=== PATIENT | male | born 1960 | race Caucasian/White ===

== ENCOUNTER 2024-10-01 09:32 | Day surgery (SDC) | payer MEDICARE, BC, SELFPAY ==
--- OUTSIDE RECORDS SUMMARY | 2024-09-27 12:03 | XMS_ITS | Clinical Summary ---
Author Organization [facility] Address [address] [place] [address] Care Team Providers Care Farm Service Adviser Name Role Phone Radhames Casas Primary Care Provider [phone] Allergies No known active allergies Medications clonazePAM (KLONOPIN) 0.5 mg oral tablet Take 1 tablet (0.5 mg) by mouth four times a day as needed (anxiety). Active insulin glargine, pen, (BASAGLAR KWIKPEN U-100 INSULIN) 100 unit/mL SubQ pen Inject 30 Units under the skin at bedtime. Active metFORMIN ER (GLUCOPHAGE XR) 500 mg oral extended release tablet 24 HR Take 3 tablets (1,500 mg) by mouth once a day with evening meal. Active omeprazole (PRILOSEC) 40 mg oral delayed release capsule Take 1 capsule (40 mg) by mouth once daily. Active sildenafiL (VIAGRA) 100 mg oral tablet Take 1 tablet (100 mg) by mouth as needed. Active traZODone (DESYREL) 100 mg oral tablet Take 2-3 tablets (200-300 mg) by mouth at bedtime as needed for sleep. Active ziprasidone hcl (GEODON) 40 mg oral capsule Take 1 capsule (40 mg) by mouth twice a day with breakfast and dinner. Active tamsulosin (FLOMAX) 0.4 mg oral capsule Take 1 capsule (0.4 mg) by mouth once daily. 90 capsule 02/08/2021 2:29 PM CDT Active Additional Information Patient taking differently:0.4 mg oralTWICE A DAY, Reported on 06/20/2023 FLUoxetine (PROZAC) 40 mg oral capsule TAKE 2 CAPSULES BY MOUTH ONCE DAILY 1 Active sucralfate (CARAFATE) 1 gram oral tablet Take 1 tablet (1 g) by mouth twice a day. 3 Active losartan (COZAAR) 50 mg oral tablet Take 1 tablet (50 mg) by mouth Daily. 3 Active terbinafine HCL (LAMISIL) 1 % Top cream Apply 1 Application to skin as directed. 3 Active oxyCODONE-aceta minophen (PERCOCET) 5-325 mg oral tablet Take 1 tablet by mouth every 6 (six) hours as needed. 10 tablet 06/21/2023 4:00 PM CDT 3 Active docusate sodium (COLACE) 100 mg oral capsule Take 1 capsule (100 mg) by mouth twice a day. 30 capsule 06/21/2023 4:00 PM CDT 3 Active phenazopyridine (PYRIDIUM) 100 mg oral tablet Take 1 tablet (100 mg) by mouth three times a day. 6 tablet 3 Active Active Problems Problem Noted Date Diagnosed Date Multiple fractures of rib involving four or more ribs 02/05/2021 Accidental fall from ladder 02/05/2021 Closed fracture of transvers e process of lumbar vertebra (Left L2) with routine healing 02/05/2021 Hip hematoma, left, initial encounter 02/05/2021 Family History Medical History Relation Comments Mental Illness Mother Relation Status Comments Mother Social History Tobacco Use Types Packs/Day Years Used Date Smoking Tobacco: Former Smokeless Tobacco: Never Alcohol Use Standard Drinks/Week Comments Yes 0 (1 standard drink = 0.6 oz pur e alcohol) social Sex and Gender Information Value Date Recorded Sex Assigned at Not on file Legal Sex Male 1:42 AM CDT Gender Identity Not on file Sexual Orientation Not on file Last Filed Vital Signs Vital Sign Reading Time Taken Comments Blood Pressure 150/97 06/21/2023 4:00 PM CDT Pulse 70 06/21/2023 4:00 PM CDT Temperature 36.4 C (97.5 F) 06/21/2023 2:53 PM CDT Respiratory Rate 16 06/21/2023 4:00 PM CDT Oxygen Saturation 97% 06/21/2023 4:00 PM CDT Inhaled Oxygen Concentration - - Weight 93.4 kg (206 lb) 06/20/2023 9:20 AM CDT Height 182.9 cm (6') 06/20/2023 9:20 AM CDT Body Mass Index 27.94 06/20/2023 9:20 AM CDT Plan of Treatment Health Maintenance Due Date Last Done Comments Colonoscopy 1960 Eye Exam 1960 Hepatitis C Screening 1960 Lipid Screening 1960 Microalbumin Q12 Month 1960 Anxiety Screening (NENA-2) 1961 Depression Assessment (PHQ-2) 1961 Zoster Vaccine (1 of 2) 2010 Pneumococcal <65 (2 of 2 - PCV) 10/09/2013 3, 12/05/2007 Adult Tetanus Booster 03/31/2017 03/31/2007 RSV Vaccines (1 - Risk 60-74 years 1-dose series) 2020 HgbA1C 08/09/2021 02/06/2021 Yearly Review of HCD 02/05/2022 02/05/2021 Creatinine 05/20/2024 05/20/2023, 04/26, 02/06/2021, Additional history exists COVID-19 Vaccine (1 - 2023-2 5 season) 2024 10/14/2021 Influenza Vaccine (#1) 2024 0, 10/02/2019, 09/13/2018, Additional history exists Procedures Procedure Name Priority Date/Time Associated Diagnosis Comments BASIC METAB PROFILE Routine 02/06/2021 6 :50 AM CDT HBA1C / EAG Routine 02/06/2021 6:50 AM CDT from Last 3 Months or Most Recently Relevant to Health Maintenance Results * (ABNORMAL) Hgb A1c (Glycosolated Hgb) (02/06/2021 6:50 AM CDT) HBA1C (GLYCOSOLATED HGB) 10.2(H) <5.7 % 02/06/2021 10:[address] [facility] EAG (EST. AVERAGE GLUCOSE) 246(H) <117 mg/dL 02/06/2021 10:25 AM [facility] Blood 02/06/2021 6:50 AM CDT 02/06/2021 7:35 AM CDT Peri Garcia [facility] CHEMISTRY ORDERABLE Final Re sult [facility] [address] [place] [address] * (ABNORMAL) Basic Metabolic Profile (02/06/2021 6:50 AM CDT) Sodium 136 136 - 145 mmol/L 02/06/2021 7:55 AM [facility] Potassium 3.7 3.5 - 5.1 mmol/L 02/06/2021 7:55 AM [facility] Chloride 104 98 - 112 mmol/L 02/06/2021 7:55 AM [facility] Carbon Dioxide 29 21 - 32 mmol/L 02/06/2021 7:55 AM [facility] BUN (Urea Nitro) 13 7 - 24 mg/dL 02/06/2021 7:55 AM [facility] Creatinine 0.80 0.70 - 1.30 mg/dL 02/06/2021 7:55 AM [facility] Est GFR (CKD-EPI) >60 >60 mL/min 02/06/2021 7:55 AM [facility] EST GFR IF AM >60 >60 mL/min 02/06/2021 7:55 AM [facility] Glucose 238(H) 74 - 106 mg/dL 02/06/2021 7:55 AM [facility] Calcium, Serum 8.8 8.5 - 10.1 mg/dL 02/06/2021 7:55 AM [facility] Anion Gap 3.0 0.0 - 15.0 mmol/L 02/06/2021 7:55 AM [facility] Blood 02/06/2021 6:50 AM CDT 02/06/2021 7:34 AM CDT us William Chamberlain [employer], [employer]BLER CHEMISTRY ORDERABL E Final Result [facility] [address] [id number] from Last 3 Months or Most Recently Relevant to Health Maintenance Insurance [id number] [place] [address] MEDICARE PART A & B [facility] [employer] [id number] [place] [address] Advance Directives For more information, please contact: [phone] * Full Code (Latest Code Status on File) Date Activated Date Inactivated Comments 06/21/2023 2:40 PM 06/21/2023 10:51 PM Question Answer Comments How was code status determined? Patient * Full Code Date Activated Date Inactivated Comments 02/05/2021 5:27 AM 02/08/2021 9:54 PM Question Answer Comments How was code status determined? Patient Care Teams Farm Service Adviser Relationship Specialty Start Date End Date Radhames Casas [address] [facility] [place] [address] PCP - General Family Medicine 02/05/21
--- OUTSIDE RECORDS SUMMARY | 2024-09-27 12:03 | XMS_ITS | Data Portability ---
Author Organization [place] - Dragan Mayorgalo gy, [facility] Address [address] [place] [address] Care Team Providers Care [employer] Manager Name Role Phone NOLBERTO TAVERA Primary Care Provider Assessment No assessment recorded. Plan of Treatment Reminders Order Date Submit Date Provider Last Modified By Organization Details Last Modified Time Details Appointments None recorded. Lab urinalysi s, dipstick 2022 023 [email or web address] [facility], [address], [place], [address], Ph 3 11:36:34 Referral None recorded. Procedures bladder scan (PROC) 2021 022 [email or web address] [facility], [address], [address], [place], [address], Ph 2 12:00:39 bladder scan (PROC) 2022 023 [email or web address] [facility], [address], [address], [place], [address], Ph 3 11:36:34 bladder scan (PROC) 2022 023 [email or web address] [facility], [address], [address], [place], [address], Ph [phone] 11:45:55 bladder scan (PROC) 2023 024 [email or web address] [facility], [address], [address], [place], [address], Ph [phone] 11:48:27 Surgeries None recorded. Imaging None recorded. Medication Orders cephalexi n 500 mg capsule [email or web address] [facility] [address] [place] [address], [address], 11:27:08 Patient TargetsNo targets recorded. Patient Instructions Encounter Date Encounter Id Patient Instructions Last Modified By Organization Details Last Modified Time 02/12/2022 [id number] Hector Fortune is a 61-year-old male with past medical history significant for Spencer's esophagus, depression, diabetes, GERD, PTSD, schizophrenia, and BPH who was seen in the hospital as a consult for urinary retention after he was admitted following a fall from a ladder. He was started on Flomax in the hospital. Patient successfully passed a void trial and was noted to be doing well on the tamsulosin at his last appointment. At his last appointment, patient was noted to be doing well on the tamsulosin and wished to continue with medical management. He also complained of erectile dysfunction. He was given a prescription for Viagra. He is here today for follow-up. Patient with persistent difficulty emptying the bladder. Large capacity bladder. Discussed options for voiding dysfunction and incomplete emptying. Recommended tamsulosin BID vs surgical options and starting CIC BID. He is interested in surgery. Plan: - CIC BID for urinary retention - RTC for next available cysto and TRUS [email or web address] Not available 02/12/2022 19:09:09 04/05/2022 [id number] Hector Fortune is a 61-year-old male with past medical history significant for Spencer's esophagus, depression, diabetes, GERD, PTSD, schizophrenia, and BPH who was seen in the hospital as a consult for urinary retention after he was admitted following a fall from a ladder. He was started on Flomax in the hospital. Patient successfully passed a void trial. At his last appointment, patient was noted to have persistent difficulty with emptying his bladder and was interested in pursuing surgical options for management of his urinary retention. He is here today for cystoscopy and TRUS volume study. Cysto showed small prostate with small median lobe, kissing lateral lobes. TRUS showed volume of roughly 30 cc. Poor quality study, large amount of gas. Patient reports he has been doing well since last appointment. Pleased with voiding symptoms. Discussed continuing CIC but waiting on surgery at this time. Bladder full at the time of cysto today. Plan: - Continue CIC BID for poor emptying - Continue tamsulosin BID - Will hold on surgical options - RTC in 6 months with flow, PVR, and AUA SS [email or web address] Not available 04/05/2022 11:10:47 02/18/2023 [id number] Hector Fortune is a 62-year-old male with past medical history significant for Spencer's esophagus, depression, diabetes, GERD, PTSD, schizophrenia, and BPH who was seen in the hospital as a consult for urinary retention after he was admitted following a fall from a ladder. He was started on Flomax in the hospital. Patient successfully passed a void trial. At his last appointment, patient was noted to have persistent difficulty with emptying his bladder and was interested in pursuing surgical options for management of his urinary retention. Cysto showed small prostate with small median lobe, kissing lateral lobes. TRUS showed volume of roughly 30 cc. Poor quality study, large amount of gas. At his last appointment, patient was pleased with how he was doing with intermittent catheterization and current voiding systems. He wished to continue with intermittent catheterization and twice daily tamsulosin and wait on surgical options. He is here today for follow-up. Persistent bothersome LUTS, particularly weak stream. Bladder empty. Despite tamsulosin BID. Patient is interested in proceeding with a green light laser ablation of the prostate. Risks of the procedure, including but not limted to pain, bleeding, infection, injury to the urethra, bladder, ureters, urinary retention, bladder neck contracture, retrograde ejaculation, erectile dysfunction, and the need for a second procedure, were discussed in detail. Patient voiced his understanding and wished to proceed with the surgery as described. Plan: - Patient to call to schedule green light laser vaporization of the prostate. SDS. Will remove catheter himself next day. [email or web address] Not available 02/18/2023 11:50:59 07/22/2023 [id number] Hector Fortune is a 63-year-old male with past medical history significant for Spencer's esophagus, depression, diabetes, GERD, PTSD, schizophrenia, and BPH who was seen in the hospital as a consult for urinary retention after he was admitted following a fall from a ladder. He was started on Flomax in the hospital. Patient successfully passed a void trial. At his last appointment, patient was noted to have persistent difficulty with emptying his bladder and was interested in pursuing surgical options for management of his urinary retention. Cysto showed small prostate with small median lobe, kissing lateral lobes. TRUS showed volume of roughly 30 cc. Poor quality study, large amount of gas. At his last appointment, patient was pleased with how he was doing with intermittent catheterization and current voiding systems. He wished to continue with intermittent catheterization and twice daily tamsulosin and wait on surgical options. He was taken to the operating room on 06/21/2023 for a greenlight laser vaporization of the prostate. He returns today for follow-up. AUA SS today 09/11. Has had some UUI. PVR 259 mL today. Voided 31 mL. Likely some detrusor underactivity. Strong stream if bladder is full. Pain that patient had prior to surgery in left groin has resolved. Plan: - Increase water intake - Void regularly - Discussed detrusor underactivity. - RTC in 6 months with PVR and AUA SS [email or web address] Not available 07/22/2023 11:59:30 01/20/2024 [id number] Hector Fortune is a 63-year-old male with past medical history significant for Spencer's esophagus, depression, diabetes, GERD, PTSD, schizophrenia, and BPH who was seen in the hospital as a consult for urinary retention after he was admitted following a fall from a ladder. He was started on Flomax in the hospital. Patient successfully passed a void trial. At his last appointment, patient was noted to have persistent difficulty with emptying his bladder and was interested in pursuing surgical options for management of his urinary retention. Cysto showed small prostate with small median lobe, kissing lateral lobes. TRUS showed volume of roughly 30 cc. Poor quality study, large amount of gas. At his last appointment, patient was pleased with how he was doing with intermittent catheterization and current voiding systems. He wished to continue with intermittent catheterization and twice daily tamsulosin and wait on surgical options. He was taken to the operating room on 06/21/2023 for a greenlight laser vaporization of the prostate. 07/22/2023: AUA symptom score was 14/2. Complained of urge urinary incontinence. Evidence of detrusor underactivity with an elevated postvoid residual. Patient was advised to ensure adequate fluid intake and void regularly. Left groin pain had resolved. He returns today for follow-up. AUA SS today 01/24 Symptoms that he had in July likely consistent with UTI/epididymitis. Has since resolved. Pleased with how he is doing. Plan: - RTC in one year with PSA and AUA SS. [email or web address] Not available 01/20/2024 11:09:41 Reason for Referral None Reported. Results Created Date Observation Date Name Description Value Unit Range Abnormal Flag Note LastModifiedBy Organization Detail LastModifiedTime 02/13/20 22 02/12/2022 bladd er scan (PROC ) Volume (in mL) 394 Not Available [facility] [address], [place], [address], Ph 02/12/2022 12:00:28 02/19/20 23 02/18/2023 urina lysis , dipst ick GLU >=1000 mg/dL Not Available [facility] [address], [place], [address], Ph [phone] 02/18/2023 11:29:13 02/19/20 23 02/18/2023 urina lysis , dipst ick KET Trace Not Available [facility] [address], [place], [address], Ph 02/18/2023 11:29:13 02/19/20 23 02/18/2023 urina lysis , dipst ick pH 5.5 Not Available [facility] [address], [place], [address], Ph 02/18/2023 11:29:13 02/19/20 23 02/18/2023 bladd er scan (PROC ) Volume (in mL) 0 Not Available [facility] [address], [place], [address], Ph 02/18/2023 11:29:11 07/22/20 23 07/22/2023 bladd er scan (PROC ) Volume (in mL) 259 Not Available [facility] [address], [place], [address], Ph 07/22/2023 11:44:48 01/20/20 24 01/20/2024 bladd er scan (PROC ) Volume (in mL) 286 Not Available [facility] [address], [place], [address], Ph [phone] 01/20/2024 10:54:48 Result Notes None recorded. Problems Name Problem SNOMED Code Status Onset Date Resolution Date Notes Provider Name and Address Organization Details Recorded Time Benign prostatic hyperplasia with outflow obstruction 211699510 Active 2020 Julián Gallegos MD [address] [place] [address],[address] [place] [address], [address], [facility] 1 08:01:43 Primary erectile dysfunction 158318511 Active 2021 Julián Gallegos MD [address] [place], [place] [address], [place], [address], [facility] 2 11:50:46 Retention of urine 777895380 Active 2021 Julián Gallegos MD [address] [place], [place] [address] [place] [address], [facility] 2 19:09:14 Overactive urinary bladder 699299369 Active 2023 Julián Gallegos MD [address] [place], [place] [address] [place] [place] [address], [facility] 4 17:50:50 Problem Notes None recorded. Procedures Surgical History Date Name Laterality Status Provider Name and Address Organization Details Recorded Time 4 COMPLEX VISIT completed Julián Gallegos MD [address] [place] [address],[address], [place], [address], [facility] 01/20/2024 12:29:53 3 [place] - Uroflow completed Sherry Saba [facility] 07/22/2023 11:45:48 2 Cystoscopy- male completed Julián Gallegos MD [address] [place] [address],[address], [place], [address], [facility] 04/05/2022 11:08:42 2 [place] - TRUS Volume size only completed Julián Gallegos MD [address] [place] [address],[address], [place], [address] [place] [address] 04/05/2022 11:08:51 2 [place] - Uroflow completed Joanna [facility] 02/12/2022 14:35:25 1 Fill and Pull/Voiding Trial/TOV completed Julián Gallegos MD [address] [place] [address],[address], [place], [address] [place] [address] 02/18/2021 11:31:09 9 colonoscopy completed Joanna Thompson [facility] 02/18/2021 10:34:56 Imaging Results None recorded. Procedure Notes None recorded. Medical Equipment None Reported. Allergies Allergen ID Allergen Name Allergen Category Reaction Reaction Severity Criticality Documentation Date Start Date Code Code System Note Provider Name and Address Organization Details Recorded Time [id number] ethinyl estradiol / levonorge strel medicatio n Not available Not available Not available 02/18/2021 90416 8 RxNorm Not Available Not Available Not Available Medications Name Sig Start Date Stop Date Status Note LastModified by Organization Details LastModified Time losartan 50 mg tablet TAKE 1 TABLET BY MOUTH ONCE DAILY active Not Available Not Available No t Available fluoxetine 40 mg capsule TAKE 1 CAPSULE BY MOUTH ONCE DAILY active Not Available Not Available No t Available ziprasidone 80 mg capsule TAKE 1 CAPSULE BY MOUTH TWICE DAILY WITH MEALS active Not Available Not Available No t Available amoxicillin 500 mg capsule TAKE 1 CAPSULE BY MOUTH EVERY 8 HOURS UNTIL GONE 10/16 completed Not Available Not Available Not Available doxycycline hyclate 100 mg capsule TAKE 1 CAPSULE BY MOUTH TWICE DAILY FOR 5 DAYS 10/16 completed Not Available Not Available Not Available clindamycin HCl 300 mg capsule TAKE 1 CAPSULE BY MOUTH THREE TIMES DAILY FOR 14 DAYS active Not Available Not Available No t Available triazolam 0.25 mg tablet TAKE 1 TABLET BY MOUTH 1 HOUR PRIOR TO APPOINTME NT AND TAKE 2ND TABLET AT THE APPOINTME NT active Not Available Not Available No t Available trazodone 50 mg tablet TAKE 2 TO 3 TABLETS BY MOUTH ONCE DAILY AT BEDTIME 02/18 completed Not Available Not Available Not Available azithromyci n 250 mg tablet TAKE 2 TABLETS BY MOUTH ON DAY 1 AND THEN TAKE 1 TABLET BY MOUTH ONCE A DAY ON DAY 2 THROUGH DAY 5 02/18 completed Not Available Not Available Not Available sucralfate 1 gram tablet TAKE 1 TABLET BY MOUTH TWICE DAILY BEFORE MEAL(S) active Not Available Not Available No t Available prednisone 20 mg tablet TAKE 2 TABLETS BY MOUTH ONCE DAILY FOR 5 DAYS 10/16 completed Not Available Not Available Not Available clonazepam 0.5 mg tablet TAKE 1 TABLET BY MOUTH TWICE DAILY NEEDED FOR ANXIETY 02/18 completed Not Available Not Available Not Available hydroxyzine HCl 50 mg tablet TAKE 1 TO 2 TABLETS BY MOUTH ONCE DAILY AT BEDTIME NEEDED FOR SLEEP active Not Available Not Available No t Available acetaminoph en 300 mg-codeine 30 mg tablet TAKE 1 TABLET BY MOUTH EVERY 6 HOURS NEEDED FOR PAIN active Not Available Not Available No t Available sulfamethox azole 800 mg-trimetho prim 160 mg tablet TAKE 1 TABLET BY MOUTH TWICE DAILY FOR 10 DAYS active Not Available Not Available No t Available omeprazole 40 mg capsule,del ayed release TAKE 1 CAPSULE BY MOUTH ONCE DAILY active Not Available Not Available No t Available tramadol 50 mg tablet TAKE 1 TABLET BY MOUTH EVERY 6 HOURS 10/16 completed Not Available Not Available Not Available sildenafil 100 mg tablet TAKE 1 TABLET BY MOUTH ONCE DAILY active Not Available Not Available No t Available triamcinolo ne acetonide 0.1 % topical cream APPLY CREAM EXTERNALL Y TO AFFECTED AREA TWICE DAILY active Not Available Not Available No t Available cefadroxil 500 mg capsule TAKE 1 CAPSULE BY MOUTH TWICE DAILY FOR 7 DAYS 02/18 completed Not Available Not Available Not Available oxycodone-a cetaminophe n 5 mg-325 mg tablet active Not Available Not Available No t Available methocarbam ol 750 mg tablet TAKE 1 TABLET BY MOUTH 4 TIMES DAILY 10/16 completed Not Available Not Available Not Available tamsulosin 0.4 mg capsule TAKE 1 CAPSULE BY MOUTH ONCE DAILY AFTER A MEAL active Not Available Not Available No t Available trazodone 100 mg tablet TAKE 1 TO 2 TABLETS BY MOUTH ONCE DAILY AT BEDTIME active Not Available Not Available No t Available benzonatate 100 mg capsule TAKE 1 CAPSULE BY MOUTH THREE TIMES DAILY NEEDED FOR COUGH active Not Available Not Available No t Available cephalexin 500 mg capsule TAKE 1 CAPSULE BY MOUTH THREE TIMES DAILY FOR 10 DAYS active Not Available Not Available No t Available ziprasidone 40 mg capsule TAKE 1 CAPSULE BY MOUTH ONCE DAILY active Not Available Not Available No t Available ibuprofen 600 mg tablet 02/18 completed Not Available Not Available Not Available hydroxyzine HCl 10 mg tablet TAKE 1 TO 3 TABLETS BY MOUTH AT BEDTIME NEEDED FOR ANXIETY OR INSOMNIA active Not Available Not Available No t Available ziprasidone 60 mg capsule TAKE 1 CAPSULE BY MOUTH TWICE DAILY WITH MEALS active Not Available Not Available No t Available fluoxetine 20 mg capsule TAKE 1 CAPSULE BY MOUTH ONCE DAILY active Not Available Not Available No t Available fluticasone propionate 50 mcg/actuati on nasal spray,suspe nsion USE 1 SPRAY(S) IN EACH NOSTRIL TWICE DAILY active Not Available Not Available No t Available metformin ER 500 mg tablet,exte nded release 24 hr TAKE 3 TABLETS BY MOUTH ONCE DAILY WITH EVENING MEAL active Not Available Not Available No t Available amoxicillin 875 mg-potassiu m clavulanate 125 mg tablet TAKE 1 TABLET BY MOUTH TWICE DAILY WITH MEALS FOR 10 DAYS 02/18 completed Not Available Not Available Not Available oxycodone 5 mg tablet TAKE 1 TABLET BY MOUTH EVERY 4 HOURS NEEDED FOR PAIN 10/16 completed Not Available Not Available Not Available bupropion HCl XL 150 mg 24 hr tablet, extended release TAKE 1 TABLET BY MOUTH ONCE DAILY active Not Available Not Available No t Available BD Ultra-Fine Original Pen Needle 29 gauge x 1/2 FOR ADMINISTE RING INSULIN AT HOME active Not Available Not Available No t Available Virtussin AC 10 mg-100 mg/5 mL oral liquid TAKE 10 ML BY MOUTH AT BEDTIME NEEDED FOR COUGH MAXIMUM DOSE IS 60 ML PER 24 HOURS active Not Available Not Available No t Available Ehsanaglmichela ReillyPen U-100 Insulin 100 unit/mL (3 mL) subcutaneou s INJECT 30 UNITS UNDER THE SKIN BEFORE BEDTIME active Not Available Not Available No t Available Accu-Chek Guide test strips USE TO TEST ONCE DAILY active Not Available Not Available No t Available Accu-Chek Guide Glucose Meter USE DIRECTED active Not Available Not Available No t Available Vitals Date Recorded Body height Body mass index (BMI) Body weight Respiratory rate Provider Name and Address Organization Details Last Updated DateTime 02/18/2023 182.88 cm 28.5 kg/m2 02107.4 g 16 /min Keisha Asif [facility] 02/18/2023 11:26:39 Date Recorded Body height Body mass index (BMI) Body weight Respiratory rate Provider Name and Address Organization Details Last Updated DateTime 07/22/2023 182.88 cm 28.5 kg/m2 38580.4 g 16 /min Sherry Saba [facility] 07/22/2023 11:42:58 Date Recorded Body height Provider Name an d Address Organization Details Last Updated DateTime 01/20/2024 182.88 cm Aggie Blount [facility] 11:00:38 Date Recorded Body height Body mass index (BMI) Body weight Provider Name and Address Organization Details Last Updated DateTime 02/12/2022 182.88 cm 28.5 kg/m2 11136.4 g Julián Gallegos MD [address] [place] [address],[facility] [address], [place], [address], [facility] 02/12/2022 11:56:43 Date Recorded Body height Body mass index (BMI) Body weight Provider Name and Address Organization Details Last Updated DateTime 04/05/2022 182.88 cm 28.5 kg/m2 22918.4 g Keisha Francis [facility] 04/05/2022 10:56:18 Social History Question Answer Notes LastModified by Organizat ion Details LastModified Time Tobacco Smoking Status Former Smoker Joanna carlisle [facility] 02/18/2021 10:34:34 What Is Your Level Of Alcohol Consumption? Occasional Information not available 07/22/2023 What Was The Date Of Your Most Recent Tobacco Screening? 01/20/2024 [email or web address] Information not available 01/20/2024 Have You Ever Been Counseled For Unhealthy Alcohol Use? No [email or web address] Information not available 07/22/2023 Do You Use Any Illicit Or Recreational Drugs? No [email or web address] Information not available 07/22/2023 How Many Days In The Past Year Have You Consumed 5 Or More Drinks? 0 [email or web address] Information no t available 07/22/2023 Sex: Unknown Functional Status None recorded. Mental Status None recorded. Family History Nothing Reported. Medical History Condition Response Other N High Blood Pressure Y Kidney Stones N Depression Y Lung Disease N GERD/Acid Reflux Y Diabetes Y Sexually Transmitted Infection N Bleeding Disorder N Cancer N High Cholesterol N Heart Disease N Immunizations Vaccine Type Date Status Note Provider Nam e and Address Organization Details Recorded Time COVID-19, mRNA, LNP-S, PF, 10 mcg/0.2 mL dose, micki-sucrose [facility] 11:43:07 COVID-19, mRNA, LNP-S, PF, 100 mcg/0.5mL dose or 50 mcg/0.25mL dose 2 completed Keisha carlisle [facility] 02/18/2023 11:26:44 pneumococcal polysaccharide PPV23 3 completed Keisha carlisle [facility] 02/18/2023 11:26:44 pneumococcal polysaccharide PPV23 8 completed Keisha carlisle [facility] 02/18/2023 11:26:44 Tdap 7 completed Keisha carlisle [facility] 02/18/2023 11:26:44 Influenza, split virus, trivalent, preservative 3 completed Keisha carlisle [facility] 02/18/2023 11:26:44 Influenza, split virus, trivalent, preservative 3 completed Keisha carlisle [facility] 02/18/2023 11:26:44 Influenza, split virus, trivalent, preservative 8 completed Keisha Asif null, [facility] 02/18/2023 11:26:44 Influenza, split virus, trivalent, preservative 4 completed Keisha Asif null, [facility] 02/18/2023 11:26:44 Influenza, split virus, quadrivalent, PF 0 completed Keisha Asif null, [facility] 02/18/2023 11:26:44 Influenza, split virus, quadrivalent, PF 0 completed Keisha Asif null, [facility] 02/18/2023 11:26:44 Influenza, split virus, quadrivalent, PF 4 completed Keisha Asif null, [facility] 02/18/2023 11:26:44 Influenza, split virus, quadrivalent, PF 8 completed Keisha carlisle, [facility] 02/18/2023 11:26:44 zoster recombinant 2 [facility] 11:43:07 COVID-19, mRNA, LNP-S, PF, 100 mcg/0.5mL dose or 50 mcg/0.25mL dose 2 [facility] 11:43:07 Tdap 2 [facility] 11:43:07 Past Encounters Encounter ID Performer Location Encounter Start Date Encounter Closed Date Diagnosis/Indication Diagnosis SNOMED-CT Code Diagnosis ICD10 Code [id number] Julián Gallegos MD [address] ,[address] [place] [address] 02/18/2021 10:29:14 02/20/2021 11:59:57 Benign prostatic hyperplasia with outflow obstruction [id number] N40.1 [id number] Julián Gallegos MD [address] ,[address] [place] [address] 04/01/2021 14:08:32 04/03/2021 15:53:30 Benign prostatic hyperplasia with outflow obstruction 018947040 N40.1 [id number] Julián Gallegos MD [facility] [address] [facility] [place] [address] 10/16/2021 11:25:55 10/19/2021 11:01:38 Benign prostatic hyperplasia with outflow obstruction 070419747 N40.1 Primary er ectile dysfunction 408844294 N52.9 [id number] Joanna Thompson [facility] [address] [facility] [place] [address] 02/12/2022 11:20:10 02/15/2022 16:30:08 Benign prostatic hyperplasia with outflow obstruction 589727475 N40.1 Primary er ectile dysfunction 757857474 N52.9 Retention of urine 45474 4002 R33.9 [id number] Julián Gallegos MD [facility] [address],[place] [address] [place] [address] 04/05/2022 10:47:54 04/07/2022 11:36:59 Retention of urine 513088714 R33.9 [id number] Julián Gallegos MD [facility] [address] [facility] [place] [address] 02/18/2023 10:50:54 02/28/2023 18:13:55 Retention of urine 755744377 R33.9 [id number] Julián Gallegos MD [facility] [address],[place] [address] [place] [address] 07/22/2023 10:53:28 07/27/2023 11:57:43 Benign prostatic hyperplasia with outflow obstruction [id number] N40.1 [id number] Julián Gallegos MD [facility] [address] [facility] [place] [address] 01/20/2024 10:26:05 01/20/2024 15:43:03 Benign prostatic hyperplasia with outflow obstruction [id number] N40.1 Overactive urinary bladder [id number] N32.81 Health Concerns Section Related Observation LastModified by Organization Detai ls LastModified Time None Recorded Concern Status LastModified by Organization Details LastModified Time None Recorded Advance Directives Directive None Recorded Payers Encounter Date Sequence Insurance Name Policy Number Policy Hagen Covered Member ID Hagen Member ID Guarantor Name 02/12/2022 1 [place] [id number] Hector V Lacanne [id number] Hector V Lacanne 04/05/2022 1 [place] [id number] Hector V Lacanne [id number] Hector V Lacanne 02/18/2023 1 [place] [id number] Hector V Lacanne [id number] Hector V Lacanne 07/22/2023 1 [place] [id number] Hector V Lacanne [id number] Hector V Lacanne 01/20/2024 1 [place] [id number] Hector V Lacanne [id number] Hector V Lacanne Notes Date Note Type Note Provider Name and Address Organization Details Recorded Time 02/12/2022 text/html Hector Fortune is a 61-year-old male with past medical history significant for Spencer's esophagus, depression, diabetes, GERD, PTSD, schizophrenia, and BPH who was seen in the hospital as a consult for urinary retention after he was admitted following a fall from a ladder.He was started on Flomax in the hospital.Patient successfully passed a void trial and was noted to be doing well on the tamsulosin at his last appointment. At his last appointment, patient was noted to be doing well on the tamsulosin and wished to continue with medical management.He also complained of erectile dysfunction. He was given a prescription for Viagra.He is here today for follow-up. Has been doing well since last appointment. Voided 538 mL, Qmax 21.4, PVR 394. Has been taking viagra, not on an empty stomach. Not working for him. Joanna carlisle [place] [facility] 02/15/2022 10:32:19 04/05/2022 text/html Hector Fortune is a 61-year-old male with past medical history significant for Spencer's esophagus, depression, diabetes, GERD, PTSD, schizophrenia, and BPH who was seen in the hospital as a consult for urinary retention after he was admitted following a fall from a ladder.He was started on Flomax in the hospital.Patient successfully passed a void trial. At his last appointment, patient was noted to have persistent difficulty with emptying his bladder and was interested in pursuing surgical options for management of his urinary retention.He is here today for cystoscopy and TRUS volume study. Was seen in the ED and was told to stop doing CIC as bladder was empty. Julián Gallegos MD [address] [place] [address],[address], [place], [address], [facility] 04/05/2022 11:48:27 02/18/2023 text/html Hector Fortune is a 62-year-old male with past medical history significant for Spencer's esophagus, depression, diabetes, GERD, PTSD, schizophrenia, and BPH who was seen in the hospital as a consult for urinary retention after he was admitted following a fall from a ladder.He was started on Flomax in the hospital.Patient successfully passed a void trial.At his last appointment, patient was noted to have persistent difficulty with emptying his bladder and was interested in pursuing surgical options for management of his urinary retention.He is here today for cystoscopy and TRUS volume study.Cysto showed small prostate with small median lobe, kissing lateral lobes.TRUS showed volume of roughly 30 cc. Poor quality study, large amount of gas. At his last appointment, patient was pleased with how he was doing with intermittent catheterization and current voiding systems. He wished to continue with intermittent catheterization and twice daily tamsulosin and wait on surgical options.He is here today for follow-up. AUA SS today 11. 4 in weak stream. Patient reported that he has not been catheterizing because he was told his bladder is always empty. Julián Gallegos MD [address] [place] [address],[address], [place], [address], [facility] 02/18/2023 12:07:37 07/22/2023 text/html Hector Fortune is a 63-year-old male with past medical history significant for Spencer's esophagus, depression, diabetes, GERD, PTSD, schizophrenia, and BPH who was seen in the hospital as a consult for urinary retention after he was admitted following a fall from a ladder.He was started on Flomax in the hospital.Patient successfully passed a void trial.At his last appointment, patient was noted to have persistent difficulty with emptying his bladder and was interested in pursuing surgical options for management of his urinary retention.Cysto showed small prostate with small median lobe, kissing lateral lobes.TRUS showed volume of roughly 30 cc. Poor quality study, large amount of gas.At his last appointment, patient was pleased with how he was doing with intermittent catheterization and current voiding systems. He wished to continue with intermittent catheterization and twice daily tamsulosin and wait on surgical options. He was taken to the operating room on 06/21/2023 for a greenlight laser vaporization of the prostate.He returns today for follow-up. Doing well. AUA SS today 14/2. Has had some UUI. PVR 259 mL today. Voided 31 mL. Julián Gallegos MD [address] [place] [address],[address], [place], [phone] 07/22/2023 12:29:09 01/20/2024 text/html Hector Fortune is a 63-year-old male with past medical history significant for Spencer's esophagus, depression, diabetes, GERD, PTSD, schizophrenia, and BPH who was seen in the hospital as a consult for urinary retention after he was admitted following a fall from a ladder.He was started on Flomax in the hospital.Patient successfully passed a void trial.At his last appointment, patient was noted to have persistent difficulty with emptying his bladder and was interested in pursuing surgical options for management of his urinary retention.Cysto showed small prostate with small median lobe, kissing lateral lobes.TRUS showed volume of roughly 30 cc. Poor quality study, large amount of gas.At his last appointment, patient was pleased with how he was doing with intermittent catheterization and current voiding systems. He wished to continue with intermittent catheterization and twice daily tamsulosin and wait on surgical options.He was taken to the operating room on 06/21/2023 for a greenlight laser vaporization of the prostate.07/22/2023: AUA symptom score was 14/2. Complained of urge urinary incontinence. Evidence of detrusor underactivity with an elevated postvoid residual. Patient was advised to ensure adequate fluid intake and void regularly. Left groin pain had resolved.He returns today for follow-up. Has been doing well. AUA SS today 01/24 Very pleased with urinary symptoms. Complains of swelling in the scrotum. Started last July. Additionally, complained of urge incontinence. Symptoms have all resolved. Julián Gallegos MD [address] [facility],[address], [place], [address], [facility] 01/20/2024 12:30:09
--- OUTSIDE RECORDS SUMMARY | 2024-09-27 12:06 | XMS_ITS ---
Author Organization [facility] Address [address] [place] [address] Care Team Providers Care Rubber Goods Inspector Name Role Phone Unavailable Unavailable Unavailable Surgery Details Not on file Complications Check Surgery Details section. Procedure Estimated Blood Loss Check Surgery Details section. Procedure Findings Check Surgery Details section. Procedure Specimens Taken Check Surgery Details section.
--- OUTSIDE RECORDS SUMMARY | 2024-09-27 12:06 | XMS_ITS | Encounter Summary ---
Author Organization [facility] Address [address] [place] [address] Care Team Providers Care Flux Core Welder Name Role Phone Yudi Gunn APRN, C.N.P., D.N.P. P [place] [place] Care Provider Reason for Visit * Reason Comments Pre-op Exam Dr. Floyd 08/17-Feltonina * Appointment Request (Routine) - Closed Specialty Diagnoses / Procedures Referred By Zuleyma t Referred To Contact Family Medicine Referral ID Status Reason Start Date Expiration Date Visits Re quested Visits Authorized [id number] Closed 08/15/2024 08/15/2025 1 1 Encounter Details Date Type Department Care Team (Late st Contact Info) Description 08/16/2024 2:30 PM ASSISTANT PROFESSOR IN FAMILY STUDIES Office Visit Department of Family Medicine, [facility], in [place], [place] [address] [place] [phone] Bob Vela, P.A.-Aziza. [address] [place] [phone] Preoperative Exam (Primary Dx) Social History Tobacco Use Types Packs/Day Years Used Date Smoking Tobacco: Former Cigarettes Smokeless Tobacco: Never Tobacco Cessation:Counseling Given: Not Answered Alcohol Use Standard Drinks/Week Comments Yes 16 (1 standard drink = 0.6 oz pu re alcohol) [facility] Utilities Answer Date Recorded In the past 12 months has [employer], gas, oil, or water company threatened to shut off services in your home? Patient declined 04/03/2024 PHQ-2 Answer Date Recorded PHQ-2 Score 2 04/03/2024 Exercise Vital Sign Answer Date Recorde d On average, how many days pe r week do you engage in moderate to strenuous exercise (like a brisk walk)? 0 days Minutes of Exercise per Session Not on file 04/03/2024 Hunger Vital Sign Answer Date Recorded Within the past 12 months, y ou worried that your food would run out before you got the money to buy more. Patient declined Within the past 12 months, t he food you bought just didn't last and you didn't have money to get more. Patient declined 05/2024 PRAPARE - Transportation Answer Date Re corded In the past 12 months, has l ack of transportation kept you from medical appointments or from getting medications? Yes 04/03/2024 In the past 12 months, has l ack of transportation kept you from meetings, work, or from getting things needed for daily living? Patient declined 04/03/2024 Depression Answer Date Recor ded PHQ-9 Total Score (max 27) 13 04/03 Nutrition Answer Date Recorded On average, how many serving s of fruits and vegetables do you eat per day (serving size is equal to 1 cup or approximately the size of a tennis ball)? 0-2 04/03/2024 Dental Answer Date Recorded Dental: Regular Dentist No 04/03/20 24 Employment Answer Date Recorded Employment status Permanently disabled Housing Stability Answer Date Recorded What is your living situation today? I h ave a place to live today, but I am worried about losing it in the future 04/03/2024 Sex and Gender Information Value Date Recorded Sex Assigned at Male 04/03/2024 9:49 AM CDT Legal Sex Male 5:43 PM ASSISTANT PROFESSOR IN FAMILY STUDIES Gender Identity Male 04/03/2024 10:02 AM CDT Sexual Orientation Choose not to disclose 2023 10:02 AM CDT documented as of this encounter Last Filed Vital Signs Vital Sign Reading Time Taken Comments Blood Pressure 130/87 08/16/2024 2:32 PM ASSISTANT PROFESSOR IN FAMILY STUDIES Pulse 105 08/16/2024 2:32 PM ASSISTANT PROFESSOR IN FAMILY STUDIES Temperature 36 C (96.8 F) 08/16/2024 2:25 PM ASSISTANT PROFESSOR IN FAMILY STUDIES Respiratory Rate 16 08/16/2024 2:25 PM ASSISTANT PROFESSOR IN FAMILY STUDIES Oxygen Saturation 97% 08/16/2024 2:25 PM ASSISTANT PROFESSOR IN FAMILY STUDIES Inhaled Oxygen Concentration - - Weight 99.2 kg (218 lb 9.4 oz) 08/16/2024 2:25 P M ASSISTANT PROFESSOR IN FAMILY STUDIES Height 184 cm (6' 0.44) 08/16/2024 2:25 PM ASSISTANT PROFESSOR IN FAMILY STUDIES Body Mass Index 29.29 08/16/2024 2:25 PM ASSISTANT PROFESSOR IN FAMILY STUDIES documented in this encounter H&P Notes * Bob Vela P.A.-C. - 08/16/2024 2:30 PM CST SUBJECTIVE PREOPERATIVE HISTORY AND PHYSICAL CHIEF COMPLAINT / REASON FOR VISIT Hector Sharp is a 64 y.o. male who presents for evaluation of Pre-op Exam (Dr. Floyd 08/17/24-Aniket). HISTORY OF PRESENT ILLNESS Hector presents today for preop history and physical prior to skin grafting surgery to be done tomorrow by his Podiatry team. He has a longstanding history of diabetes. This is poorly controlled he recently switched to our clinic and has been following with Yudi. She has him following up with endocrinology. He has been adjusting his insulin recently and he says his sugars have been running between 150 and 200. He apparently was seen by his manager sustainability today and is aware of his hemoglobin A1c of 9.2. His hemoglobin A1c a year ago was much improved. He has a history of PTSD and this has been pretty well controlled. He takes Geodon on a regular basis. He says he is able to walk two blocks without having chest pain or shortness of breath but is limited and is not supposed to be walking because of the sores on the plantar surface of his feet. Current Outpatient Medications Medication Sig Dispense Refill Accu-Chek Guide test strips USE 1 STRIP ONCE DAILY Basaglar KwikPen U-100 Insulin 100 unit/mL (3 mL) injection INJECT 30 UNITS UNDER THE SKIN BEFORE BEDTIME blood sugar diagnostic strips (Accu-Chek Guide test strips) USE TO TEST ONCE DAILY blood-glucose meter (Accu-Chek Guide Glucose Meter) misc See Admin Instructions. famotidine (Pepcid) 20 mg tablet Take 1 tablet (20 mg total) by mouth 2 (two) times a day. 180 tablet 3 losartan (Cozaar) 50 mg tablet Take 1 tablet (50 mg total) by mouth daily. 90 tablet 3 metFORMIN XR (Glucophage-XR) 500 mg 24 hr tablet TAKE 2 TABLETS BY MOUTH TWICE DAILY WITH MEALS 360tablet 3 minocycline 100 mg capsule Take 1 capsule (100 mg total) by mouth 2 (two) times a day before morning and evening meals. 60 capsule 0 pen needle, diabetic (BD Ultra-Fine Orig Pen Needle) 29 gauge x 1/2 needle FOR ADMINISTERING INSULIN AT HOME ziprasidone (GEODON) 60 mg capsule Take 1 capsule by mouth 2 (two) times a day with meals. Patient takes 80 mg twice a day No current facility-administered medications for this visit. 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) 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) Dysfunction Erectile Gastroesophageal Reflux Disease NOS Hypertension Essential Primary Nicotine Dependence Cigarettes In Remission Anxiety Generalized Disorder Posttraumatic Stress Disorder Brief Retention Urinary Schizophrenia (HCC) Callus [place] Foot Wound Foot Open Subsequent Left Wound Lower Limb Multiple Open Subsequent Right Past Surgical History: Procedure Laterality Date CATARACT EXTRACTION W/ INTRAOCULAR LENS IMPLANT Bilateral PROSTATE SURGERY may 2023 Social History Tobacco Use Smoking status: Former Types: Cigarettes Smokeless tobacco: Never Vaping Use Vaping status: never used Substance Use Topics Alcohol use: Yes Alcohol/week: 16.0 standard drinks of alcohol Types: 12 Cans of beer, 4 Shots of liquor per week Drug use: Never Family History Problem Relation Name Age of Onset Depression Mother Mental illness Mother Stroke Father Skin cancer Father Alcohol abuse Sister Stroke Sister Mental illness Sister Smoker Sister No Known Problems Sister Alcohol abuse Brother Malcolm Prediabetes Brother Malcolm No Known Problems Brother Ed No Known Problems Brother Donny No Known Problems Daughter Acne Daughter history of OBJECTIVE Vitals: 08/16/24 1425 08/16/24 1432 BP: (!) 155/98 130/87 BP Location: Right arm Right arm Patient Position: Sitting Sitting Cuff Size: Regular Regular Pulse: 107 105 Resp: 16 Temp: 36 ??C TempSrc: Temporal SpO2: 97% Weight: 99.2 kg Height: 184 cm Body mass index is 29.29 kg/m??. PHYSICAL EXAMINATION General: Patient appears in no acute distress. ENT: TMs no erythema. Throat no erythema. Neck: No lymphadenopathy. No thyroid masses. Heart: Regular rate and rhythm. No murmurs. Lungs: Clear to auscultation. Abdomen: Soft and nontender to palpation. Feet: I did not examine his feet today he was just seen by his manager sustainability today and I did view the pictures of his feet that were taken previously. ASSESSMENT / PLAN #1 Preoperative Exam He is ASA class three for surgery. His blood pressure is slightly elevated today. He has a hemoglobin A1c of 9.2 which could contribute to some delayed healing. I stressed the importance of him continuing to do his best to manage his blood sugars to improve his hemoglobin A1c. Overall he says he isfeeling well. He is planning to follow up with endocrinology in about a month for further management and assistance with his diabetes care. He has been seen by multiple other providers for his feet. He will follow-up as scheduled for surgery tomorrow. Total time spent 30 minutes Bob Vela P.A.-C. STANT PROFESSOR IN FAMILY STUDIES documented in this encounter Plan of Treatment Not on file documented as of this encounter Visit Diagnoses Diagnosis Preoperative Exam- Primary documented in this encounter Additional Health Concerns Assessment Noted Time PHQ-9 Depression Total Score: 13 024 9:37 AM CDT documented as of this encounter Care Teams Flux Core Welder Relationship Specialty Start Date End Date Martin-Yudi Weaver APRN, C.N.P., D.N.P. [address] [phone] PCP - General Family Medicine 12/05/23 [facility] Ophthalmology 04/03/24 documented as of this encounter
--- OUTSIDE RECORDS SUMMARY | 2024-09-27 12:06 | XMS_ITS | Encounter Summary ---
Author Organization [facility] Address [address] [place] [address] Care Team Providers Care Trauma Nurse Name Role Phone Yudi Gunn APRN, C.N.P., D.N.P. P [facility] Care Provider Encounter Details Date Type Department Care Team (Late st Contact Info) Description 09/11/2024 7:50 AM RAIL FLAW DETECTOR OPERATOR - 09/11/2024 11:59 PM [facility] Hospital Encounter Department of Laboratory Medicine in [place], [place] [address] [place] [phone] Yudi Gunn APRN, C.N.P., D.N.P. [address] [place] [phone] 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) Discharge Disposition: Home or Self Care Social History Tobacco Use Types Packs/Day Years Used Date Smoking Tobacco: Former Cigarettes Smokeless Tobacco: Never Alcohol Use Standard Drinks/Week Comments Yes 16 (1 standard drink = 0.6 oz pu re alcohol) [facility] Utilities Answer Date Recorded In the past 12 months has [employer], gas, oil, or water [employer] threatened to shut off services in your [...] AM CDT Legal Sex Male 5:43 PM RAIL FLAW DETECTOR OPERATOR Gender Identity Male 04/03/2024 10:02 AM CDT Sexual Orientation Choose not to disclose 2023 10:02 AM CDT documented as of this encounter Medications at Time of Discharge Accu-Chek Guide test strips USE 1 STRIP ONCE DAILY Roshan Gray U-100 Insulin 100 unit/mL (3 mL) injection INJECT 30 UNITS UNDER THE SKIN BEFORE BEDTIME blood sugar diagnostic strips (Accu-Chek Guide test strips) USE TO TEST ONCE DAILY blood-glucose meter (Accu-Chek Guide Glucose Meter) misc See Admin Instructions. famotidine (Pepcid) 20 mg tablet Take 1 tablet (20 mg total) by mouth 2 (two) times a day. 180 tablet 3 07/18/2024 losartan (Cozaar) 50 mg tablet Take 1 tablet (50 mg total) by mouth daily. 90 tablet 3 04/03/2024 metFORMIN XR (Glucophage-XR) 500 mg 24 hr tablet TAKE 2 TABLETS BY MOUTH TWICE DAILY WITH MEALS 360 tablet 3 07/30/2024 pen needle, diabetic (BD Ultra-Fine Orig Pen Needle) 29 gauge x 1/2 needle FOR ADMINISTERING INSULIN AT HOME ziprasidone (GEODON) 60 mg capsule Take 1 capsule by mouth 2 (two) times a day with meals. Patient takes 80 mg twice a day documented as of this encounter Plan of Treatment Not on file documented as of this encounter Procedures Procedure Name Priority Date/Time Associated Diagnosis Comments HEMOGLOBIN A1C, B Routine 09/11/2024 8:0 3 AM RAIL FLAW DETECTOR OPERATOR 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) documented in this encounter Results * (ABNORMAL) Hemoglobin A1c (09/11/2024 8:03 AM RAIL FLAW DETECTOR OPERATOR) Hemoglobin A1c, B 9.5(H) 4.2 - 5.6 % 09/11/2024 3:31 PM RAIL FLAW DETECTOR OPERATOR OWAT Comment: Hemoglobin A1c values greater than or equal to 6.5 percent are diagnostic for diabetes mellitus. Diagnosis should be confirmed by repeat testing. In diabetic patients, HbA1c goals should be discussed with healthcare provider. Blood (Blood, Venous) 09/11/2024 8:03 AM RAIL FLAW DETECTOR OPERATOR 09/11/2024 8:12 AM RAIL FLAW DETECTOR OPERATOR us Yudi Gunn APRN, C.N.P., D.N.P. LA B BLOOD ADD-ON Final Result [facility] [address] [place] [address], [place] [address] [facility] [place] [address] [place] [address] documented in this encounter Visit Diagnoses Diagnosis 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) documented in this encounter Additional Health Concerns Assessment Noted Time PHQ-9 Depression Total Score: 13 024 9:37 AM CDT documented as of this encounter Care Teams Trauma Nurse Relationship Specialty Start Date End Date Martin-Yudi Weaver APRN, C.N.P., D.N.P. [address] [place] [phone] PCP - General Family Medicine 12/05/23 [facility] Ophthalmology 04/03/24 documented as of this encounter
--- OUTSIDE RECORDS SUMMARY | 2024-09-27 12:06 | XMS_ITS | Encounter Summary ---
Author Organization [facility] Address [address] [place] [address] Care Team Providers Care Oil Processing Technician Name Role Phone Yudi Gunn APRN, C.N.P., D.N.P. P [facility] Care Provider Reason for Visit * Reason Comments Diabetes * Outpatient (Routine) - Authorized Specialty Diagnoses / Procedures Referred By Zuleyma fang Referred To Contact Endocrinology Diagnoses Pain Shoulder Left Yudi Gunn APRN, C.N.P., D.N.P. [address] [place] [address] Phone: tel: fax: [facility] Referral ID Status Reason Start Date Expiration Date V isits Requested Visits Authorized [id number] Authorized 05/03/2024 11/02/2025 1 1 Encounter Details Date Type Department Care Team (Latest Contact Info) Description 09/11/2024 9:00 AM CLEANING STAFF SUPERVISOR Comprehensive Visit Department of Endocrinology in [place], [place] [address] [place] [phone] Lydia Cox, LEXIS, P.A.-C., P.A. [address], [place] [phone] Pain Shoulder Left Social History Tobacco Use Types Packs/Day Years Used Date Smoking Tobacco: Former Cigarettes Smokeless Tobacco: Never Alcohol Use Standard Drinks/Week Comments Yes 16 (1 standard drink = 0.6 oz pu re alcohol) [facility] Utilities Answer Date Recorded In the past 12 months has th e electric, gas, oil, or water company threatened to [...] AM CDT Legal Sex Male 5:43 PM CLEANING STAFF SUPERVISOR Gender Identity Male 04/03/2024 10:02 AM CDT Sexual Orientation Choose not to disclose 2023 10:02 AM CDT documented as of this encounter Plan of Treatment Not on file documented as of this encounter Visit Diagnoses Diagnosis Pain Shoulder Left documented in this encounter Additional Health Concerns Assessment Noted Time PHQ-9 Depression Total Score: 13 024 9:37 AM CDT documented as of this encounter Care Teams Oil Processing Technician Relationship Specialty Start Date End Date Yudi Gunn APRN, C.N.P., D.N.P. [address] [place] [phone] PCP - General Family Medicine 12/05/23 [facility] Ophthalmology 04/03/24 documented as of this encounter
--- OUTSIDE RECORDS SUMMARY | 2024-09-27 12:06 | XMS_ITS | Encounter Summary ---
Author Organization [facility] Address [address] [place] [address] Care Team Providers Care Capacitor Pack Press Operator Name Role Phone Yudi Gunn APRN, C.N.P., D.N.P. P [facility] Care Provider Reason for Referral * Outpatient (Routine) - Authorized Specialty Diagnoses / Procedures Referred By Zuleyma t Referred To Contact Family Medicine Yudi Gunn APRN, C.N.P., D.N.P. [address] [place] [address] Phone: tel: fax: [facility] Referral ID Status Reason Start Date Expiration Date V isits Requested Visits Authorized [id number] Authorized 09/12/2024 03/14/2026 1 1 ING MILL OPERATOR Encounter Details Date Type Department Care Team (Late st Contact Info) Description 09/12/2024 Orders Only Department of Family Medicine, [facility], in [place], [place] [address] [place] [address] Yudi Gunn APRN, C.N.P., D.N.P. [address] [place] [address] Social History Tobacco Use Types Packs/Day Years Used Date Smoking Tobacco: Former Cigarettes Smokeless Tobacco: Never Alcohol Use Standard Drinks/Week Comments Yes 16 (1 standard drink = 0.6 oz pu re alcohol) [facility] Utilities Answer Date Recorded In [...] AM CDT Legal Sex Male 5:43 PM FRAMING MILL OPERATOR Gender Identity Male 04/03/2024 10:02 AM CDT Sexual Orientation Choose not to disclose 2023 10:02 AM CDT documented as of this encounter Plan of Treatment Scheduled Referrals Name Type Priority Associated Diagnoses Orde r Schedule Family Medicine office visit (clinic) Outpatient Referral Routine Expected: 09/12/2024, Expires: 12/11/2025 documented as of this encounter Visit Diagnoses Not on filedocumented in this encounter Additional Health Concerns Assessment Noted Time PHQ-9 Depression Total Score: 13 024 9:37 AM CDT documented as of this encounter Care Teams Capacitor Pack Press Operator Relationship Specialty Start Date End Date Martin-Yudi Weaver APRN, C.N.P., D.N.P. [address] [address] PCP - General Family Medicine 12/05/23 [facility] Ophthalmology 04/03/24 documented as of this encounter
--- OUTSIDE RECORDS SUMMARY | 2024-09-27 12:06 | XMS_ITS | Encounter Summary ---
Author Organization [facility] Address [address] [place] [address] Care Team Providers Care Chemic Mangler Name Role Phone Yudi Gunn APRN, C.N.P., D.N.P. P [facility] Care Provider Encounter Details Date Type Department Care Team (Late st Contact Info) Description 09/21/2024 Clinical Communication Department of Family Medicine, [facility], in [place], [place] [address] [place] [phone] Yudi Gunn APRN, C.N.P., D.N.P. [address] [phone] Social History Tobacco Use Types Packs/Day Years Used Date Smoking Tobacco: Former Cigarettes Smokeless Tobacco: Never Alcohol Use Standard Drinks/Week Comments Yes 16 (1 standard drink = 0.6 oz pu re alcohol) [facility] Utilities Answer Date Recorded In the past 12 months has [facility] [employer], gas, oil, or water [employer] threatened to shut off services in your [...] AM CDT Legal Sex Male 5:43 PM DISCHARGE RN Gender Identity Male 04/03/2024 10:02 AM CDT Sexual Orientation Choose not to disclose 2023 10:02 AM CDT documented as of this encounter Miscellaneous Notes * Telephone Encounter - Eliana Watson LNataP.N. - 09/25/2024 1:07 PM DISCHARGE RN Unable to leave a voicemail message for patient to schedule with Yudi or to Call Patient Experience [phone]. HARGE RN documented in this encounter Plan of Treatment Not on file documented as of this encounter Visit Diagnoses Not on filedocumented in this encounter Additional Health Concerns Assessment Noted Time PHQ-9 Depression Total Score: 13 024 9:37 AM CDT documented as of this encounter Care Teams Chemic Mangler Relationship Specialty Start Date End Date Martin-Yudi Weaver APRN, C.N.P., D.N.P. [address] [place] [phone] PCP - General Family Medicine 12/05/23 [facility] Ophthalmology 04/03/24 documented as of this encounter
--- OUTSIDE RECORDS SUMMARY | 2024-09-27 12:06 | XMS_ITS | Referral Summary ---
Author Organization [facility] Address [address] [place] [address] Care Team Providers Care Side Door Worker Name Role Phone Yudi Gunn APRN, C.N.P., D.N.P. [facility] Care Provider Source Comments Patient records contain information from all sites at [facility]. For routine questions regarding patient records, call [phone] during business hours, M-F 8:00 AM - 5:00 PM Central Time. Record requests for emergency care only can be directed to [phone] at any time.[facility] Encounters Date Type Department Care Team Description 09/21/2024 Clinical Communication Department of Family Medicine, [facility], in [address] [phone] Yudi Gunn APRN C.N.P., D.N.P. 09/12/2024 Orders Only Department of Family Medicine, [facility], in [place], [place] [address] [place] [phone] Yudi Gunn APRN, C.N.P., D.N.P. 09/11/2024 7:50 AM CUT OFF TENDER [employer]ASS - 09/11/2024 11:59 PM CUT OFF T[employer]ER [employer] Hospital Encounter Department of Laboratory Medicine in [place], [place] [address] [place] [address] Miles-Weaver, Yudi M, BRIDGE WORKER APPRENTICE, C.N.P., D.N.P. 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) Discharge Disposition: Home or Self Care 09/11/2024 9:00 AM CUT OFF TENDER GLASS Comprehensive Visit Department of Endocrinology in [place], [place] [address] [place] [phone] Lydia Cox MPAS, PMarvinC., P.A. Pain Shoulder Left 08/16/2024 2:30 PM CUT OFF TENDER [employer] Office Visit Department of Family Medicine, [facility], in [place], [place] [address] [facility] [place] [address] Bob Vela P.A.-C. Preoperative Exam (Primary Dx) 08/07/2024 8:20 AM CUT OFF TENDER GLASS - 08/07/2024 11:59 PM C[employer] OFF T[employer]ER [employer] Hospital Encounter Department of Radiology in [place], [place] [address] [place] [phone] Julio Gomez M.D. Personal History Of Diabetic Foot Ulcer; Wound Lower Limb Multiple Open Subsequent Left; Wound Lower Limb Multiple Open Subsequent Right Discharge Disposition: Home or Self Care 08/06/2024 7:38 AM CUT OFF TENDER GLASS - 08/06/2024 11:59 PM C[employer] T[employer]ER [employer] Hospital Encounter Department of Vascular Medicine in [place], [place] [address] [place] [phone] Julio Chadwick M.D. 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 Personal History Of Diabetic Foot Ulcer; Stasis Ulcer Varicose Vein Right (HCC) Discharge Disposition: Home or Self Care 08/03/2024 1:20 PM CUT OFF TENDER [employer]ASS Ancillary Procedure Department of Vascular 08/03/2024 1:15 PM CUT OFF TENDER [employer]ASS Ancillary Procedure Department of Vascular 08/03/2024 12:05 PM CUT OFF TENDER [employer]ASS Ancillary Procedure Department of Vascular 08/03/2024 9:55 AM CUT OFF TENDER GLASS - 08/03/2024 11:59 PM C[employer] OFF T[employer]ER [employer] Hospital Encounter Department of Laboratory Medicine and Pathology, [place], [place] [address] [place] [phone] Julio Chadwick M.D. Stasis Ulcer Varicose Vein Right (HCC) Discharge Disposition: Home or Self Care 08/03/2024 9:55 AM CUT OFF TENDER GLASS - 08/03/2024 11:59 PM C[employer] OFF TENDER [employer]ASS Hospital Encounter Department of Laboratory Medicine and Pathology, [place], [place] [address] [place] [phone] Julio Chadwick M.D. Stasis Ulcer Varicose Vein Right (HCC) Discharge Disposition: Home or Self Care 08/03/2024 2:00 PM CUT OFF TENDER GLASS Comprehensive Visit Department of Vascular Medicine in [place], [place] [address] [place] [phone] Julio Gomez M.D. Wound Lower Limb Multiple Open Subsequent Right (Primary Dx); Personal History Of Diabetic Foot Ulcer; Stasis Ulcer Varicose Vein Right (HCC); Stasis Dermatitis Lower Extremity Bilateral; Wound Lower Limb Multiple Open Subsequent Left; Hypertension Essential Primary; Diabetes Mellitus Type 2 Neuropathy Autonomic ([facility]); Callus Anthon Foot; Wound Foot Open Subsequent Left; Posttraumatic Stress Disorder Brief; Schizophrenia ([facility]); Nicotine Dependence Cigarettes In Remission Discharge Disposition: Home or Self Care 08/03/2024 9:15 AM CUT OFF TENDER GLASS Comprehensive Visit Department of Vascular Medicine in [place], [place] [address] [place] [phone] Julio Chadwick M.D. 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 Stasis Ulcer Varicose Vein Right (HCC); Stasis Dermatitis Lower Extremity Bilateral; Personal History Of Diabetic Foot Ulcer; Diabetes Mellitus Type 2 Ulcer (HCC) Discharge Disposition: Home or Self Care 07/27/2024 Refill Department of [facility], [facility], in [address] [place] [address] ReddickYudi Chaudhry APRN C.N.P., D.N.P. Med Refill 07/13/2024 Refill Department of [facility], in [address] [phone] Yudi Gunn APRN C.N.P., D.N.P. Med Refill 07/13/2024 Refill Department of [facility], in [address] [place] [phone] Yudi Gunn APRN C.N.P., D.N.P. Med Refill 07/04/2024 Clinical Communication Department of [facility], in [address] [phone] Yudi Gunn APRN, C.N.P., D.N.P. PandaDoc Form ([employer] DM Shoes/Inserts) 07/03/2024 Clinical Communication Department of [facility], in [address] [phone] Yudi Gunn APRN, C.N.P., D.N.P. 07/03/2024 1:40 PM CDT Office Visit [facility] of [facility] in [address] [phone] Maria A Doss APRN, C.N.P. Callus Anthon Foot (Primary Dx); Diabetes Mellitus Type 2 Ulcer (HCC); Wound Foot Open Subsequent Left 06/28/2024 Clinical Communication Department of Family Medicine, [facility], in [place], [place] [address] [place] [address] Yudi Gunn APRN, C.N.P., D.N.P. 06/28/2024 8:00 AM CDT Office Visit Department of [facility], [facility], in [place], [place] [address] [place] [address] Yudi Gunn APRN, C.N.P., D.N.P. Diabetes Mellitus Type 2 Ulcer (HCC) (Primary Dx); Personal History Of Diabetic Foot Ulcer; Stasis Ulcer Varicose Vein Right (HCC); Stasis Dermatitis Lower Extremity Bilateral from Last 3 Months Allergies Active Allergy Reactions Criticality Noted Date Comments Levonorgestrel-Ethinyl Estrad Other (see comments) 09/01/2023 Medications ziprasidone (GEODON) 60 mg capsule Take 1 capsule by mouth 2 (two) times a day with meals. Patient takes 80 mg twice a day Active Accu-Chek Guide test strips USE 1 STRIP ONCE DAILY Active Basaglar KwikPen U-100 Insulin 100 unit/mL (3 mL) injection INJECT 30 UNITS UNDER THE SKIN BEFORE BEDTIME Active blood-glucose meter (Accu-Chek Guide Glucose Meter) [facility] See Admin Instructions. Active blood sugar diagnostic strips (Accu-Chek Guide test strips) USE TO TEST ONCE DAILY Active pen needle, diabetic (BD Ultra-Fine Orig Pen Needle) 29 gauge x 1/2 needle FOR ADMINISTERING INSULIN AT HOME Active losartan (Cozaar) 50 mg tablet Take 1 tablet (50 mg total) by mouth daily. 90 tablet 3 4 Active famotidine (Pepcid) 20 mg tablet Take 1 tablet (20 mg total) by mouth 2 (two) times a day. 180 tablet 3 4 Active metFORMIN XR (Glucophage-XR ) 500 mg 24 hr tablet TAKE 2 TABLETS BY MOUTH TWICE DAILY WITH MEALS 360 tablet 3 4 Active minocycline 100 mg capsule Take 1 capsule (100 mg total) by mouth 2 (two) times a day before morning and evening meals. 60 capsule 4 024 Active Problems Problem Noted Date Diagnosed Date Wound Lower Limb Multiple Open Subsequent Right 08/03/2024 Callus Anthon Foot 07/03/2024 Overview (07/03/2024): Plantar aspect of first metatarsal head. Large chronic open wound x 2 years from opened callus. Measures 4 x 4 cm with an open wound 2 x 2 x 0.3 0.4 cm undermining at 9:00 and 0.5 cm at 1:00. Wound edges are epiboled and very thick. Wound bed is pink. Assessment & Plan (07/03/2024 4:14 PM CDT): Wound was cleansed with Vashe and dried. Fibracol plus was tucked into the wound bed and areas of undermining. Sterile 4 x 4 was applied over the wound. A Mepilex border dressing was applied . A light gauze wrap was used to secure in place. He will leave the dressing in place and change tomorrow. Will follow-up with Dr. Thai goldberg for wound care. I talked to him about having the wound surgically debrided due to the epibole on the circumferential edges as well as the thickness of the edges and the depth of the wound. Wound Foot Open Subsequent Left 07/03/2024 Overview (07/03/2024): Pressure and shearing injury to the lateral 5 th metatarsal head. Assessment & Plan (07/03/2024 4:12 PM CDT): Wound measures 2.1 cm x 1. 3 cm and 1 x 2 cm adjacent. Wound bed superficial. Wound cleansed with Vashe and dried. Iodosorb and solo site in a 50 50 preparation was applied into the wound bed covered with sterile 2 x 2. Skin prep was applied to the periwound skin and allowed to dry. A border dressing was applied. He will change dressing tomorrow. He is scheduled to see Podiatry at [facility] on . 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 04/23/2011 Overview (12/30/2023): Major depressive disorder, recurrent episode, severe, specified as with psychotic behavior ([facility]) Overview: Major depressive disorder, recurrent episode, severe, specified as with psychotic behavior ([facility]) Posttraumatic Stress Disorder Brief 04/23/2011 Resolved Problems Problem Noted Date Diagnosed Date Resolved Date Non-Pressure Chronic Ulcer O f Other Part Of Right Foot With Unspecified Severity 03/17/202204/2024 Immunizations Name Administration Dates Next Due Influenza TIV (IM) 10/09/2012, 8,07/21/2004, 003 Influenza, Seasonal, Injectable 10/09/19 13,12/05/2007,07/21/2004, 003 PCV20 04/03/2024 PPSV23 10/09/2012,12/05/2007 RZV (SHINGRIX) 03/21/2022 SARS-COV-2 (COVID-19) - MODERNA(Discontinued) 11/11/2021,10/12/2021 SARS-COV-2 (COVID-19) - PFIZER(Discontinued)(5 years through 11 years) 10/14/2021 Tdap 03/21/2022,03/31/2007 influenza vaccine quad (FLUZONE/FLUARIX) (6 months and older)(PF) 06/16/2020,10/02/2019,09/13/2018, 014 Social History Tobacco Use Types Packs/Day Years Used Date Smoking Tobacco: Former Cigarettes Smokeless Tobacco: Never Tobacco Cessation:Counseling Given: Not Answered Alcohol Use Standard Drinks/Week Comments Yes 16 (1 standard drink = 0.6 oz pu re alcohol) [facility] Utilities Answer Date Recorded In the past 12 months has th [employer], oil, or water [email or web address] threatened to shut off services in your [...] AM CDT Legal Sex Male 5:43 PM CUT OFF TENDER GLASS Gender Identity Male 04/03/2024 10:02 AM CDT Sexual Orientation Choose not to disclose 2023 10:02 AM CDT Last Filed Vital Signs Vital Sign Reading Time Taken Comments Blood Pressure 130/87 08/16/2024 2:32 PM CUT OFF TENDER GLASS Pulse 105 08/16/2024 2:32 PM CUT OFF TENDER [employer]ASS Temperature 36 C (96.8 F) 08/16/2024 2:25 PM CUT OFF TENDER GLASS Respiratory Rate 16 08/16/2024 2:25 PM CUT OFF TENDER GLASS Oxygen Saturation 97% 08/16/2024 2:25 PM CUT OFF TENDER GLASS Inhaled Oxygen Concentration - - Weight 99.2 kg (218 lb 9.4 oz) 08/16/2024 2:25 P M CUT OFF TENDER GLASS Height 184 cm (6' 0.44) 08/16/2024 2:25 PM CUT OFF TENDER GLASS Body Mass Index 29.29 08/16/2024 2:25 PM CUT OFF TENDER GLASS Plan of Treatment Not on file Medical Devices Implanted Type Area Bag End Sewer Device Identifier Shelf Expiration Date Model / Serial / Lot Ocular Lens Ocular Lens Bilateral : Eye Procedures Procedure Name Priority Date/Time Associated Diagnosis Comments HEMOGLOBIN A1C, B Routine 09/11/2024 8:03 AM CUT OFF TENDER GLASS 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) MR FOOT RIGHT WITHOUT AND WITH IV CONTRAST RAD - Routine (most inpatients and all outpatients) 08/07/2024 10:12 AM CUT OFF TENDER GLASS Personal History Of Diabetic Foot Ulcer Wound Lower Limb Multiple Open Subsequent Right MR FOOT LEFT WITHOUT AND WITH IV CONTRAST RAD - Routine (most inpatients and all outpatients) 08/07/2024 10:12 AM CUT OFF TENDER GLASS Personal History Of Diabetic Foot Ulcer Wound Lower Limb Multiple Open Subsequent Left LOWER EXTREMITY ARTERIAL (SHOBHA) - TCPO2 (WOUND) Routine 08/06/2024 9:30 AM CUT OFF TENDER GLASS 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) VASCULAR IMAGE EXAM Routine 08/03/2024 1:20 PM CUT OFF TENDER GLASS VASCULAR IMAGE EXAM Routine 08/03/2024 1:15 PM CUT OFF TENDER [employer]ASS VASCULAR IMAGE EXAM Routine 08/03/2024 12:05 PM CUT OFF TENDER [employer]ASS DIPSTICK, U Routine 08/03/2024 10:19 AM CUT OFF TENDER [employer]ASS PH, U Routine 08/03/2024 10:19 AM CUT OFF TENDER [employer]ASS OSMOLALITY, U Routine 08/03/2024 10:19 AM CUT OFF TENDER [employer]ASS MICROSCOPIC AUTOMATED Routine 08/03/2024 10:19 AM CUT OFF TENDER GLASS URINALYSIS WITH MICROSCOPIC Routine 08/03/2024 10:19 AM CUT OFF TENDER GLASS Stasis Ulcer Varicose Vein Right (HCC) IMMUNOGLOBULINS (IGG, IGA, AND IGM), S Routine 08/03/2024 10:15 AM CUT OFF TENDER GLASS Stasis Ulcer Varicose Vein Right (HCC) RHEUMATOID FACTOR, S/P Routine 08/03/2024 10:15 AM CUT OFF TENDER GLASS Stasis Ulcer Varicose Vein Right (HCC) CRYOGLOBULIN, S Routine 08/03/2024 10:15 AM CUT OFF TENDER GLASS Stasis Ulcer Varicose Vein Right (HCC) COMPLEMENT C4, S Routine 08/03/2024 10:15 AM CUT OFF TENDER GLASS Stasis Ulcer Varicose Vein Right (HCC) COMPL C3, S Routine 08/03/2024 10:15 AM CUT OFF TENDER GLASS Stasis Ulcer Varicose Vein Right (HCC) AB TO EXTRACTABLE NUCLEAR AG EVAL, S Routine 08/03/2024 10:15 AM CUT OFF TENDER GLASS Stasis Ulcer Varicose Vein Right (HCC) ANTINUCLEAR ABS (KORTNEY), S Routine 08/03/2024 10:15 AM CUT OFF TENDER GLASS Stasis Ulcer Varicose Vein Right (HCC) CREATININE WITH EGFR, S/P Routine 08/03/2024 10:15 AM CUT OFF TENDER GLASS Stasis Ulcer Varicose Vein Right (HCC) C-REACTIVE PROTEIN (CRP), S/P Routine 08/03/2024 10:15 AM CUT OFF TENDER GLASS Stasis Ulcer Varicose Vein Right (HCC) SEDIMENTATION RATE, B Routine 08/03/2024 10:15 AM CUT OFF TENDER GLASS Stasis Ulcer Varicose Vein Right (HCC) CBC WITH DIFFERENTIAL, B Routine 08/03/2024 10:15 AM CUT OFF TENDER GLASS Stasis Ulcer Varicose Vein Right (HCC) HCV AB W/REFLEX TO HCV PCR, S Routine 08/03/2024 10:15 AM CUT OFF TENDER GLASS Stasis Ulcer Varicose Vein Right (HCC) HBC TOTAL AB, SERUM Routine 08/03/2024 10:15 AM CUT OFF TENDER GLASS Stasis Ulcer Varicose Vein Right (HCC) HBS ANTIBODY, SERUM Routine 08/03/2024 10:15 AM CUT OFF TENDER GLASS Stasis Ulcer Varicose Vein Right (HCC) HEPATITIS B SURFACE ANTIGEN Routine 08/03/2024 10:15 AM CUT OFF TENDER GLASS Stasis Ulcer Varicose Vein Right (HCC) HEMOGLOBIN A1C, B Routine 07/31/2024 11:09 AM CUT OFF TENDER GLASS Diabetes Mellitus Type 2 Ulcer (HCC) SEDIMENTATION RATE, B Routine 07/31/2024 11:09 AM CUT OFF TENDER GLASS Personal History Of Diabetic Foot Ulcer Stasis Ulcer Varicose Vein Right (HCC) Stasis Dermatitis Lower Extremity Bilateral ANCA VASCULITIS PANEL, S Routine 07/31/2024 11:09 AM CUT OFF TENDER GLASS Stasis Ulcer Varicose Vein Right (HCC) Stasis Dermatitis Lower Extremity Bilateral URINALYSIS WITH MICROSCOPIC IF INDICATED, U Routine 07/31/2024 11:07 AM CUT OFF TENDER GLASS Personal History Of Diabetic Foot Ulcer Stasis Ulcer Varicose Vein Right (HCC) Stasis Dermatitis Lower Extremity Bilateral WOUND CARE Routine 06/28/2024 8:00 AM CDT Diabetes Mellitus Type 2 Ulcer (HCC) Personal History Of Diabetic Foot Ulcer Stasis Dermatitis Lower Extremity Bilateral LIPID PANEL, S Routine 04/03/2024 12:09 PM CDT Health Maintenance Examination Adult BASIC METABOLIC PANEL, S/P Routine 04/03/2024 12:09 PM CDT Health Maintenance Examination Adult from Last 3 Months or Most Recently Relevant to Health Maintenance Results * (ABNORMAL) Hemoglobin A1c (09/11/2024 8:03 AM CUT OFF TENDER GLASS) Only the most recent of2 resultswithin the time period is included. Hemoglobin A1c, B 9.5(H) 4.2 - 5.6 % 09/11/2024 3:31 PM CUT OFF TENDER GLASS OWAT Comment: Hemoglobin A1c values greater than or equal to 6.5 percent are diagnostic for diabetes mellitus. Diagnosis should be confirmed by repeat testing. In diabetic patients, HbA1c goals should be discussed with healthcare provider. Blood (Blood, Venous) 09/11/2024 8:03 AM CUT OFF TENDER GLASS 09/11/2024 8:12 AM CUT OFF TENDER GLASS us Yudi Gunn APRN, C.N.P., D.N.P. AMANDA Brannon BLOOD ADD-ON Final Result [facility] [address] [place] [address], [place] OW[facility] in [place] [address] [place] [address] * MR Foot Left without and with IV Contrast (08/07/2024 10:12 AM CUT OFF TENDER GLASS) Anatomical Region Laterality Modality Lower Extremity, Foot, Muscu loskeletal RST LOS, Musculoskeletal ARZ LOS, Muskuloskeletal FLA LOS Left Magne tic Resonance Impressions 08/07/2024 10:16 AM CUT OFF TENDER GLASS 1. Mild skin thickening and subcutaneous edema involving the lateral forefoot at the level of the fifth metatarsal head. Within the limitations of motion artifact, no evidence of marrow signal abnormality to suggest osteomyelitis. --Similarly, no evidence of an organized or drainable soft tissue fluid collection. 2. Mild degenerative changes in the midfoot and forefoot as above. 3. Intrinsic muscle bulk and signal abnormalities typical for changes of diabetic microvascular insufficiency and subacute denervation. Narrative 08/07/2024 10:16 AM CUT OFF TENDER GLASS EXAM: MR FOOT LEFT WITHOUT AND WITH IV CONTRAST COMPARISON:Images are interpreted without comparison. FINDINGS: --Exam detail is mildly degraded by the presence of motion artifact. Bone marrow: There is no T1 hypointense geographic marrow replacing abnormality within the imaged field of view to suggest osteomyelitis. Similarly, there is no evidence of fracture, stress fracture, or bone marrow stress reaction. Joint spaces: There are mild changes of chondrosis present at the first and third tarsometatarsal articulations. Additional mild to moderate chondrosis involving the first MTP and IP joints of the great toe as well as the MTP joint of the small toe. No evidence of joint effusion/synovitis. Intrinsic muscle bulk is diffusely abnormal, characterized by atrophy with superimposed intramuscular edema signal. No evidence of an organized or drainable intramuscular fluid collection. Thickening of the plantar fascial aponeurosis, remaining intact. Soft tissue swelling and skin thickening along the lateral aspect of the fifth metatarsal head. No discrete fluid collection in this location is demonstrated. Procedure Note Luis Anne M.D. - 08/07/2024 EXAM: MR FOOT LEFT WITHOUT AND WITH IV CONTRAST COMPARISON:Images are interpreted without comparison. FINDINGS: --Exam detail is mildly degraded by the presence of motion artifact. Bone marrow: There is no T1 hypointense geographic marrow replacingabnormality within the imaged field of view to suggest osteomyelitis.Similarly, there is no evidence of fracture, stress fracture, or bonemarrow stress reaction. Joint spaces: There are mild changes of chondrosis present at the firstand third tarsometatarsal articulations. Additional mild to moderatechondrosis involving the first MTP and IP joints of the great toe as wellas the MTP joint of the small toe. No evidence of joint effusion/synovitis. Intrinsic muscle bulk is diffusely abnormal, characterized by atrophy withsuperimposed intramuscular edema signal. No evidence of an organized ordrainable intramuscular fluid collection. Thickening of the plantarfascial aponeurosis, remaining intact. Soft tissue swelling and skin thickening along the lateral aspect of thefifth metatarsal head. No discrete fluid collection in this location isdemonstrated. IMPRESSION: 1. Mild skin thickening and subcutaneous edema involving the lateralforefoot at the level of the fifth metatarsal head. Within the limitationsof motion artifact, no evidence of marrow signal abnormality to suggestosteomyelitis. --Similarly, no evidence of an organized or drainable soft tissue fluidcollection. 2. Mild degenerative changes in the midfoot and forefoot as above. 3. Intrinsic muscle bulk and signal abnormalities typical for changes ofdiabetic microvascular insufficiency and subacute denervation. us Julio Gomez M.D. IMG MRI PROCEDURES Final Re sult * MR Foot Right without and with IV Contrast (08/07/2024 10:12 AM CUT OFF TENDER GLASS) Anatomical Region Laterality Modality Lower Extremity, Foot, Muscu loskeletal RST LOS, Musculoskeletal ARZ LOS, Muskuloskeletal FLA LOS Right Jase tic Resonance Impressions 08/07/2024 10:28 AM CUT OFF TENDER GLASS 1. Soft tissue ulcer along the medial plantar forefoot at the level of the first MTP articulation. No evidence of osteomyelitis. 2. Skin thickening and enhancement at the site of ulceration suggesting changes of cellulitis. No evidence for an organized or drainable subcutaneous or intramuscular fluid collection. 3. Degenerative changes of greatest conspicuity at the first MTP/MTS articulations. 4. Abnormalities of intrinsic muscle bulk and signal typical for changes related to diabetic microvascular insufficiency and subacute denervation. Narrative 08/07/2024 10:28 AM CUT OFF TENDER GLASS EXAM: MR FOOT RIGHT WITHOUT AND WITH IV CONTRAST COMPARISON:Images are interpreted without comparison. FINDINGS: Exam detail is mildly degraded by the presence of motion artifact. Bone marrow: Focal area of soft tissue ulceration is seen along the plantar undersurface of the first ray at the level of the first MTP articulation. Subjacent to this finding, no geographic T1 hypointense marrow replacing process is demonstrated. Similarly, on postcontrast imaging, no evidence of abnormal intramedullary enhancement. There is no fracture, stress fracture, or bone marrow stress reaction. Joint spaces: The naviculocuneiform, intercuneiform, and tarsometatarsal joint spaces appear preserved as visualized. Multilevel mild-moderate changes of chondrosis at the first MTP/MTS articulation with trace joint effusion/synovitis. Remaining MTP and IP articulations appear largely within normal limits, with additional chondral loss at the IP joint of the great toe. Diffusely abnormal intrinsic muscle bulk and signal with fatty atrophy and superimposed intramuscular edema signal. No evidence of an organized or drainable intramuscular fluid collection. Plantar fascial aponeurosis remains intact. Skin thickening and enhancement noted in the region of soft tissue ulceration. No evidence of an organized or drainable subcutaneous fluid collection. Procedure Note Luis Anne M.D. - 08/07/2024 EXAM: MR FOOT RIGHT WITHOUT AND WITH IV CONTRAST COMPARISON:Images are interpreted without comparison. FINDINGS: Exam detail is mildly degraded by the presence of motion artifact. Bone marrow: Focal area of soft tissue ulceration is seen along theplantar undersurface of the first ray at the level of the first MTParticulation. Subjacent to this finding, no geographic T1 hypointensemarrow replacing process is demonstrated. Similarly, on postcontrast imaging, no evidence of abnormal intramedullaryenhancement. There is no fracture, stress fracture, or bone marrow stressreaction. Joint spaces: The naviculocuneiform, intercuneiform, and tarsometatarsaljoint spaces appear preserved as visualized. Multilevel mild-moderatechanges of chondrosis at the first MTP/MTS articulation with trace jointeffusion/synovitis. Remaining MTP and IP articulations appear largely within normal limits, with additionalchondral loss at the IP joint of the great toe. Diffusely abnormal intrinsic muscle bulk and signal with fatty atrophy andsuperimposed intramuscular edema signal. No evidence of an organized or drainable intramuscular fluid collection. Plantar fascial aponeurosis remains intact. Skin thickening and enhancement noted in the region of soft tissueulceration. No evidence of an organized or drainable subcutaneous fluidcollection. IMPRESSION: 1. Soft tissue ulcer along the medial plantar forefoot at the level of thefirst MTP articulation. No evidence of osteomyelitis. 2. Skin thickening and enhancement at the site of ulceration suggestingchanges of cellulitis. No evidence for an organized or drainablesubcutaneous or intramuscular fluid collection. 3. Degenerative changes of greatest conspicuity at the first MTP/MTSarticulations. 4. Abnormalities of intrinsic muscle bulk and signal typical for changesrelated to diabetic microvascular insufficiency and subacutedenervation. us Julio Gomez M.D. IMRosaline MRI PROCEDURES Final Re sult * Lower Extremity Arterial (SHOBHA) - TCPO2 (Wound) (08/06/2024 9:30 AM CUT OFF TENDER GLASS) Anatomical Region Laterality Modality Other 08/06/2024 7:48 AM C[employer] T[employer] [facility] Narrative 08/06/2024 10:07 AM C[employer] OFF T[employer]ER [facility]ASS Right: Doppler Waveforms: Normal at all levels evaluated. Resting Index: SHOBHA (PT)- 1.11 SHOBHA (DP)- 1.06 TBI- 0.94 TcPO2: Values as noted. Left: Doppler Waveforms: Normal at all levels evaluated. Resting Index: SHOBHA (PT)- 1.05 SHOBHA (DP)- 1.11 TBI- 0.93 TcPO2: Values as noted. Conclusions: Right: Normal ankle brachial indices and Doppler signals at rest. TCPO2 is normal at the proximal foot; mildly reduced at the distal foot. Left: Normal ankle brachial indices and Doppler signals at rest. TCPO2 is moderately reduced at the proximal foot; normal at the distal foot. Small vessel disease may be present. No prior studies available for comparison. Procedure Note Jose Hinton M.D. - 08/06/2024 Right: Doppler Waveforms: Normal at all levels evaluated. RestingIndex: SHOBHA (PT)- 1.11 SHOBHA (DP)- 1.06 TBI- 0.94 TcPO2:Values as noted. Left: Doppler Waveforms: Normal at all levels evaluated. RestingIndex: SHOBHA (PT)- 1.05 SHOBHA (DP)- 1.11 TBI- 0.93 TcPO2:Values as noted. Conclusions: Right: Normal ankle brachial indices and Doppler signals atrest. TCPO2 is normal at the proximal foot; mildly reduced at the distalfoot. Left: Normal ankle brachial indices and Doppler signals at rest.TCPO2 is moderately reduced at the proximal foot; normal at the distal foot. Small vessel disease may bepresent. No prior studies available for comparison. Julio Chadwick M.D. CV VASCULAR PROCEDURES Fin al Result * Foot, Right-Vascular Image Exam (08/03/2024 1:20 PM CUT OFF TENDER GLASS) Only the most recent of3 resultswithin the time period is included. 08/03/2024 1:12 PM CUT OFF TENDER GLASS Narrative IIAZ - 08/03/2024 3:15 PM CUT OFF TENDER GLASS This order has been created and auto-finalized to support the import of images acquired without order. The clinical documentation to support these images can be found on the encounter that produced images. us Provider Not In System IMG NON RAD IMAGING PROCE DURSHAMAR Final Result MS NA * (ABNORMAL) Dipstick, Urine (08/03/2024 10:19 AM CUT OFF TENDER GLASS) Hemoglobin, QL, U Negative Negative 08/03/2024 11:19 AM CUT OFF TENDER GLASS DTL Leukocyte Esterase, U Negative Negative 08/03/2024 11:19 AM C[employer] OFF TENDER [employer] DTL Nitrite, U Negative Negative 08/03/2024 11:19 AM C[employer] OFF TENDER [employer]ASS DTL Ketone, U 5(A) Negative mg/dL 08/03/2024 11:19 AM CUT OFF TENDER GLASS DTL Glucose, U 300(A) Negative mg/dL 08/03/2024 11:19 AM C[employer] OFF TENDER [employer] DTL Urine 08/03/2024 10:1 9 AM C[employer] 08/03/2024 10:52 AM C[employer] OFF TENDER [employer]ASS Julio Chadwick M.D. LAB URINE ORDERABLES Final Result Performing Organization Address [facility] de Phone Number [facility] [address] [place] [address], [place] D[facility] [address] [place] [address] * Microscopic Automated (08/03/2024 10:19 AM CUT OFF TENDER GLASS) Pathologist [facility] Microscopy Normal 08/03/2024 11:19 AM C[employer] OFF TENDER [employer] DTL RBC <3 <3 /hpf 08/03/2024 11:19 AM C[employer] OFF TENDER [employer] DTL WBC None Seen /hpf 08/03/2024 11:19 AM C[employer] OFF TEND[employer] DTL Comment: ----REFERENCE VALUE---- <4 (Males) <11 (Females) Casts, Hyaline 1-3 /lpf 08/03/2024 11:19 AM C[employer] TEND[employer] DTL Urine 08/03/2024 10:1 9 AM C[employer] 08/03/2024 10:52 AM C[employer] us Julio Chadwick M.D. LAB URINE ORDERABLES Final Result Performing Organization Address City/[facility] Co de Phone Number [facility] [address] [place] [address], [place] D[facility] [address] [place] [address] * pH, Urine (08/03/2024 10:19 AM CUT OFF TENDER GLASS) pH, U 5.5 4.5 - 8.0 08/03/2024 11: 52 AM C[employer] TENDER [employer] DTL Urine 08/03/2024 10:1 9 AM C[employer] 08/03/2024 10:52 AM C[employer]END[employer]ASS Julio Chadwick M.D. LAB URINE ORDERABLES Final Result Performing Organization Address City/[facility] Co de Phone Number [facility] [address] [place] [address], [facility] [address] [place] [address] * Osmolality, Urine (08/03/2024 10:19 AM CUT OFF TENDER GLASS) Pathologist [facility] Osmolality, U 547 150 - 1150 mOsm/kg 08/03/2024 11:52 AM C[employer] DT Urine 08/03/2024 10:1 9 AM C[employer] 08/03/2024 10:52 AM C[employer] Julio Chadwick M.D. LAB URINE ORDERABLES Final Result Performing Organization Address [facility] de Phone Number [facility] [address] [place] [address], [facility] [address] [place] [address] * Urinalysis, with Microscopic: Urine, Voided (08/03/2024 10:19 AM CUT OFF TENDER GLASS) Source Urine, Urine, Voided 08/03/2024 10:51 AM C[employer] OFF TENDER GL[employer] DTL Color, U Yellow 08/03/2024 10:52 AM C[employer] OFF TENDER [employer] DTL Clarity, U Clear 08/03/2024 10:52 AM C[employer]END[employer] DTL Protein, U 8 <26 mg/dL 08/03/2024 11:31 AM C[employer] OFF TENDER [employer] DTL Protein/Osmola lity 0.15 <0.42 ratio 08/03/2024 11:52 AM C[employer] T[employer] DTL Predicted 24 HR Protein, U 151 <229 mg/24 h 08/03/2024 11:52 AM CUT OFF TENDER [employer] DTL Predicted Range 48-475 mg/24 h 08/03/2024 11:52 AM C[employer] OFF TENDER [employer] DTL Urine (Urine, Voided) 08/03/2024 10:19 AM C[employer]ER [employer]ASS 08/03/2024 10:51 AM C[employer] OFF TENDER [employer]ASS Julio Chadwick M.D. LAB URINE ORDERABLES Final Result Performing Organization Address [facility] Co de Phone Number [facility] [address] [place] [address], [place] D[facility] [address] [place] [address] * Antibody to Extractable Nuclear Antigen Evaluation (08/03/2024 10:15 AM CUT OFF TENDER GLASS) SS-A/Ro Ab, IgG, S <0.2 <1.0 (Negative) U 08/03/2024 4:06 PM CUT OFF TENDER [employer]ASS SDSC SS-B/La Ab, IgG, S <0.2 <1.0 (Negative) U 08/03/2024 4:06 PM CUT OFF TENDER [employer] SDSC Sm Ab, IgG, S <0.2 <1.0 (Negative) U 08/03/2024 4:06 PM CUT OFF TENDER [employer]ASS SDSC SHAREPOINT ANALYST Ab, IgG, S 0.4 <1.0 (Negative) U 08/03/2024 4:06 PM CUT OFF TENDER GLASS SDSC Scl 70 Ab, IgG, S <0.2 <1.0 (Negative) U 08/03/2024 4:06 PM CUT OFF TENDER GLASS SDSC Shante 1 Ab, IgG, S <0.2 <1.0 (Negative) U 08/03/2024 4:06 PM CUT OFF TENDER [employer] SDSC Blood (Blood, Venous) 08/03/2024 10:15 AM C[employer] 08/03/2024 2:02 PM C[employer] OFF TENDER [employer]ASS Julio Chadwick M.D. LAB BLOOD ADD-ON Final Res ult [facility] [address] [place] [address] [facility] [address] [place] [address] * HCV Ab w/Reflex to HCV PCR, Serum (08/03/2024 10:15 AM CUT OFF TENDER GLASS) Pathologist [facility] HCV Ab, S Negative Negative 08/03/2024 3:20 PM CUT OFF TENDER [employer]ASS [facility] Comment: Consumption of high-dose biotin supplement within 12 hours of blood collection for this test can cause false-negative results. Blood (Blood, Venous) 08/03/2024 10:15 AM C[employer] 08/03/2024 2:01 PM CUT OFF TENDER [employer]ASS Juloi Chadwick M.D. LAB MICROBIOLOGY - BLOOD O RDERABLES Final Result Performing Organization Address City/[facility]/ZIP Co de Phone Number [facility] [address] [place] [address] [facility] [address] [place] [address] * Cryoglobulin (08/03/2024 10:15 AM CUT OFF TENDER GLASS) Pathologist [facility] Cryoglobulin , S Negative. This test is negative at 24 hours. All samples are held and reviewed again at 7 days. If delayed precipitation occurs after 7 days, Immunofixation will be performed and an additional report will follow. Negative %ppt 08/07/2024 10:33 AM C[employer] OFF TENDER [employer] Blood (Blood, Venous) 08/03/2024 10:15 AM C[employer] 08/03/2024 1:58 PM CUT OFF TENDER [employer]ASS Julio Chadwick M.D. LAB BLOOD NON ADD-ON Final Result [facility] [address] [place] [address] [facility] [address] [place] [address] [place] [address] * HBc Total Ab, Serum (08/03/2024 10:15 AM CUT OFF TENDER GLASS) Pathologist [facility] HBc Total Ab, S Negative Negative 08/03/2024 3:26 PM C[employer] OFF TENDER [employer]ASS [facility] Blood (Blood, Venous) 08/03/2024 10:15 AM C[employer] OFF TENDER [employer]ASS 08/03/2024 2:01 PM C[employer] OFF TENDER GLASS Julio Chadwick M.D. LAB MICROBIOLOGY - BLOOD O RDERABLES Final Result Performing Organization Address City/[facility] Co de Phone Number [facility] [address] [place] [address] [facility] [address] [place] [address] * HBs Antibody, Serum (08/03/2024 10:15 AM CUT OFF TENDER GLASS) HBs Antibody, S Negative 3:26 PM CUT OFF TENDER GLASS [facility] Comment: Patient is NOT immune to HBV infection. Consumption of high-dose biotin supplement within 12 hours of blood collection for this test can cause false-negative results. ----REFERENCE VALUE---- Unvaccinated: Negative Vaccinated: Positive HBs Antibody, Quantitative, S <3.5 mIU/mL 08/03/2024 3:26 PM C[employer] OFF [employer]ENDER [employer] Comment: ----REFERENCE VALUE---- Unvaccinated: <8.5 mIU/mL Vaccinated: >=11.5 mIU/mL Blood (Blood, Venous) 08/03/2024 10:15 AM C[employer] T[employer]ER [employer] 08/03/2024 2:01 PM CUT OFF TENDER [employer]ASS Julio Chadwick M.D. LAB MICROBIOLOGY - BLOOD O RDERABLES Final Result Performing Organization Address [facility] Co de Phone Number [facility] [address] [place] [address] [facility] [address] [place] [address] * Hepatitis B Surface Antigen (08/03/2024 10:15 AM CUT OFF TENDER GLASS) HBs Antigen, S Negative Negative 08/03/2024 3:26 PM C[employer] OFF TENDER [employer] Blood (Blood, Venous) 08/03/2024 10:15 AM C[employer] OFF TENDER [employer] 08/03/2024 2:01 PM CUT OFF TENDER [employer]ASS Julio Chadwick M.D. LAB MICROBIOLOGY - BLOOD O RDERABLES Final Result [facility] [address] [place] [address] [facility] [address] [place] [address] * Sedimentation Rate (08/03/2024 10:15 AM CUT OFF TENDER GLASS) Only the most recent of2 resultswithin the time period is included. Pathologist [facility] Sedimentation Rate, B 5 2 - 20 mm/h 08/03/2024 11:37 AM CUT OFF TENDER GLASS DTL Blood (Blood, Venous) 08/03/2024 10:15 AM C[employer] TENDER [employer]ASS 08/03/2024 10:39 AM C[employer] OFF TENDER [employer] us Julio Chadwick M.D. LAB BLOOD ADD-ON Final Res ult [facility] [address] [place] [address], [facility] [address] [place] [address] * CBC with Differential, Blood (08/03/2024 10:15 AM CUT OFF TENDER GLASS) [facility] Hemoglobin 13.5 13.2 - 16.6 g/dL 08/03/2024 10:52 AM CUT OFF TENDER GLASS DTL Hematocrit 42.2 38.3 - 48.6 % 08/03/2024 10:52 AM CUT OFF TENDER GLASS DTL Erythrocytes 4.90 4.35 - 5.65 x10(12)/L 08/03/2024 10:52 AM CUT OFF TENDER [employer]ASS DTL MCV 86.1 78.2 - 97.9 fL 08/03/2024 10:52 AM CUT OFF TENDER [employer]ASS DTL RBC Distrib Width 13.2 11.8 - 14.5 % 08/03/2024 10:52 AM CUT OFF TENDER [employer]ASS DTL Platelet Count 194 135 - 317 x10(9)/L 08/03/2024 10:52 AM CUT OFF TENDER GLASS DTL Leukocytes 6.9 3.4 - 9.6 x10(9)/L 08/03/2024 10:52 AM CUT OFF TENDER [employer] DTL Neutrophils 4.17 1.56 - 6.45 x10(9)/L 08/03/2024 10:52 AM CUT OFF TENDER [employer]ASS [facility] Lymphocytes 1.65 0.95 - 3.07 x10(9)/L 08/03/2024 10:52 AM CUT OFF TENDER GLASS DTL Monocytes 0.71 0.26 - 0.81 x10(9)/L 08/03/2024 10:52 AM CUT OFF TENDER GLASS DTL Eosinophils 0.34 0.03 - 0.48 x10(9)/L 08/03/2024 10:52 AM CUT OFF TENDER [employer]ASS DTL Basophils 0.06 0.01 - 0.08 x10(9)/L 08/03/2024 10:52 AM CUT OFF TENDER GLASS DTL Blood (Blood, Venous) 08/03/2024 10:15 AM C[employer] OFF TENDER [employer]ASS 08/03/2024 10:39 AM CUT OFF TENDER [employer]ASS Julio Chadwick M.D. LAB BLOOD ADD-ON Final Res ult [facility] [address] [place] [address], [place] D[facility] [address] [place] [address] [facility] [address] [place] [address] * Rheumatoid Factor (08/03/2024 10:15 AM CUT OFF TENDER GLASS) Pathologist [facility] Rheumatoid Factor, S <15 <15 IU/mL 08/03/2024 3:06 PM CUT OFF TENDER [employer] Blood (Blood, Venous) 08/03/2024 10:15 AM C[employer] OFF TENDER [employer]ASS 08/03/2024 2:36 PM CUT OFF TENDER GLASS Julio Chadwick M.D. LAB BLOOD ADD-ON Final Res ult [facility] [address] [place] [address] [facility] [address] [place] [address] * Immunoglobulins (IgG, IgA, and IgM) (08/03/2024 10:15 AM CUT OFF TENDER GLASS) Immunoglobulin A (IgA), S 212 61 - 356 mg/dL 08/03/2024 4:00 PM C[employer] Immunoglobulin M (IgM), S 55 37 - 286 mg/dL 08/03/2024 4:00 PM C[employer] OFF TENDER [employer] Immunoglobulin G (IgG), S 1460 767 - 1590 mg/dL 08/03/2024 4:00 PM CUT OFF TENDER [employer]ASS [facility] Blood (Blood, Venous) 08/03/2024 10:15 AM C[employer] OFF TENDER [employer]ASS 08/03/2024 1:58 PM CUT OFF TENDER [employer]ASS us Julio Chadwick M.D. LAB BLOOD ADD-ON Final Res ult [facility] [address] [place] [address] [facility] [address] [place] [address] * Complement C3 (08/03/2024 10:15 AM CUT OFF TENDER GLASS) Complement C3, S 118 75 - 175 mg/dL 08/03/2024 4:13 PM CUT OFF TENDER [employer] Blood (Blood, Venous) 08/03/2024 10:15 AM C[employer] OFF TENDER [employer]ASS 08/03/2024 1:58 PM CUT OFF TENDER [employer]ASS us Julio Chadwick M.D. LAB BLOOD ADD-ON Final Res ult Performing Organization Address City/[facility]/ZIP Co de Phone Number [facility] [address] [place] [place] [address] [facility] [address] [place] [address] * Complement C4 (08/03/2024 10:15 AM CUT OFF TENDER GLASS) Complement C4, S 23 14 - 40 mg/dL 08/03/2024 4:12 PM CUT OFF TENDER [employer] [facility] Blood (Blood, Venous) 08/03/2024 10:15 AM C[employer] OFF TENDER [employer]ASS 08/03/2024 1:58 PM CUT OFF TENDER [employer]ASS us Julio Chadwick M.D. LAB BLOOD ADD-ON Final Res ult [facility] [address] [place] [address] [facility] [address] [place] [address] * CRP (C-Reactive Protein) (08/03/2024 10:15 AM CUT OFF TENDER GLASS) Pathologist [facility] C-Reactive Protein (CRP), S <3.0 <5.0 mg/L 08/03/2024 11:09 AM CUT OFF TENDER GLASS DT Blood (Blood, Venous) 08/03/2024 10:15 AM C[employer] OFF TENDER [employer]ASS 08/03/2024 10:52 AM CUT OFF TENDER GLASS Julio Chadwick M.D. LAB BLOOD ADD-ON Final Res ult Performing Organization Address City/[facility]/ZIP Co de Phone Number [facility] [address] [place] [address], [facility] [address] [place] [address] * KORTNEY (Antinuclear Antibodies) (08/03/2024 10:15 AM CUT OFF TENDER GLASS) Pathologist [facility] Antinuclear Ab, S 0.3 <=1.0 (Negative) U 08/03/2024 6:04 PM CUT OFF TENDER [employer]ASS [facility] Comment: ----ADDITIONAL INFORMATION---- Method: Enzyme-linked immunoassay using HEp-2 nuclear extract supplemented with purified antigens. Blood (Blood, Venous) 08/03/2024 10:15 AM C[employer]ENDER [employer]ASS 08/03/2024 2:02 PM CUT OFF TENDER [employer]ASS Julio Chadwick M.D. LAB BLOOD ADD-ON Final Res ult [facility] [address] [place] [address] [facility] [address] [place] [address] * Creatinine with Estimated GFR (08/03/2024 10:15 AM CUT OFF TENDER GLASS) [facility] Creatinine 0.88 0.74 - 1.35 mg/dL 08/03/2024 11:09 AM CUT OFF TENDER GLASS DT Estimated GFR (eGFR) >90 >=60 mL/min/BSA 08/03/2024 11:09 AM CUT OFF TENDER GLASS DTL Comment: Estimated GFR calculated using the 2020 CKD_EPI creatinine equation. Blood (Blood, Venous) 08/03/2024 10:15 AM C[employer] OFF [employer]ENDER [employer]ASS 08/03/2024 10:52 AM CUT OFF TENDER GLASS Julio Chadwick M.D. LAB BLOOD ADD-ON Final Res ult Performing Organization Address [facility] Co de Phone Number [facility] [address] [place] [address], [facility] [address] [place] [address] * ANCA (Antineutrophil Cytoplasmic Antibodies) Vasculitis Panel (07/31/2024 11:09 AM CUT OFF TENDER GLASS) Pathologist [facility] Myeloperoxidase Ab, S <0.2 <0.4 (Negative ) U 08/01/2024 9:06 AM C[employer] OFF TENDER [place] [facility] Proteinase 3 Ab (PR3), S <0.2 <0.4 (Negative ) U 08/01/2024 9:06 AM CUT OFF TENDER GLASS [facility] Blood (Blood, Venous) 07/31/2024 11:09 AM C[employer] OFF TENDER [employer]ASS 08/01/2024 6:41 AM CUT OFF TENDER GLASS Yudi Gunn APRN, C.N.P., D.N.P. LA B BLOOD ADD-ON Final Result Performing Organization Address [facility] Co de Phone Number [facility] [address] [place] [address] [place] [address] * (ABNORMAL) Urinalysis with Microscopic if Indicated (07/31/2024 11:07 AM CUT OFF TENDER GLASS) Source Urine, Urine, Midstream 07/31/2024 11:17 AM CUT OFF TENDER [employer] FB60 Clarity Clear Clear 07/31/2024 11:20 AM CUT OFF TENDER GLASS FB60 Color Yellow 07/31/2024 11:20 AM CUT OFF TENDER [employer] [facility] Comment: ----REFERENCE VALUE---- Colorless Yellow Linh Blood Negative Negative 07/31/2024 11:20 AM CUT OFF TENDER GLASS FB60 Nitrite Negative Negative 07/31/2024 11:20 AM CUT OFF TENDER [employer]ASS FB60 Leukocyte Esterase Negative Negative 07/31/2024 11:20 AM CUT OFF TENDER GLASS FB60 Protein Negative mg/dL 07/31/2024 11:20 AM CUT OFF TENDER [employer] [facility] Comment: ----REFERENCE VALUE---- Negative Trace Glucose 100(A) Negative mg/dL 07/31/2024 11:20 AM CUT OFF TENDER [employer] FB60 Ketones, QI(U) Negative Negative mg/dL 07/31/2024 11:20 AM CUT OFF TENDER GLASS FB60 Bilirubin Negative Negative 07/31/2024 11:20 AM CUT OFF TENDER [employer] FB60 pH 6.0 5.0 - 8.0 07/31/2024 11:20 AM CUT OFF TENDER GLASS FB60 Specific Matheny 1.010 1.001 - 1.035 07/31/2024 11:20 AM CUT OFF TENDER GLASS FB60 Urobilinogen 0.2 0.2 - 1.0 mg/dL 07/31/2024 11:20 AM CUT OFF TENDER [employer] FB60 Urine (Urine, Midstream) 07/31/2024 11:07 AM CUT OFF TENDER [employer]ASS 07/31/2024 11:17 AM CUT OFF TENDER GLASS Yudi Gunn APRN, C.N.P., D.N.P. LA B URINE ORDERABLES Final Result Performing Organization Address City/State/[facility] Co de Phone Number [facility] [address] [place] [address], R[place] FB60 [facility] [place] [address] * Wound Care (06/28/2024 8:00 AM CDT) Narrative [facility] - 06/28/2024 8:00 AM CDT Yudi Gunn APRN, C.N.P., D.N.P. 06/28/2024 2:54 PM Wound Care Performed by: Yudi Gunn APRN, C.N.P., D.N.P. Authorized by: Yudi Gunn APRN, C.N.P., D.N.P. Care team members present 1. David Coates L.P.N. PROCEDURE DETAILS Wound care performed: dressing/packing removed Packing needed: no Dressing applied: yes Dressing: Medihoney and Mepilex. Wrapped with: kerlix CONSENT Consent obtained: verbal The benefits, risks and alternatives to the procedure and the potential need for sedation or anesthesia as well as the names, roles, and responsibilities of healthcare team members performing significant interventional tasks were discussed with the patient and/or decision maker. UNIV[employer]AL [employer]OTOCOL All relevant documentation and testing were reviewed and available. All required blood products, implants, devices and or special equipment were made available as applicable. Pre-procedure verification was conducted and the correct site was marked if required. A fire risk and smoke assessment were done as applicable. The procedural time-out to verify correct patient, correct side/site, and procedure was conducted prior to performing the procedure and confirmed in a procedural pause. PRE-PROCEDURE DETAILS Indications: open wounds Wound location: toe Toe location: And bilateral shins. Wound age (days): >14 Circulation distal to injury: capillary refill < 2 sec Sensation distal to injury: normal Movement distal to injury: normal Wound cleansed with: vashe. Amount of cleaning: extensive SEDATION / ANESTHESIA Anesthesia method: none POST-PROCEDURE DETAILS Procedure completed successfully: yes Circulation distal to injury: capillary refill < 2 sec Complications: no immediate complications us Yudi Gunn APR N, C.N.P., D.N.P. PROCEDURE/MINOR SURGICAL ORDERABLES Final Result [facility] NA * Lipid Panel (04/03/2024 12:09 PM CDT) Triglycerides 100 mg/dL 04/03/2024 2:51 PM CDT [facility] Comment: ----REFERENCE VALUE---- Normal: <150 mg/dL Borderline High: 150-199 mg/dL High: 200-499 mg/dL Very High: > or =500 mg/dL Cholesterol, Total 118 mg/dL 2023 2:51 PM CDT [facility] Comment: ----REFERENCE VALUE---- Desirable: < 200 mg/dL Borderline High: 200 - 239 mg/dL High: > or = 240 mg/dL Cholesterol, LDL, Calculated 54 mg/dL 04/03/2024 2:51 PM CDT [facility] Comment: ----REFERENCE VALUE---- Desirable: <100 mg/dL Above Desirable: 100-129 mg/dL Borderline High: 130-159 mg/dL High: 160-189 mg/dL Very High: >=190 mg/dL ----ADDITIONAL INFORMATION---- LDL cholesterol calculated using the Justice/NIH equation. Cholesterol, HDL 45 >=40 mg/dL 04/03/2024 2:51 PM CDT [facility] Cholesterol, Non-HDL, Calculated 73 mg/dL 04/03/2024 2:51 PM CDT [facility] Comment: ----REFERENCE VALUE---- Desirable: <130 mg/dL Above Desirable: 130-159 mg/dL Borderline High: 160-189 mg/dL High: 190-219 mg/dL Very High: > or =220 mg/dL Fasting (8 HR or more) Unknown 04/03/2024 1:44 PM CDT [facility] Blood (Blood, Venous) 04/03/2024 12:09 PM CDT 04/03/2024 1:41 PM CDT us Yudi Gunn APRN, C.N.P., D.N.P. LA B BLOOD ADD-ON Final Result [facility] [address] [place] [id number], [place] [facility] [place] [address] [address] * (ABNORMAL) Basic Metabolic Panel (04/03/2024 12:09 PM CDT) Potassium, P 4.5 3.6 - 5.2 mmol/L 04/03/2024 2:51 PM CDT [facility] Sodium, P 137 135 - 145 mmol/L 04/03/2024 2:51 PM CDT [facility] Chloride, P 101 98 - 107 mmol/L 04/03/2024 2:51 PM CDT OWAT Bicarbonate, P 26 22 - 29 mmol/L 04/03/2024 2:51 PM CDT OWAT Anion Gap, P 10 7 - 15 04/03/2024 2:51 PM CDT OWAT BUN (Blood Urea Nitrogen), P 14 8 - 24 mg/dL 04/03/2024 2:51 PM CDT OWAT Creatinine 0.81 0.74 - 1.35 mg/dL 04/03/2024 2:51 PM CDT OWAT Estimated GFR (eGFR) >90 >=60 mL/min/BSA 04/03/2024 2:51 PM CDT OWAT Comment: Estimated GFR calculated using the 2020 CKD_EPI creatinine equation. Calcium, Total, P 9.3 8.8 - 10.2 mg/dL 04/03/2024 2:51 PM CDT OWAT Glucose, P 297(H) 70 - 140 mg/dL 04/03/2024 2:51 PM CDT OWAT Blood (Blood, Venous) 04/03/2024 12:09 PM CDT 04/03/2024 1:41 PM CDT Yudi Gunn APRN, C.N.P., D.N.P. AMANDA Brannon BLOOD ADD-ON Final Result [facility] [address] [place] [id number], RUST OWAT [facility] [place] [address] [place] [phone] from Last 3 Months or Most Recently Relevant to Health Maintenance Insurance MEDICARE [facility] Care Teams Side Door Worker Relationship Specialty Start Date End Date Martin-Yudi Weaver APRN, C.N.P., D.N.P. [address] [place] [phone] PCP - General Family Medicine 12/05/23 [facility] Ophthalmology 04/03/24
--- OUTSIDE RECORDS SUMMARY | 2024-10-01 09:37 | XMS_ITS | Clinical Summary ---
Author Organization [facility] Address [address] [place] [address] Care Team Providers Care Box Shook Patcher Name Role Phone Radhames Casas Primary Care Provider [phone] Allergies No known active allergies Medications clonazePAM [...] 10.2(H) <5.7 % 02/06/2021 10:25 AM CDT [facility] EAG (EST. AVERAGE GLUCOSE) 246(H) <117 mg/dL 02/06/2021 10:25 AM [facility] Blood 02/06/2021 6:50 AM CDT 02/06/2021 7:35 AM CDT Peri Garcia [facility] CHEMISTRY ORDERABLE Final Re sult [facility] [address] [place] [address] * (ABNORMAL) Basic Metabolic Profile (02/06/2021 6:50 AM CDT) Sodium 136 136 - 145 mmol/L 02/06/2021 7:55 AM [facility] Potassium 3.7 3.5 - 5.1 mmol/L 02/06/2021 7:55 AM [facility] Chloride 104 98 - 112 mmol/L 02/06/2021 7:55 AM [facility] Carbon Dioxide 29 21 - 32 mmol/L 02/06/2021 7:55 AM [facility] BUN (Urea Nitro) 13 7 - 24 mg/dL 02/06/2021 7:55 AM [facility] Creatinine 0.80 0.70 - 1.30 mg/dL 02/06/2021 7:55 AM [facility] Est GFR (CKD-EPI) >60 >60 mL/min 02/06/2021 7:55 AM [facility] EST GFR IF AM >60 >60 mL/min 02/06/2021 7:55 AM [facility] Glucose 238(H) 74 - 106 mg/dL 02/06/2021 7:55 AM [facility] Calcium, Serum 8.8 8.5 - 10.1 mg/dL 02/06/2021 7:55 AM [facility] Anion Gap 3.0 0.0 - 15.0 mmol/L 02/06/2021 7:55 AM [facility] Blood 02/06/2021 6:50 AM CDT 02/06/2021 7:34 AM CDT us William Chamberlain OWNER OPERATOR, [employer]MENT[employer] FLOOR TECH CHEMISTRY ORDERABL E Final Result [facility] [address] [place] [id number] from Last 3 Months or Most Recently Relevant to Health Maintenance Insurance [address] [place] [address] MEDICARE PART A & B [facility] [address] [place] [address] Advance Directives For more information, please contact: [phone] * Full Code (Latest Code Status on File) Date Activated Date Inactivated Comments 06/21/2023 2:40 PM 06/21/2023 10:51 PM Question Answer Comments How was code status determined? Patient * Full Code Date Activated Date Inactivated Comments 02/05/2021 5:27 AM 02/08/2021 9:54 PM Question Answer Comments How was code status determined? Patient Care Teams Box Shook Patcher Relationship Specialty Start Date End Date Radhames Casas [address] [facility] [place] [address] PCP - General Family Medicine 02/05/21
--- OUTSIDE RECORDS SUMMARY | 2024-10-01 09:37 | XMS_ITS | Referral Summary ---
Author Organization [facility] Address [address] [place] [address] Care Team Providers Care Ekg Monitor Tech Name Role Phone Radhames Casas Primary Care Provider [phone] Allergies No known active allergies Medications clonazePAM [...] 02/05/2021 Hip hematoma, left, initial encounter 02/05/2021 Social History Tobacco Use Types Packs/Day Years [...] 06/20/2023 9:20 AM CDT Plan of Treatment Not on file Procedures Procedure Name Priority Date/Time Associated Diagnosis Comments BASIC METAB PROFILE Routine 02/06/2021 6 :50 AM CDT HBA1C / EAG Routine 02/06/2021 6:50 AM CDT from Last 3 Months or Most Recently Relevant to Health Maintenance Results * (ABNORMAL) Hgb A1c (Glycosolated Hgb) (02/06/2021 6:50 AM CDT) HBA1C (GLYCOSOLATED HGB) 10.2(H) <5.7 % 02/06/2021 10:25 AM CDT [facility] EAG (EST. AVERAGE GLUCOSE) 246(H) <117 mg/dL 02/06/2021 10:25 AM CDT [facility] Blood 02/06/2021 6:50 AM CDT 02/06/2021 7:35 AM CDT Peri Garcia [facility] CHEMISTRY ORDERABLE Final Re sult [facility] [address] [place] [address] * (ABNORMAL) Basic Metabolic Profile (02/06/2021 6:50 AM CDT) Sodium 136 136 - 145 mmol/L 02/06/2021 7:55 AM CDT [facility] Potassium 3.7 3.5 - 5.1 mmol/L 02/06/2021 7:55 AM CDT [facility] Chloride 104 98 - 112 mmol/L 02/06/2021 7:55 AM CDT [facility] Carbon Dioxide 29 21 - 32 mmol/L 02/06/2021 7:55 AM CDT [facility] BUN (Urea Nitro) 13 7 - 24 mg/dL 02/06/2021 7:55 AM CDT [facility] Creatinine 0.80 0.70 - 1.30 mg/dL 02/06/2021 7:55 AM CDT [facility] Est GFR (CKD-EPI) >60 >60 mL/min 02/06/2021 7:55 AM CDT [facility] EST GFR IF AM >60 >60 mL/min 02/06/2021 7:55 AM CDT [facility] Glucose 238(H) 74 - 106 mg/dL 02/06/2021 7:55 AM CDT [facility] Calcium, Serum 8.8 8.5 - 10.1 mg/dL 02/06/2021 7:55 AM CDT [facility] Anion Gap 3.0 0.0 - 15.0 mmol/L 02/06/2021 7:55 AM T [facility] Blood 02/06/2021 6:50 AM CDT 02/06/2021 7:34 AM CDT William Chamberlain LEAD CARPENTER, CYANIDE CASE HARDENER CHEMISTRY ORDERABL E Final Result [facility] [address] [place] [phone] from Last 3 Months or Most Recently Relevant to Health Maintenance Insurance [address] [facility] [id number] MEDICARE PART A & [place] [address] [address] [place] [id number] Advance Directives For more information, please contact: [phone] * Full Code (Latest Code Status on File) Date Activated Date Inactivated Comments 06/21/2023 2:40 PM 06/21/2023 10:51 PM Question Answer Comments How was code status determined? Patient * Full Code Date Activated Date Inactivated Comments 02/05/2021 5:27 AM 02/08/2021 9:54 PM Question Answer Comments How was code status determined? Patient Care Teams Ekg Monitor Tech Relationship Specialty Start Date End Date Radhames Casas [address] [place] [address] PCP - General Family Medicine 02/05/21
--- OUTSIDE RECORDS SUMMARY | 2024-10-01 09:38 | XMS_ITS | Clinical Summary ---
Author Organization [facility] Address [address] [place] [address] Care Team Providers Care Cosmetologist Apprentice Name Role Phone Yudi Gunn APRN, C.N.P., D.N.P. P [facility] Care Provider Source Comments Patient records contain information from all sites at [facility]. For routine questions regarding patient records, call [phone] during business hours, M-F 8:00 AM - 5:00 PM Central Time. Record requests for emergency care only can be directed to [phone] at any time.[facility] Allergies Active Allergy Reactions Criticality Noted Date [...] Active blood-glucose meter (Accu-Chek Guide Glucose Meter) misc See Admin Instructions. Active blood sugar diagnostic [...] Limb Multiple Open Subsequent Right 08/03/2024 Callus Victoria Foot 07/03/2024 Overview (07/03/2024): Plantar aspect of [...] He is scheduled to see Podiatry at [facility] on . Diabetes Mellitus [...] Of Right Foot With Unspecified Severity 03/17/202204/2024 Encounters Date Type Department Care Team Description 09/27/[address] [facility], [facility], in [address] [phone] Yudi Gunn APRN, C.N.P., D.N.P. Appt Request (Pre-op) 09/21/[address] [facility], [facility], in [place], [place] [address] [place] [address] Yudi Gunn APRN, C.N.P., D.N.P. 09/12/2024 Orders Only Department of [facility], in [place], [place] [address] [place] [address] Yudi Gunn APRN, C.N.P., D.N.P. 09/11/2024 9:00 AM CERTIFIED NURSE PRACTITIONER Comprehensive Visit Department of Endocrinology in [address] [phone] Lydia Cox, [facility], [facility].Siobhan.-C., P.A. Pain Shoulder Left 09/11/2024 7:50 AM CERTIFIED NURSE PRACTITIONER - 09/11/2024 11:59 PM CERTIFIED NURSE PRACTITIONER Hospital Encounter Department of Laboratory Medicine in [address] [phone] Yudi Gunn APRN, C.N.P., D.N.P. 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 Preoperative Exam (Primary Dx) 08/07/2024 8:20 AM CERTIFIED NURSE PRACTITIONER - 08/07/2024 11:59 PM CERTIFIED NURSE PRACTITIONER Hospital Encounter Department of Radiology in [address] [phone] Julio Gomez M.D. Personal History Of Diabetic Foot Ulcer; Wound Lower Limb Multiple Open Subsequent Left; Wound Lower Limb Multiple Open Subsequent Right Discharge Disposition: Home or Self Care 08/06/2024 7:38 AM CERTIFIED NURSE PRACTITIONER - 08/06/2024 11:59 PM CERTIFIED NURSE PRACTITIONER Hospital Encounter Department of Vascular Medicine in [place], [place] [address] [place] [phone] Julio Chadwick M.D. 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 Personal History Of Diabetic Foot Ulcer; Stasis Ulcer Varicose Vein Right (HCC) Discharge Disposition: Home or Self Care 08/03/2024 2:00 PM CERTIFIED NURSE PRACTITIONER Comprehensive Visit Department of Vascular Medicine in [place], [place] [address] [place] [phone] Julio Gomez M.D. Wound Lower Limb Multiple Open Subsequent Right (Primary Dx); Personal History Of Diabetic Foot Ulcer; Stasis Ulcer Varicose Vein Right (HCC); Stasis Dermatitis Lower Extremity Bilateral; Wound Lower Limb Multiple Open Subsequent Left; Hypertension Essential Primary; Diabetes Mellitus Type 2 Neuropathy Autonomic ([facility]); Callus Victoria Foot; Wound Foot Open Subsequent Left; Posttraumatic Stress Disorder Brief; Schizophrenia ([facility]); Nicotine Dependence Cigarettes In Remission Discharge Disposition: Home or Self Care 08/03/2024 1:20 PM CERTIFIED NURSE PRACTITIONER Ancillary Procedure Department of Vascular 08/03/2024 1:15 PM CERTIFIED NURSE PRACTITIONER Ancillary Procedure Department of Vascular 08/03/2024 12:05 PM CERTIFIED NURSE PRACTITIONER Ancillary Procedure Department of Vascular 08/03/2024 9:55 AM CERTIFIED NURSE PRACTITIONER - 08/03/2024 11:59 PM CERTIFIED NURSE PRACTITIONER Hospital Encounter Department of Laboratory Medicine and Pathology, [place], [place] [address] [place] [phone] Julio Chadwick M.D. Stasis Ulcer Varicose Vein Right (HCC) Discharge Disposition: Home or Self Care 08/03/2024 9:55 AM CERTIFIED NURSE PRACTITIONER - 08/03/2024 11:59 PM CERTIFIED NURSE PRACTITIONER Hospital Encounter Department of Laboratory Medicine and Pathology, [place], [place] [address] [place] [phone] Julio Chadwick M.D. Stasis Ulcer Varicose Vein Right (HCC) Discharge Disposition: Home or Self Care 08/03/2024 9:15 AM CERTIFIED NURSE PRACTITIONER Comprehensive Visit Department of Vascular Medicine in [place], [place] [address] [place] [phone] Julio Chadwick M.D. 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 Stasis Ulcer Varicose Vein Right (HCC); Stasis Dermatitis Lower Extremity Bilateral; Personal History Of Diabetic Foot Ulcer; Diabetes Mellitus Type 2 Ulcer (HCC) Discharge Disposition: Home or Self Care 07/27/[address] [facility], [facility], in [address] [phone] Yudi Gunn APRN, C.N.P., D.N.P. Med Refill 07/13/[address] [facility], [facility], in [address] [phone] Yudi Gunn APRN C.N.PNata, D.N.P. Med Refill 07/13/[address] [facility], [facility], in [address] [phone] Yudi Gunn APRN, C.N.P., D.N.P. Med Refill 07/04/[address] Clinical [address] of [facility], [facility], in [address] [phone] Yudi Gunn APRN C.N.P., D.N.P. PandaDoc Form ([employer] - DM Shoes/Inserts) 07/03/2024 1:40 PM CDT Office Visit Department of [facility] in [address] [phone] Maria A Doss APRN, C.N.P. Callus Victoria Foot (Primary Dx); Diabetes Mellitus Type 2 Ulcer (HCC); Wound Foot Open Subsequent Left 07/03/2024 Clinical Communication Department of Family Medicine, [facility], in [place] [address] [place] [phone] Yudi Gunn APRN, C.N.P., D.N.P. from Last 3 Months Immunizations Name Administration Dates Next Due Influenza TIV (IM) 10/09/2012, 8,07/21/2004, 003 Influenza, Seasonal, Injectable 10/09/19 13,12/05/2007,07/21/2004, 003 PCV20 04/03/2024 PPSV23 10/09/2012,12/05/2007 RZV (SHINGRIX) 03/21/2022 SARS-COV-2 (COVID-19) - MODERNA(Discontinued) 11/11/2021,10/12/2021 SARS-COV-2 (COVID-19) - PFIZER(Discontinued)(5 years through 11 years) 10/14/2021 Tdap 03/21/2022,03/31/2007 influenza vaccine quad (FLUZONE/FLUARIX) (6 months and older)(PF) 06/16/2020,10/02/2019,09/13/2018, 014 Family History Medical History Relation Name Comments Alcohol abuse Brother 1 Malcolm Prediabetes Brother 1 Malcolm No Known Problems Brother 2 Ed No Known Problems Brother 3 Donny No Known Problems Daughter 1 Acne Daughter 2 history of Skin cancer Father Stroke Father Depression Mother Mental illness Mother Alcohol abuse Sister 1 Mental illness Sister 1 Smoker Sister 1 Stroke Sister 1 No Known Problems Sister 2 Relation Name Status Comments Brother 1 Malcolm Alive Brother 2 Ed Alive Brother 3 Donny Alive Daughter 1 Alive Daughter 2 Alive Father Mother Alive Sister 1 Sister 2 Alive Social History Tobacco Use Types Packs/Day Years Used Date Smoking Tobacco: Former Cigarettes Smokeless Tobacco: Never Tobacco Cessation:Counseling Given: Not Answered Alcohol Use Standard Drinks/Week Comments Yes 16 (1 standard drink = 0.6 oz pu re alcohol) [facility] Utilities Answer Date Recorded In the past 12 months has e [employer], oil, or water [employer] threatened to shut off services in your [...] AM CDT Legal Sex Male 5:43 PM CERTIFIED NURSE PRACTITIONER Gender Identity Male 04/03/2024 10:02 AM CDT Sexual Orientation Choose not to disclose 2023 10:02 AM CDT Last Filed Vital Signs Vital Sign Reading Time Taken Comments Blood Pressure 130/87 08/16/2024 2:32 PM CERTIFIED NURSE PRACTITIONER Pulse 105 08/16/2024 2:32 PM CERTIFIED NURSE PRACTITIONER Temperature 36 C (96.8 F) 08/16/2024 2:25 PM CERTIFIED NURSE PRACTITIONER Respiratory Rate 16 08/16/2024 2:25 PM CERTIFIED NURSE PRACTITIONER Oxygen Saturation 97% 08/16/2024 2:25 PM CERTIFIED NURSE PRACTITIONER Inhaled Oxygen Concentration - - Weight 99.2 kg (218 lb 9.4 oz) 08/16/2024 2:25 P M CERTIFIED NURSE PRACTITIONER Height 184 cm (6' 0.44) 08/16/2024 2:25 PM CERTIFIED NURSE PRACTITIONER Body Mass Index 29.29 08/16/2024 2:25 PM CERTIFIED NURSE PRACTITIONER Plan of Treatment Health Maintenance Due Date Last Done Comments CT Colonography 1960 Cologuard 1960 Urine Albumin 1960 Hepatitis B Vaccines (1 of 3 - Risk 3-dose series) 2020 RSV vaccine - (32-36 weeks) or 60+ years (1 - Risk 60-74 years 1-dose series) 2020 Zoster Vaccines (2 of 2) 05/16/2022 03/21/2022 COVID-19 Vaccine (3 - season) 2024 11/11/2021, 10/14/2021, 10/12/2021 Influenza Vaccine (#1) 2024 , 10/02/2019, 09/13/2018, Additional history exists Depression Monitoring (PHQ-9) 08/04/2024 04/03/2024 Depression Monitoring (PHQ-9 for quality tracking) 09/26/2024 Hemoglobin A1C 12/10/2024 09/11/2024, 11/0 01/2024, 04/03/2024, Additional history exists Dilated Eye Exam 03/26/2025 03/26/2024 (Per formed elsewhere) Diabetic Office Visit with Foot Exam 04/03/2025 04/03/2024 Lipid (Cholesterol) Screening 04/03/2025 04/03/2024, 01/07/2022, 09/14/2019 Visit: Medicare Annual Wellness 04/04/2025 04/03/2024 Potassium Level 06/23/2025 06/23/2024, 07/0 05/2024, 09/07/2023, Additional history exists Sodium Level 06/23/2025 06/23/2024, 07/0 05/2024, 09/07/2023, Additional history exists Visit: Chronic Disease, age 18+ 07/03/2025 07/03/2024 Creatinine Level (Kidney Function Test) 08/03/2025 08/03/2024, 06/23/2024, 04/03/2024, Additional history exists Office Visit for Blood Pressure Check / Re-check 08/16/2025 08/16/2024 Colonoscopy 07/10/2029 07/10/2024, 06/01/2019, 02/09/2019 Colorectal Cancer Surveillance 07/10/2029 DTaP,Tdap,and Td Vaccines (3 - Td or Tdap) 03/21/2032 03/21/2022, 03/31/2007 Pneumococcal vaccine (50+ years) Completed 04/03/2024, 10/09/2012, 12/05/2007 IPV Vaccines Aged Out No longer eligi ble based on patient's age to complete this topic Medical Devices Implanted Type [employer] Device Identifier Shelf Expiration Date Model / Serial / Lot Ocular Lens Ocular Lens Bilateral : Eye Procedures Procedure Name Priority Date/Time Associated Diagnosis Comments HEMOGLOBIN A1C, B Routine 09/11/2024 8:03 AM CERTIFIED NURSE PRACTITIONER 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) MR FOOT RIGHT WITHOUT AND WITH IV CONTRAST RAD - Routine (most inpatients and all outpatients) 08/07/2024 10:12 AM CERTIFIED NURSE PRACTITIONER Personal History Of Diabetic Foot Ulcer Wound Lower Limb Multiple Open Subsequent Right MR FOOT LEFT WITHOUT AND WITH IV CONTRAST RAD - Routine (most inpatients and all outpatients) 08/07/2024 10:12 AM CERTIFIED NURSE PRACTITIONER Personal History Of Diabetic Foot Ulcer Wound Lower Limb Multiple Open Subsequent Left LOWER EXTREMITY ARTERIAL (SHOBHA) - TCPO2 (WOUND) Routine 08/06/2024 9:30 AM CERTIFIED NURSE PRACTITIONER 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) VASCULAR IMAGE EXAM Routine 08/03/2024 1:20 PM CERTIFIED NURSE PRACTITIONER VASCULAR IMAGE EXAM Routine 08/03/2024 1:15 PM CERTIFIED NURSE PRACTITIONER VASCULAR IMAGE EXAM Routine 08/03/2024 12:05 PM CERTIFIED NURSE PRACTITIONER DIPSTICK, U Routine 08/03/2024 10:19 AM CERTIFIED NURSE PRACTITIONER PH, U Routine 08/03/2024 10:19 AM CERTIFIED NURSE PRACTITIONER OSMOLALITY, U Routine 08/03/2024 10:19 AM CERTIFIED NURSE PRACTITIONER MICROSCOPIC AUTOMATED Routine 08/03/2024 10:19 AM CERTIFIED NURSE PRACTITIONER URINALYSIS WITH MICROSCOPIC Routine 08/03/2024 10:19 AM CERTIFIED NURSE PRACTITIONER Stasis Ulcer Varicose Vein Right (HCC) IMMUNOGLOBULINS (IGG, IGA, AND IGM), S Routine 08/03/2024 10:15 AM CERTIFIED NURSE PRACTITIONER Stasis Ulcer Varicose Vein Right (HCC) RHEUMATOID FACTOR, S/P Routine 08/03/2024 10:15 AM CERTIFIED NURSE PRACTITIONER Stasis Ulcer Varicose Vein Right (HCC) CRYOGLOBULIN, S Routine 08/03/2024 10:15 AM CERTIFIED NURSE PRACTITIONER Stasis Ulcer Varicose Vein Right (HCC) COMPLEMENT C4, S Routine 08/03/2024 10:15 AM CERTIFIED NURSE PRACTITIONER Stasis Ulcer Varicose Vein Right (HCC) COMPL C3, S Routine 08/03/2024 10:15 AM CERTIFIED NURSE PRACTITIONER Stasis Ulcer Varicose Vein Right (HCC) AB TO EXTRACTABLE NUCLEAR AG EVAL, S Routine 08/03/2024 10:15 AM CERTIFIED NURSE PRACTITIONER Stasis Ulcer Varicose Vein Right (HCC) ANTINUCLEAR ABS (KORTNEY), S Routine 08/03/2024 10:15 AM CERTIFIED NURSE PRACTITIONER Stasis Ulcer Varicose Vein Right (HCC) CREATININE WITH EGFR, S/P Routine 08/03/2024 10:15 AM CERTIFIED NURSE PRACTITIONER Stasis Ulcer Varicose Vein Right (HCC) C-REACTIVE PROTEIN (CRP), S/P Routine 08/03/2024 10:15 AM CERTIFIED NURSE PRACTITIONER Stasis Ulcer Varicose Vein Right (HCC) SEDIMENTATION RATE, B Routine 08/03/2024 10:15 AM CERTIFIED NURSE PRACTITIONER Stasis Ulcer Varicose Vein Right (HCC) CBC WITH DIFFERENTIAL, B Routine 08/03/2024 10:15 AM CERTIFIED NURSE PRACTITIONER Stasis Ulcer Varicose Vein Right (HCC) HCV AB W/REFLEX TO HCV PCR, S Routine 08/03/2024 10:15 AM CERTIFIED NURSE PRACTITIONER Stasis Ulcer Varicose Vein Right (HCC) HBC TOTAL AB, SERUM Routine 08/03/2024 10:15 AM CERTIFIED NURSE PRACTITIONER Stasis Ulcer Varicose Vein Right (HCC) HBS ANTIBODY, SERUM Routine 08/03/2024 10:15 AM CERTIFIED NURSE PRACTITIONER Stasis Ulcer Varicose Vein Right (HCC) HEPATITIS B SURFACE ANTIGEN Routine 08/03/2024 10:15 AM CERTIFIED NURSE PRACTITIONER Stasis Ulcer Varicose Vein Right (HCC) HEMOGLOBIN A1C, B Routine 07/31/2024 11:09 AM CERTIFIED NURSE PRACTITIONER Diabetes Mellitus Type 2 Ulcer (HCC) SEDIMENTATION RATE, B Routine 07/31/2024 11:09 AM CERTIFIED NURSE PRACTITIONER Personal History Of Diabetic Foot Ulcer Stasis Ulcer Varicose Vein Right (HCC) Stasis Dermatitis Lower Extremity Bilateral ANCA VASCULITIS PANEL, S Routine 07/31/2024 11:09 AM CERTIFIED NURSE PRACTITIONER Stasis Ulcer Varicose Vein Right (HCC) Stasis Dermatitis Lower Extremity Bilateral URINALYSIS WITH MICROSCOPIC IF INDICATED, U Routine 07/31/2024 11:07 AM CERTIFIED NURSE PRACTITIONER Personal History Of Diabetic Foot Ulcer Stasis Ulcer Varicose Vein Right (HCC) Stasis Dermatitis Lower Extremity Bilateral LIPID PANEL, S Routine 04/03/2024 12:09 PM CDT Health Maintenance Examination Adult BASIC METABOLIC PANEL, S/P Routine 04/03/2024 12:09 PM CDT Health Maintenance Examination Adult from Last 3 Months or Most Recently Relevant to Health Maintenance Results * (ABNORMAL) Hemoglobin A1c (09/11/2024 8:03 AM CERTIFIED NURSE PRACTITIONER) Only the most recent of2 resultswithin the time period is included. Hemoglobin A1c, B 9.5(H) 4.2 - 5.6 % 09/11/2024 3:31 PM CERTIFIED NURSE PRACTITIONER OWAT Comment: Hemoglobin A1c values greater than or equal to 6.5 percent are diagnostic for diabetes mellitus. Diagnosis should be confirmed by repeat testing. In diabetic patients, HbA1c goals should be discussed with healthcare provider. Blood (Blood, Venous) 09/11/2024 8:03 AM CERTIFIED NURSE PRACTITIONER 09/11/2024 8:12 AM CERTIFIED NURSE PRACTITIONER us Yudi Gunn APRN, C.N.P., D.N.P. LA B BLOOD ADD-ON Final Result [facility] [address] [place] [address], [facility] OW[facility] [place] [address] [place] [address] * MR Foot Left without and with IV Contrast (08/07/2024 10:12 AM CERTIFIED NURSE PRACTITIONER) Anatomical Region Laterality Modality Lower Extremity, Foot, Muscu loskeletal RST LOS, Musculoskeletal ARZ LOS, Muskuloskeletal FLA LOS Left Magne tic Resonance Impressions 08/07/2024 10:16 AM CERTIFIED NURSE PRACTITIONER 1. Mild skin thickening and subcutaneous edema [...] and subacute denervation. Narrative 08/07/2024 10:16 AM CERTIFIED NURSE PRACTITIONER EXAM: MR FOOT LEFT WITHOUT AND WITH [...] and with IV Contrast (08/07/2024 10:12 AM CERTIFIED NURSE PRACTITIONER) Anatomical Region Laterality Modality Lower Extremity, Foot, Muscu loskeletal RST LOS, Musculoskeletal ARZ LOS, Muskuloskeletal FLA LOS Right Magne tic Resonance Impressions 08/07/2024 10:28 AM CERTIFIED NURSE PRACTITIONER 1. Soft tissue ulcer along the medial [...] and subacute denervation. Narrative 08/07/2024 10:28 AM CERTIFIED NURSE PRACTITIONER EXAM: MR FOOT RIGHT WITHOUT AND WITH [...] changesrelated to diabetic microvascular insufficiency and subacutedenervation. Julio Gomez M.D. IMRosaline MRI PROCEDURES Final Re sult * Lower Extremity Arterial (SHOBHA) - TCPO2 (Wound) (08/06/2024 9:30 AM CERTIFIED NURSE PRACTITIONER) Anatomical Region Laterality Modality Other 08/06/2024 7:48 AM CERTIFIED NURSE PRACTITIONER Narrative 08/06/2024 10:07 AM CERTIFIED NURSE PRACTITIONER Right: Doppler Waveforms: Normal at all levels [...] bepresent. No prior studies available for comparison. us Julio Chadwick M.D. CV VASCULAR PROCEDURES Fin al Result * Foot, Right-Vascular Image Exam (08/03/2024 1:20 PM CERTIFIED NURSE PRACTITIONER) Only the most recent of3 resultswithin the time period is included. 08/03/2024 1:12 PM CERTIFIED NURSE PRACTITIONER Narrative IIMS - 08/03/2024 3:15 PM CERTIFIED NURSE PRACTITIONER This order has been created and auto-finalized to support the import of images acquired without order. The clinical documentation to support these images can be found on the encounter that produced images. us Provider Not In System IMG NON RAD IMAGING PROCE DURES Final Result Performing Organization Address [facility] Co de Phone Number II NA * (ABNORMAL) Dipstick, Urine (08/03/2024 10:19 AM CERTIFIED NURSE PRACTITIONER) Hemoglobin, QL, U Negative Negative 08/03/2024 11:19 AM CERTIFIED NURSE PRACTITIONER DTL Leukocyte Esterase, U Negative Negative 08/03/2024 11:19 AM CERTIFIED NURSE PRACTITIONER DTL Nitrite, U Negative Negative 08/03/2024 11:19 AM CERTIFIED NURSE PRACTITIONER DTL Ketone, U 5(A) Negative mg/dL 08/03/2024 11:19 AM CERTIFIED NURSE PRACTITIONER DTL Glucose, U 300(A) Negative mg/dL 08/03/2024 11:19 AM CERTIFIED NURSE PRACTITIONER DTL Urine 08/03/2024 10:1 9 AM CERTIFIED NURSE PRACTITIONER 08/03/2024 10:52 AM CERTIFIED NURSE PRACTITIONER Julio Chadwick M.D. LAB URINE ORDERABLES Final Result Performing Organization Address [facility] [place] [address], [facility] [place] [address] * Microscopic Automated (08/03/2024 10:19 AM CERTIFIED NURSE PRACTITIONER) Microscopy Normal 08/03/2024 11:19 AM CERTIFIED NURSE PRACTITIONER DTL RBC <3 <3 /hpf 08/03/2024 11:19 AM CERTIFIED NURSE PRACTITIONER DTL WBC None Seen /hpf 08/03/2024 11:19 AM CERTIFIED NURSE PRACTITIONER DTL Comment: ----REFERENCE VALUE---- <4 (Males) <11 (Females) Casts, Hyaline 1-3 /lpf 08/03/2024 11:19 AM CERTIFIED NURSE PRACTITIONER DTL Urine 08/03/2024 10:1 9 AM CERTIFIED NURSE PRACTITIONER 08/03/2024 10:52 AM CERTIFIED NURSE PRACTITIONER Julio Chadwick M.D. LAB URINE ORDERABLES Final Result Performing Organization Address City/[facility] Co de Phone Number [facility] [address] [place] [address], [facility] [address] [place] [address] * pH, Urine (08/03/2024 10:19 AM CERTIFIED NURSE PRACTITIONER) Pathologist [facility] [place] pH, U 5.5 4.5 - 8.0 08/03/2024 11: 52 AM CERTIFIED NURSE PRACTITIONER DTL Urine 08/03/2024 10:1 9 AM CERTIFIED NURSE PRACTITIONER 08/03/2024 10:52 AM CERTIFIED NURSE PRACTITIONER us Julio Chadwick M.D. LAB URINE ORDERABLES Final Result Performing Organization Address City/[facility]/ZIP Co de Phone Number [facility] [address] [place], [place] [address] [address] [place] [address] * Osmolality, Urine (08/03/2024 10:19 AM CERTIFIED NURSE PRACTITIONER) [facility] Osmolality, U 547 150 - 1150 mOsm/kg 08/03/2024 11:52 AM CERTIFIED NURSE PRACTITIONER DT Urine 08/03/2024 10:1 9 AM CERTIFIED NURSE PRACTITIONER 08/03/2024 10:52 AM CERTIFIED NURSE PRACTITIONER us Julio Chadwick M.D. LAB URINE ORDERABLES Final Result Performing Organization Address City/[facility]/ZIP Co de Phone Number [facility] [address] [place], [place] [address] [address] [place] [address] * Urinalysis, with Microscopic: Urine, Voided (08/03/2024 10:19 AM CERTIFIED NURSE PRACTITIONER) Pathologist [facility] Source Urine, Urine, Voided 08/03/2024 10:51 AM CERTIFIED NURSE PRACTITIONER DTL Color, U Yellow 08/03/2024 10:52 AM CERTIFIED NURSE PRACTITIONER DTL Clarity, U Clear 08/03/2024 10:52 AM CERTIFIED NURSE PRACTITIONER DTL Protein, U 8 <26 mg/dL 08/03/2024 11:31 AM CERTIFIED NURSE PRACTITIONER DTL Protein/Osmola lity 0.15 <0.42 ratio 08/03/2024 11:52 AM CERTIFIED NURSE PRACTITIONER DTL Predicted 24 HR Protein, U 151 <229 mg/24 h 08/03/2024 11:52 AM CERTIFIED NURSE PRACTITIONER DTL Predicted Range 48-475 mg/24 h 08/03/2024 11:52 AM CERTIFIED NURSE PRACTITIONER DTL Urine (Urine, Voided) 08/03/2024 10:19 AM CERTIFIED NURSE PRACTITIONER 08/03/2024 10:51 AM CERTIFIED NURSE PRACTITIONER Julio Chadwick M.D. LAB URINE ORDERABLES Final Result Performing Organization Address City/[facility]/ZIP Co de Phone Number [facility] [address] [place] [address], [facility] [address] [place] [address] * Antibody to Extractable Nuclear Antigen Evaluation (08/03/2024 10:15 AM CERTIFIED NURSE PRACTITIONER) SS-A/Ro Ab, IgG, S <0.2 <1.0 (Negative) U 08/03/2024 4:06 PM CERTIFIED NURSE PRACTITIONER SDSC SS-B/La Ab, IgG, S <0.2 <1.0 (Negative) U 08/03/2024 4:06 PM CERTIFIED NURSE PRACTITIONER [facility] Sm Ab, IgG, S <0.2 <1.0 (Negative) U 08/03/2024 4:06 PM CERTIFIED NURSE PRACTITIONER [facility] COMPUTER TESTER Ab, IgG, S 0.4 <1.0 (Negative) U 08/03/2024 4:06 PM CERTIFIED NURSE PRACTITIONER [facility] Scl 70 Ab, IgG, S <0.2 <1.0 (Negative) U 08/03/2024 4:06 PM CERTIFIED NURSE PRACTITIONER [facility] Shante 1 Ab, IgG, S <0.2 <1.0 (Negative) U 08/03/2024 4:06 PM CERTIFIED NURSE PRACTITIONER SDSC Blood (Blood, Venous) 08/03/2024 10:15 AM CERTIFIED NURSE PRACTITIONER 08/03/2024 2:02 PM CERTIFIED NURSE PRACTITIONER Julio Chadwick M.D. LAB BLOOD ADD-ON Final Res ult [facility] [address] [place] [address] [facility] [address] [place] [address] * HCV Ab w/Reflex to HCV PCR, Serum (08/03/2024 10:15 AM CERTIFIED NURSE PRACTITIONER) Pathologist [facility] HCV Ab, S Negative Negative 08/03/2024 3:20 PM CERTIFIED NURSE PRACTITIONER [facility] Comment: Consumption of high-dose biotin supplement within 12 hours of blood collection for this test can cause false-negative results. Blood (Blood, Venous) 08/03/2024 10:15 AM CERTIFIED NURSE PRACTITIONER 08/03/2024 2:01 PM CERTIFIED NURSE PRACTITIONER Julio Chadwick M.D. LAB MICROBIOLOGY - BLOOD O RDERABLES Final Result Performing Organization Address [facility] de Phone Number [facility] [address] [place] [address] [facility] [address] [place] [address] * Cryoglobulin (08/03/2024 10:15 AM CERTIFIED NURSE PRACTITIONER) Pathologist [facility] [place] Cryoglobulin , S Negative. This test is negative at 24 hours. All samples are held and reviewed again at 7 days. If delayed precipitation occurs after 7 days, Immunofixation will be performed and an additional report will follow. Negative %ppt 08/07/2024 10:33 AM CERTIFIED NURSE PRACTITIONER [facility] Blood (Blood, Venous) 08/03/2024 10:15 AM CERTIFIED NURSE PRACTITIONER 08/03/2024 1:58 PM CERTIFIED NURSE PRACTITIONER Julio Chadwick M.D. LAB BLOOD NON ADD-ON Final Result Performing Organization Address City/[facility] Co de Phone Number [facility] [address] [place] [address] [facility] [address] [place] [address] [place] [address] * HBc Total Ab, Serum (08/03/2024 10:15 AM CERTIFIED NURSE PRACTITIONER) Pathologist [facility] [place] HBc Total Ab, S Negative Negative 08/03/2024 3:26 PM CERTIFIED NURSE PRACTITIONER [facility] Blood (Blood, Venous) 08/03/2024 10:15 AM CERTIFIED NURSE PRACTITIONER 08/03/2024 2:01 PM CERTIFIED NURSE PRACTITIONER Julio Chadwick M.D. LAB MICROBIOLOGY - BLOOD O RDERABLES Final Result Performing Organization Address City/[facility] Co de Phone Number [facility] [address] [address] [facility] [address] [place] [address] * HBs Antibody, Serum (08/03/2024 10:15 AM CERTIFIED NURSE PRACTITIONER) HBs Antibody, S Negative 3:26 PM CERTIFIED NURSE PRACTITIONER [facility] Comment: Patient is NOT immune to HBV infection. Consumption of high-dose biotin supplement within 12 hours of blood collection for this test can cause false-negative results. ----REFERENCE VALUE---- Unvaccinated: Negative Vaccinated: Positive HBs Antibody, Quantitative, S <3.5 mIU/mL 08/03/2024 3:26 PM CERTIFIED NURSE PRACTITIONER [facility] Comment: ----REFERENCE VALUE---- Unvaccinated: <8.5 mIU/mL Vaccinated: >=11.5 mIU/mL Blood (Blood, Venous) 08/03/2024 10:15 AM CERTIFIED NURSE PRACTITIONER 08/03/2024 2:01 PM CERTIFIED NURSE PRACTITIONER Julio Chadwick M.D. LAB MICROBIOLOGY - BLOOD O RDERABLES Final Result Performing Organization Address City/[facility]/ZIP Co de Phone Number [facility] [address] [place] [address] [facility] [address] [place] [address] * Hepatitis B Surface Antigen (08/03/2024 10:15 AM CERTIFIED NURSE PRACTITIONER) HBs Antigen, S Negative Negative 08/03/2024 3:26 PM CERTIFIED NURSE PRACTITIONER [facility] Blood (Blood, Venous) 08/03/2024 10:15 AM CERTIFIED NURSE PRACTITIONER 08/03/2024 2:01 PM CERTIFIED NURSE PRACTITIONER us Julio Chadwick M.D. LAB MICROBIOLOGY - BLOOD O RDERABLES Final Result Performing Organization Address City/[facility]/ZIP Co de Phone Number [facility] [address] [place] [address] [facility] [address] [place] [address] * Sedimentation Rate (08/03/2024 10:15 AM CERTIFIED NURSE PRACTITIONER) Only the most recent of2 resultswithin the time period is included. [facility] Sedimentation Rate, B 5 2 - 20 mm/h 08/03/2024 11:37 AM CERTIFIED NURSE PRACTITIONER DTL Blood (Blood, Venous) 08/03/2024 10:15 AM CERTIFIED NURSE PRACTITIONER 08/03/2024 10:39 AM CERTIFIED NURSE PRACTITIONER Julio Chadwick M.D. LAB BLOOD ADD-ON Final Res ult Performing Organization Address City/[facility] Co de Phone Number [facility] [address] [place] [address], [facility] DTL [facility] [address] [place] [address] * CBC with Differential, Blood (08/03/2024 10:15 AM CERTIFIED NURSE PRACTITIONER) [facility] Hemoglobin 13.5 13.2 - 16.6 g/dL 08/03/2024 10:52 AM CERTIFIED NURSE PRACTITIONER DTL Hematocrit 42.2 38.3 - 48.6 % 08/03/2024 10:52 AM CERTIFIED NURSE PRACTITIONER DTL Erythrocytes 4.90 4.35 - 5.65 x10(12)/L 08/03/2024 10:52 AM CERTIFIED NURSE PRACTITIONER DTL MCV 86.1 78.2 - 97.9 fL 08/03/2024 10:52 AM CERTIFIED NURSE PRACTITIONER DTL RBC Distrib Width 13.2 11.8 - 14.5 % 08/03/2024 10:52 AM CERTIFIED NURSE PRACTITIONER DTL Platelet Count 194 135 - 317 x10(9)/L 08/03/2024 10:52 AM CERTIFIED NURSE PRACTITIONER DTL Leukocytes 6.9 3.4 - 9.6 x10(9)/L 08/03/2024 10:52 AM CERTIFIED NURSE PRACTITIONER DTL Neutrophils 4.17 1.56 - 6.45 x10(9)/L 08/03/2024 10:52 AM CERTIFIED NURSE PRACTITIONER [facility] Lymphocytes 1.65 0.95 - 3.07 x10(9)/L 08/03/2024 10:52 AM CERTIFIED NURSE PRACTITIONER DTL Monocytes 0.71 0.26 - 0.81 x10(9)/L 08/03/2024 10:52 AM CERTIFIED NURSE PRACTITIONER DTL Eosinophils 0.34 0.03 - 0.48 x10(9)/L 08/03/2024 10:52 AM CERTIFIED NURSE PRACTITIONER DTL Basophils 0.06 0.01 - 0.08 x10(9)/L 08/03/2024 10:52 AM CERTIFIED NURSE PRACTITIONER DTL Blood (Blood, Venous) 08/03/2024 10:15 AM CERTIFIED NURSE PRACTITIONER 08/03/2024 10:39 AM CERTIFIED NURSE PRACTITIONER Julio Chadwick M.D. LAB BLOOD ADD-ON Final Res ult [facility] [address] [place] [address], [facility] DTL [facility] [address] [place] [address] [facility] [address] [place] [address] * Rheumatoid Factor (08/03/2024 10:15 AM CERTIFIED NURSE PRACTITIONER) [facility] Rheumatoid Factor, S <15 <15 IU/mL 08/03/2024 3:06 PM CERTIFIED NURSE PRACTITIONER [facility] Blood (Blood, Venous) 08/03/2024 10:15 AM CERTIFIED NURSE PRACTITIONER 08/03/2024 2:36 PM CERTIFIED NURSE PRACTITIONER Julio Chadwick M.D. LAB BLOOD ADD-ON Final Res ult [facility] [address] [place] [address] [facility] [address] [place] [address] * Immunoglobulins (IgG, IgA, and IgM) (08/03/2024 10:15 AM CERTIFIED NURSE PRACTITIONER) Immunoglobulin A (IgA), S 212 61 - 356 mg/dL 08/03/2024 4:00 PM CERTIFIED NURSE PRACTITIONER [facility] Immunoglobulin M (IgM), S 55 37 - 286 mg/dL 08/03/2024 4:00 PM CERTIFIED NURSE PRACTITIONER [facility] Immunoglobulin G (IgG), S 1460 767 - 1590 mg/dL 08/03/2024 4:00 PM CERTIFIED NURSE PRACTITIONER [facility] Blood (Blood, Venous) 08/03/2024 10:15 AM CERTIFIED NURSE PRACTITIONER 08/03/2024 1:58 PM CERTIFIED NURSE PRACTITIONER Julio Chadwick M.D. LAB BLOOD ADD-ON Final Res ult Performing Organization Address [facility]/ZIP Co de Phone Number [facility] [address] [place], [place] [id number] [place] [address] [place] [address] * Complement C3 (08/03/2024 10:15 AM CERTIFIED NURSE PRACTITIONER) Complement C3, S 118 75 - 175 mg/dL 08/03/2024 4:13 PM CERTIFIED NURSE PRACTITIONER [facility] Blood (Blood, Venous) 08/03/2024 10:15 AM CERTIFIED NURSE PRACTITIONER 08/03/2024 1:58 PM CERTIFIED NURSE PRACTITIONER Julio Chadwick M.D. LAB BLOOD ADD-ON Final Res ult Performing Organization Address [facility]/ZIP Co de Phone Number [facility] [address] [place] [address] [facility] [address] [place] [address] [place] [address] * Complement C4 (08/03/2024 10:15 AM CERTIFIED NURSE PRACTITIONER) Complement C4, S 23 14 - 40 mg/dL 08/03/2024 4:12 PM CERTIFIED NURSE PRACTITIONER [facility] Blood (Blood, Venous) 08/03/2024 10:15 AM CERTIFIED NURSE PRACTITIONER 08/03/2024 1:58 PM CERTIFIED NURSE PRACTITIONER us Julio Chadwick M.D. LAB BLOOD ADD-ON Final Res ult [facility] [address] [place] [address] [facility] [address] [place] [address] * CRP (C-Reactive Protein) (08/03/2024 10:15 AM CERTIFIED NURSE PRACTITIONER) C-Reactive Protein (CRP), S <3.0 <5.0 mg/L 08/03/2024 11:09 AM CERTIFIED NURSE PRACTITIONER DT Blood (Blood, Venous) 08/03/2024 10:15 AM CERTIFIED NURSE PRACTITIONER 08/03/2024 10:52 AM CERTIFIED NURSE PRACTITIONER Julio Chadwick M.D. LAB BLOOD ADD-ON Final Res ult Performing Organization Address City/[facility]/ZIP Co de Phone Number [facility] [address] [place] [address], [facility] [address] [place] [address] * KORTNEY (Antinuclear Antibodies) (08/03/2024 10:15 AM CERTIFIED NURSE PRACTITIONER) Antinuclear Ab, S 0.3 <=1.0 (Negative) U 08/03/2024 6:04 PM CERTIFIED NURSE PRACTITIONER [facility] Comment: ----ADDITIONAL INFORMATION---- Method: Enzyme-linked immunoassay using HEp-2 nuclear extract supplemented with purified antigens. Blood (Blood, Venous) 08/03/2024 10:15 AM CERTIFIED NURSE PRACTITIONER 08/03/2024 2:02 PM CERTIFIED NURSE PRACTITIONER Julio Chadwick M.D. LAB BLOOD ADD-ON Final Res ult [facility] [address] [address] [facility] [address] [place] [address] * Creatinine with Estimated GFR (08/03/2024 10:15 AM CERTIFIED NURSE PRACTITIONER) Creatinine 0.88 0.74 - 1.35 mg/dL 08/03/2024 11:09 AM CERTIFIED NURSE PRACTITIONER DTL Estimated GFR (eGFR) >90 >=60 mL/min/BSA 08/03/2024 11:09 AM CERTIFIED NURSE PRACTITIONER DTL Comment: Estimated GFR calculated using the 2020 CKD_EPI creatinine equation. Blood (Blood, Venous) 08/03/2024 10:15 AM CERTIFIED NURSE PRACTITIONER 08/03/2024 10:52 AM CERTIFIED NURSE PRACTITIONER Julio Chadwick M.D. LAB BLOOD ADD-ON Final Res ult Performing Organization Address [facility] Co de Phone Number [facility] [address] [place] [address], [facility] [address] [place] [address] * ANCA (Antineutrophil Cytoplasmic Antibodies) Vasculitis Panel (07/31/2024 11:09 AM CERTIFIED NURSE PRACTITIONER) Pathologist [facility] [place] Myeloperoxidase Ab, S <0.2 <0.4 (Negative ) U 08/01/2024 9:06 AM CERTIFIED NURSE PRACTITIONER [facility] Proteinase 3 Ab (PR3), S <0.2 <0.4 (Negative ) U 08/01/2024 9:06 AM CERTIFIED NURSE PRACTITIONER [facility] Blood (Blood, Venous) 07/31/2024 11:09 AM CERTIFIED NURSE PRACTITIONER 08/01/2024 6:41 AM CERTIFIED NURSE PRACTITIONER Yudi Gunn APRN, C.N.P., D.N.P. LA B BLOOD ADD-ON Final Result Performing Organization Address [facility] Co de Phone Number [facility] [address] [place] [address] [facility] [address] [place] [address] * (ABNORMAL) Urinalysis with Microscopic if Indicated (07/31/2024 11:07 AM CERTIFIED NURSE PRACTITIONER) Source Urine, Urine, Midstream 07/31/2024 11:17 AM CERTIFIED NURSE PRACTITIONER FB60 Clarity Clear Clear 07/31/2024 11:20 AM CERTIFIED NURSE PRACTITIONER FB60 Color Yellow 07/31/2024 11:20 AM CERTIFIED NURSE PRACTITIONER FB60 Comment: ----REFERENCE VALUE---- Colorless Yellow [place] Blood Negative Negative 07/31/2024 11:20 AM CERTIFIED NURSE PRACTITIONER FB60 Nitrite Negative Negative 07/31/2024 11:20 AM CERTIFIED NURSE PRACTITIONER FB60 Leukocyte Esterase Negative Negative 07/31/2024 11:20 AM CERTIFIED NURSE PRACTITIONER FB60 Protein Negative mg/dL 07/31/2024 11:20 AM CERTIFIED NURSE PRACTITIONER FB60 Comment: ----REFERENCE VALUE---- Negative Trace Glucose 100(A) Negative mg/dL 07/31/2024 11:20 AM CERTIFIED NURSE PRACTITIONER FB60 Ketones, QI(U) Negative Negative mg/dL 07/31/2024 11:20 AM CERTIFIED NURSE PRACTITIONER FB60 Bilirubin Negative Negative 07/31/2024 11:20 AM CERTIFIED NURSE PRACTITIONER FB60 pH 6.0 5.0 - 8.0 07/31/2024 11:20 AM CERTIFIED NURSE PRACTITIONER FB60 Specific [place] 1.010 1.001 - 1.035 07/31/2024 11:20 AM CERTIFIED NURSE PRACTITIONER FB60 Urobilinogen 0.2 0.2 - 1.0 mg/dL 07/31/2024 11:20 AM CERTIFIED NURSE PRACTITIONER FB60 Urine (Urine, Midstream) 07/31/2024 11:07 AM CERTIFIED NURSE PRACTITIONER 07/31/2024 11:17 AM CERTIFIED NURSE PRACTITIONER us Yudi Gunn APRN, C.N.P., D.N.P. LA B URINE ORDERABLES Final Result Performing Organization Address [facility]/State/ZIP Co de Phone Number [facility] [address] [place] [address], [facility] FB60 [facility] [place] [address] [place] [address] * Lipid Panel (04/03/2024 12:09 PM CDT) Pathologist [facility] [place] Triglycerides 100 mg/dL 04/03/2024 2:51 PM CDT [...] D.N.P. LA B BLOOD ADD-ON Final Result [facility] [address] [place] [address], [facility] [place] [address] [place] [address] * (ABNORMAL) Basic Metabolic Panel (04/03/2024 12:09 [...] PM CDT Yudi Gunn APRN, C.N.P., D.N.P. [place] BLOOD ADD-ON Final Result [facility] [address] [place] [id number], [facility] [place] [address] [place] [phone] from Last 3 Months or Most Recently Relevant to Health Maintenance Insurance MEDICARE [facility] Care Teams Cosmetologist Apprentice Relationship Specialty Start Date End Date Martin-Yudi Weaver APRN, C.N.P., D.N.P. [address] [place] [phone] PCP - General Family Medicine 12/05/23 [facility] Ophthalmology 04/03/24
--- OUTSIDE RECORDS SUMMARY | 2024-10-01 09:38 | XMS_ITS | Clinical Summary ---
Author Organization [facility] Address [address] [place] [address] Care Team Providers Care Change Control Coordinator Name Role Phone Md Trudy Primary Care Provider Unavailabl e Source Comments You are receiving this document as you are listed as the primary care provider,follow-up provider, or the patient has been referred to you for consultation.This is in compliance with the Medicare andA[facility] Centercaid EHR Incentive Program,which states Providers who transition their patient to another setting of careor provider of care or refers their patient to another provider of care shouldprovide summary care record for each transition of care or referral. [facility] Allergies No known active allergies Medications Medication Sig Dispensed Refills Start Date End Date Status insulin glargine (BASAGLAR) 100 UNIT/ML KWIKPEN Inject 30 Units subcutaneously daily at bedtime. 06/20/2018 Active metFORMIN XR (GLUCOPHAGE XR) 500 MG 24 hour release tablet Take 1,500 mg by mouth every evening with a meal. 02/01/2022 Active hydrOXYzine HCl (ATARAX) 10 MG tablet Take 1-3 Tablets (10-30 mg) by mouth at bedtime as needed for Anxiety or Other (insomnia). 90 Tablet 2 12/21/2023 Active losartan (COZAAR) 50 MG tablet Take 1 Tablet (50 mg) by mouth daily. Active ziprasidone (GEODON) 80 MG capsule Take 1 Capsule (80 mg) by mouth two times a day with meals. 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 Overview (05/18/2017): Major depressive disorder, recurrent episode, severe, specified as with psychotic behavior (HRC) Posttraumatic stress disorder 04/23/2011 Social History Tobacco Use Types Packs/Day Years Used Date Smoking Tobacco: Every Day Cigarettes Smokeless Tobacco: Former PHQ-2 Answer Date Recorded PHQ-2 Score 5 02/17/2022 Sex and Gender Information Value Date Recorded Sex Assigned at Not on file Gender Identity Not on file Sexual Orientation Not on file Last Filed Vital Signs Vital Sign Reading Time Taken Comments Blood Pressure 135/78 06/06/2024 2:41 PM CDT Pulse 93 06/06/2024 2:41 PM CDT Temperature - - Respiratory Rate - - Oxygen Saturation - - Inhaled Oxygen Concentration - - Weight 96.6 kg (213 lb) 06/06/2024 2:41 PM CDT Height 182.9 cm (6') 01/11/2024 1:50 PM CDT Body Mass Index 28.89 01/11/2024 1:50 PM CDT Plan of Treatment Health Maintenance Due Date Last Done Comments Colon Cancer Screening Plan Due 1960 Diabetes: Creatinine 1960 Diabetes: Eye Exam 1960 Diabetes: Foot Exam 1960 Diabetes: Lipid Panel 1960 Diabetes: Urine Microalbumin 1960 Hep C Screening (Preventive Services) 1960 Medicare Annual Wellness Visit 1960 PSA Screening Discussion 1960 HIV Screening (Preventive Services) 1976 Pneumococcal (2 - PCV) 10/09/2013 10/09/2012, 2007 Zoster/Shingles (2 of 2) 05/16/2022 03/21/2022 Diabetes: HGBA1C 03/08/2024 09/07/2023, , 05/13/2023, Additional history exists COVID-19 Vaccine (3 - 2023- season) 2024 11/11/2021, 10/12/2021 Influenza (#1) 2024 06/16/2020, 03/2020, 09/13/2018, Additional history exists DTaP/Tdap/Td (3 - Tdap) 03/21/2032 03/21/2022, 03/31 RSV (1 - 1-dose 75+ series) 2035 HepA Aged Out No longer eligi ble based on patient's age to complete this topic HepB Aged Out No longer eligi ble based on patient's age to complete this topic Hib Aged Out No longer eligi ble based on patient's age to complete this topic IPV (Polio) Aged Out No longer eligi ble based on patient's age to complete this topic MCV4 Aged Out No longer eligi ble based on patient's age to complete this topic Care Teams Change Control Coordinator Relationship Specialty Start Date End Date Md Trudy PCP - General 05/21/11
--- OUTSIDE RECORDS SUMMARY | 2024-10-01 09:38 | XMS_ITS | Clinical Summary ---
Author Organization [facility] Address [place], [place] [address] Care Team Providers Care Operations Research Engineer Name Role Phone Yudi Gunn COMPETENCY EVALUATED NURSE AIDE Primary Care Provi zarina Allergies No known active allergies Medications lancets Test 3 times per day. Machine is a [employer] Plus GT 1 Each prn 012 Active sildenafil citrate (VIAGRA) 100 mg tabletIndicatio ns:ED (erectile dysfunction) of organic origin Take 1 Tablet by mouth once daily if needed for Erectile Dysfunction. Take 30min to 4 hours before sexual activity. Max 100mg/24hr. 10 tablet. 3 021 Active Graduated Compression StockingsIndica tions:Bilateral lower extremity edema For personal use. Length: calf Strength: 16-20 mmHg 1 Packet 022 Active CaneIndications :Ulcer of right foot, limited to breakdown of skin (HC),Type 2 diabetes mellitus with right diabetic foot infection (HC) Single Point Cane for home use. For lifelong use 1 Each 022 Active blood-glucose meterIndication s:Controlled type 2 diabetes mellitus without complication, with long-term current use of insulin (HC) As directed. Dispense meter that matches his test strips. 1 Each 023 Active ziprasidone (GEODON) 40 mg capsule Take 40 mg by mouth once daily with a meal. 023 Active durable medical equipment (DME)Indication s:Diabetic ulcer of left midfoot associated with type 2 diabetes mellitus, with fat layer exposed (HC) SQUARED TOE POST OP SHOE, LARGE, REF: [phone] 1 Each 023 Active durable medical equipment (DME)Indication s:Diabetic ulcer of right midfoot associated with type 2 diabetes mellitus, with fat layer exposed (HC) SQUARE TOE POST OP SHOE, LARGE, REF: [phone] 1 Each 023 Active blood sugar diagnostic (Accu-Chek Guide test strips) stripIndication s:Controlled type 2 diabetes mellitus without complication, with long-term current use of insulin (HC) Tests once daily 100 Each 3 024 Active losartan (COZAAR) 50 mg tabletIndicatio ns:Hypertension Take 1 Tablet (50 mg) by mouth once daily. 90 Tablet 3 024 Active metFORMIN (GLUCOPHAGE XR) 500 mg Extended-Releas e tabletIndicatio ns:Controlled type 2 diabetes mellitus without complication, with long-term current use of insulin (HC) Take 3 Tablets (1,500 mg) by mouth once daily with evening meal. 270 Tablet 024 Active Basaglar KwikPen U-100 Insulin 100 unit/mL (3 mL) penIndications: Controlled type 2 diabetes mellitus without complication, with long-term current use of insulin (HC) INJECT 30 UNITS UNDER THE SKIN BEFORE BEDTIME 60 mL 024 Active ziprasidone (GEODON) 80 mg capsule Take 1 Capsule by mouth two times daily with meals. Active famotidine (PEPCID) 20 mg tablet 024 Active durable medical equipment (DME)Indication s:Diabetic ulcer of left midfoot associated with type 2 diabetes mellitus, with fat layer exposed (HC) SQUARED TOE POST OP SHOE, LARGE, REF: [phone] 1 Each 024 Active durable medical equipment (DME)Indication s:Diabetic ulcer of right midfoot associated with type 2 diabetes mellitus, with fat layer exposed (HC) XP DIABETIC WALKER SYSTEM, LARGE, REF: [id number] 1 Each 024 Active triamcinolone (ARISTOCORT; KENALOG) 0.1 % creamIndication s:Rash APPLY CREAM EXTERNALLY TO AFFECTED AREA TWICE DAILY 30 g 024 Active pen needle (BD Insulin Pen Needle UF) 29 gauge x 1/2 (disposable insulin pen needle)Indicati ons:Uncontrolle d type 2 diabetes mellitus with hypoglycemia without coma (HC) FOR ADMINISTERING INSULIN AT HOME 100 Each 12/20/2 024 Active levoFLOXacin (LEVAQUIN) 750 mg tabletIndicatio ns:bone infection,skin and skin structure infection Take 1 Tablet (750 mg) by mouth once daily. 14 Tablet Active oxyCODONE (ROXICODONE) 5 mg immediate release tabletIndicatio ns:Diabetic ulcer of right midfoot associated with type 2 diabetes mellitus, with bone involvement without evidence of necrosis (HC) Take 1 Tablet (5 mg) by mouth every 4 hours if needed for Pain. 15 Tablet Active Insulin [place], Disposable, (BD Insulin Pen Needle UF) 29 gauge x 1/2Indications :Uncontrolled type 2 diabetes mellitus with hypoglycemia without coma (HC) For administering insulin at home 100 Each 3 023 2023 Discontinued triamcinolone (ARISTOCORT; KENALOG) 0.1 % creamIndication s:Rash Apply topically to affected area(s) two times daily. 30 g 024 2023 Discontinued clindamycin (CLEOCIN) 300 mg capsuleIndicati ons:skin and skin structure infection Take 1 Capsule (300 mg) by mouth three times daily. 30 Capsule 024 2024 Discontinued(* Patient states no longer taking) minocycline (MINOCIN) 100 mg capsule Take 100 mg by mouth once daily. 2023 oxyCODONE (ROXICODONE) 5 mg immediate release tabletIndicatio ns:Diabetic ulcer of left midfoot associated with type 2 diabetes mellitus, with bone involvement without evidence of necrosis (HC) Take 1 Tablet (5 mg) by mouth every 4 hours if needed for Pain. 20 Tablet 08/20/20 24 12:58 PM DRY STARCH OPERATOR 2024 Discontinued(R eorder (E-cancel not sent)) doxycycline monohydrate 100 mg tabletIndicatio ns:skin and skin structure infection Take 1 Tablet (100 mg) by mouth two times daily for 14 days. 28 Tablet 024 2023 Discontinued(R eorder (E-cancel not sent)) doxycycline monohydrate 100 mg tabletIndicatio ns:skin and skin structure infection Take 1 Tablet (100 mg) by mouth two times daily. 28 Tablet 024 2024 Discontinued(* Patient states no longer taking) levoFLOXacin (LEVAQUIN) 750 mg tabletIndicatio ns:bone infection,skin and skin structure infection Take 1 Tablet (750 mg) by mouth once daily for 14 days. 14 Tablet 024 2024 Discontinued(R eorder (E-cancel not sent)) Active Problems Problem Noted Date Diagnosed Date Encounter for colonoscopy du e to history of adenomatous colonic polyps 07/23/2024 Primary hypertension 03/19/2022 Insulin dependent type 2 diabetes mellitus 03/17 Cellulitis of right foot 03/17/2022 Right foot ulcer 03/17/2022 Retention of urine 02/12/2022 Primary erectile dysfunction 10/15/2021 Benign prostatic hyperplasia with urinary obstru ction 02/18/2021 Closed fracture of transvers e process of lumbar vertebra with routine healing 02/05/2021 Hip hematoma, left, initial encounter 02/05/2021 Multiple fractures of rib involving four or more ribs 02/05/2021 Schizophrenia 08/05/2014 GERD (gastroesophageal reflux disease) 4 Personal history of colonic polyps 11/01/2012 Generalized anxiety disorder 08/14/2012 Tobacco use disorder 09/14/2011 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 04/23/2011 Overview (09/13/2018): Overview: Major depressive disorder, recurrent episode, severe, specified as with psychotic behavior ([facility]) Posttraumatic stress disorder 04/23/2011 Gastroparesis due to DM Type 2 diabetes mellitus with right diabetic lilli t infection Resolved Problems Problem Noted Date Diagnosed Date Resolved Date Diabetes type 2, uncontrolled 08/05/2014 03/17/2022 DIABETES 08/16/2002 09/13/2018 Encounters Date Type Department Care Team Description 09/28/2024 11:30 AM DRY STARCH OPERATOR Office Visit [facility] [address] [place] [address] Luz Elena Gallego PA Pre-Op Exam (10/01/24 Partial amputation rt big toe ) 09/27/2024 11:15 AM DRY STARCH OPERATOR Office Visit [facility] [place] [address] [place] [phone] Alberto Floyd, DPM Follow Up (Bilateral foot ulcer check) 09/27/2024 Travel 09/18/2024 10:15 AM DRY STARCH OPERATOR Office Visit [facility] [place] [address] [place] [phone] Alberto Floyd, DPM Post-op (Right foot, DOS 08/17/24) 09/18/2024 Travel 09/17/2024 Telephone [facility] [address] [place] [address] Alberto Floyd, DPM Questions 09/17/2024 Telephone [facility] [address] [place] [address] Alberto Floyd, DPM Questions (discomfort ) 09/16/2024 Orders Only [facility] [place] [address] [place] [phone] Alberto Floyd, DPM <No scans attached> 09/14/[address] [place] [phone] Radhames Casas MD Refill Request (Basaglar, Pen needle, Triamcinolone) 09/13/2024 11:15 AM DRY STARCH OPERATOR Office Visit [facility] [address] [place] [address] [place] [phone] Alberto Floyd, DPM Follow Up (BILATERAL FOOT ULCER/) 09/13/2024 Travel 09/07/[address] [place] [phone] Radhames Casas MD Refill Request (Triamcinolone, Bd Insulin Pen Needle Uf) 09/06/2024 10:30 AM DRY STARCH OPERATOR Office Visit [facility] [place] [address] [place] [phone] Alberto Floyd R, DPM Post-op (Bilateral foot, DOS 08/17/24, 3 week post op) 09/06/2024 Travel 09/04/2024 Telephone [facility] [address] [facility] [place] [address] Alberto Floyd, DPM Questions 08/30/2024 11:30 AM DRY STARCH OPERATOR Office Visit [facility] [place] [address] [place] [phone] Alberto Floyd, DPM Post-op (Bilateral foot, DOS 08/17/24, 2 week post op ) 08/30/2024 Travel 08/21/2024 10:45 AM DRY STARCH OPERATOR Office Visit [facility] [place] [address] [place] [phone] Alberto Floyd, DPM Post-op (Bilateral foot, DOS 08/17/24, initial post op) 08/21/2024 Travel 08/17/2024 7:35 AM DRY STARCH OPERATOR - 08/17/2024 9:45 AM DRY STARCH OPERATOR Surgery [facility] [address] [place] [address] Alberto Floyd, DPM EXCISION 5th METATARSAL HEAD- LEFT 08/17/2024 7:24 AM DRY STARCH OPERATOR Anesthesia Event [facility] [address] [place] [address] Donn Isaacs, Jeni Linton, THANH 08/17/2024 6:14 AM DRY STARCH OPERATOR - 08/17/2024 10:15 AM DRY STARCH OPERATOR Hospital Encounter [facility] [address] [place] [address] Alberto Floyd R, DPM Diabetic ulcer of left midfoot associated with type 2 diabetes mellitus, with bone involvement without evidence of necrosis (HC) (Primary Dx) Discharge Disposition: Home Self Care 08/16/2024 11:00 AM DRY STARCH OPERATOR Office Visit [facility] [address] [place] [phone] Alberto Floyd R, DPM Follow Up (Bilateral foot, ulcer check) 08/16/2024 Travel 08/09/2024 2:40 PM DRY STARCH OPERATOR Orders Only [facility] [address] [facility] [place] [phone] Lab, Michelle Lab 08/09/2024 10:45 AM DRY STARCH OPERATOR Office Visit [facility] [address] [place] [phone] Alberto Floyd R, DPM Ulcer (Follow up-bilateral foot) 08/09/2024 Travel 08/08/2024 Telephone [facility] [address] [place] [address] Alberto Floyd, DPM FOOT (PROCEDURE ) 08/02/2024 11:00 AM DRY STARCH OPERATOR Office Visit [facility] [address] [place] [phone] Alberto Floyd R, DPM Ulcer (Follow up-bilateral foot ) 08/02/2024 Travel 07/25/2024 Telephone [facility] [address] [place] [address] Alberto Floyd R, DPM WOUND SUPPLIES 07/19/2024 10:15 AM CDT Office Visit [facility] [address] [place] [phone] Alberto Floyd R, DPM Ulcer (Follow up-bilateral foot) 07/19/2024 Travel 07/12/2024 10:45 AM CDT Office Visit [facility] [address] [place] [phone] Alberto Floyd R, DPM Ulcer (Follow up-bilateral foot) 07/12/2024 Travel 07/10/2024 3:00 PM CDT - 07/10/2024 3:50 PM CDT Surgery [facility] [address] [place] [address] Deepika Wilson, COLONOSCOPY WITH POLYPECTOMY 07/10/2024 2:37 PM CDT Anesthesia Event [facility] [address] [place] [address] Donn Isaacs, Jeni Linton, ACADEMIC PROGRAM SPECIALIST 07/10/2024 1:58 PM CDT - 07/10/2024 4:10 PM CDT Hospital Encounter [facility] [address] [place] [address] Deepika Wilson, Discharge Disposition: Home Self Care 07/05/2024 8:15 AM CDT Office Visit [facility] [place] [address] [phone] Alberto Floyd, DPM Ulcer (Follow up-bilateral foot) 07/05/2024 Travel from Last 3 Months Immunizations Name Administration Dates Next Due COVID-19 vaccine (Grata 10mcg/0.2mL) PEDS 5-11 YO PF, MDV 10/14/2021 Influenza, IIV3 (Age >=3 years) 10/09/19 13,12/05/2007,07/21/2004,2002 Influenza, IIV4 06/16/2020, 0,09/13/2018,2013 Pneumococcal Poly,23-Valent (Pneumovax) 10/09/2012,12/05/2007 Tdap 03/21/2022,03/31/2007 Zoster (Shingrix-RZV, recombinant) 03/21/2022 Family History Medical History Relation Name Comments Good Health Mother Relation Name Status Comments Father Mother Alive Social History Tobacco Use Types Packs/Day Years Used Date Smoking Tobacco: Former Cigarettes Q uit: 12/01/2020 Passive Smoke Exposure: Past Smokeless Tobacco: Former Tobacco Cessation:Counseling Given: Yes Alcohol Use Standard Drinks/Week Comments Yes 6 (1 standard drink = 0.6 oz pur e alcohol) social [facility] Utilities Answer Date Recorded Do you have trouble paying f or utilities (for example, heat, electricity, water, phone)? Yes 09/28/2024 PHQ-2 Answer Date Recorded PHQ-2 TOTAL SCORE 4 02/11/2023 Social Connections Answer Date Recorded Do you often feel lonely or isolated from those around you? 0 09/28/2024 Financial Resource Strain Answer Date R ecorded Difficulty of Paying Living Expenses 3 09/28/2024 Difficulty of Paying Living Expenses Not on file 09/28/2024 Food Insecurity Answer Date Recorded Do you worry your food will run out before you are able to buy more? 1 09/28/2024 Transportation Needs Answer Date Record ed Does lack of transportation keep you from medica l appointments? 1 09/28/2024 Does lack of transportation keep you from work, meetings or getting things that you need? 1 09/28/2024 Housing Stability Answer Date Recorded What is your housing situation today? 1 09/28/2024 Interpersonal Safety Answer Date Record ed Are you being hit, kicked, p ushed or yelled at (see row info)? No 06/23/2024 Interpersonal Safety Abuse 12 - 18 Not on file 06/23/2024 Interpersonal Safety Ambulatory Vulnerability No t on file 06/23/2024 Sex and Gender Information Value Date Recorded Sex Assigned at Not on file Legal Sex Male 5:23 AM DRY STARCH OPERATOR Gender Identity Not on file Sexual Orientation Not on file Occupation Industry Job Start Date Job End Date disability Not on file Not on file Not on file Obstetrics History Last Filed Vital Signs Vital Sign Reading Time Taken Comments Blood Pressure 134/83 09/28/2024 11:38 AM DRY STARCH OPERATOR Pulse 105 09/28/2024 11:38 AM DRY STARCH OPERATOR Temperature 36.6 C (97.8 F) 09/28/2024 11:38 AM DRY STARCH OPERATOR Respiratory Rate 16 08/17/2024 9:15 AM DRY STARCH OPERATOR Oxygen Saturation 99% 09/28/2024 11:38 AM DRY STARCH OPERATOR Inhaled Oxygen Concentration - - Weight 96.2 kg (212 lb) 09/28/2024 11:38 AM DRY STARCH OPERATOR Height 182.9 cm (6') 08/17/2024 6:36 AM DRY STARCH OPERATOR Body Mass Index 28.75 08/17/2024 6:36 AM DRY STARCH OPERATOR Plan of Treatment Upcoming Encounters Date Type Department Care Team (Late st Contact Info) Description 10/04/2024 11:15 AM DRY STARCH OPERATOR Office Visit [facility] [address] [place] [phone] Alberto Floyd, RADHAM [address] [place] [address] 10/11/2024 11:15 AM DRY STARCH OPERATOR Office Visit [facility] [address] [place] [phone] Alberto Floyd DPM [address] [place] [address] 10/18/2024 11:15 AM DRY STARCH OPERATOR Office Visit [facility] [address] [place] [phone] Alberto Floyd DPM [address] [place] [address] 10/25/2024 11:15 AM DRY STARCH OPERATOR Office Visit [facility] [address] [place] [phone] Alberto Floyd DPM [address] [place] [address] 10/30/2024 11:00 AM DRY STARCH OPERATOR Office Visit [facility] [address] [place] [phone] Alberto Floyd DPM [address] [place] [address] 11/08/2024 11:15 AM DRY STARCH OPERATOR Office Visit [facility] [address] [place] [phone] Alberto Floyd DPM [address] [place] [address] 11/15/2024 11:00 AM DRY STARCH OPERATOR Office Visit [facility] [address] [place] [phone] Albreto Floyd DPM [address] [place] [address] 11/22/2024 11:15 AM DRY STARCH OPERATOR Office Visit [facility] [address] [place] [phone] Alberto Floyd DPM [address] [place] [address] 11/29/2024 11:15 AM DRY STARCH OPERATOR Office Visit [facility] [address] [place] [phone] Alberto Floyd DPM [address] [place] [address] Health Maintenance Due Date Last Done Comments HIV for age 15-65 1975 Hepatitis C screening for ag e 18-79 1978 Pneumococcal series for age 50+ (2 of 2 - PCV) 10/09/2013 10/09/2012, 12/05/2007 RSV vaccine for adults or (1 - Risk 60-74 years 1-dose series) 2020 Zoster (shingles) series for age 50+ (2 of 2) 05/16/2022 03/21/2022 Depression screening for age 12+ 02/12/2024 02/11/2023, 02/11/2023, 03/04/2022, Additional history exists COVID-19 vaccine series ( season) 2024 10/14/2021 Influenza for age 50-64 05/27/2024 06/16/20, 10/02/2019, 09/13/2018, Additional history exists BMI (ht and wt on same day) for age 18+ 09/07/2024 09/07/2023, 06/17/2023, 06/08/2023, Additional history exists Lipids for age 45-75 01/07/2027 01/07/2022, 09/14/2019, 03/14/2017, Additional history exists Colonoscopy through age 75 07/10/202907/10, 02/28/2019, 02/06/2016, Additional history exists Tetanus booster 03/21/2032 03/21/2022, 02/2007, 03/31/2007 Tdap Completed 03/21/2022, 03/31/2007 Goals Goal Patient Goal Type Associated Problems Recent Progress Patient-Stated? Author Food - Increase security Diet No Amna Mota, RN Note: Goal identified during: Initial Screening Status: In Progress Barriers to goal achievement: none identified Patient steps toward goal achievement: active Navigator steps to support goal achievement: active Proposed timeline for goal completion: 1 month Notes: n/a Date of follow up: 1 week Housing - Increase Stability General No Amna Mota, RN Note: Goal identified during: Initial Screening Status: In Progress Barriers to goal achievement: none identified Patient steps toward goal achievement: active Navigator steps to support goal achievement: active Proposed timeline for goal completion: 1 month Notes: n/a Date of follow up: 1 week Utility Payments - Increase capacity to make General No Amna Mota, RN Note: Goal identified during: Initial Screening Status: In Progress Barriers to goal achievement: none noted Patient steps toward goal achievement: active Navigator steps to support goal achievement: active Proposed timeline for goal completion: active Notes: n/a Date of follow up: 1 week Medical Devices Implanted Type Area Plate Glass Grinder Device Identifier Shelf Expiration Date Model / Serial / Lot Cytal Wound Matrix 3-Layer Implanted:Qty: 1 on 08/17/2024 by Alberto Floyd DPM at [facility] Left: Foot [employer] 04/25/2025 [id number] / [id number] / [id number] Procedures Procedure Name Priority Date/Time Associated Diagnosis Comments POTASSIUM Routine 09/28/2024 11:58 AM DRY STARCH OPERATOR Pre-op evaluation PATH TISSUE EXAM Routine 09/13/2024 11:5 1 AM DRY STARCH OPERATOR Diabetic ulcer of right midfoot associated with type 2 diabetes mellitus, with bone involvement without evidence of necrosis (HC) AEROBIC BACTERIAL CULTURE, STAIN Routine 09/13/2024 11:51 AM DRY STARCH OPERATOR Diabetic ulcer of right midfoot associated with type 2 diabetes mellitus, with bone involvement without evidence of necrosis (HC) PATH TISSUE EXAM Today 08/17/2024 7:54 AM DRY STARCH OPERATOR [place] DEBRIDEMENT SUBCUTANEOUS TISSUE 20 SQ CM/< Class D Urgent 08/17/2024 7:09 AM DRY STARCH OPERATOR Diabetic ulcer of right midfoot associated with type 2 diabetes mellitus, with fat layer exposed (HC) Diabetic ulcer of left midfoot associated with type 2 diabetes mellitus, with bone involvement without evidence of necrosis (HC) Case Notes integra bilayer graft - roula will be here for case and bringing graft in am - 08/16Daniel aware of 730 start-08/10 EXCISION METATARSAL HEAD Class D Urgent 08/17/2024 7:09 AM DRY STARCH OPERATOR Diabetic ulcer of right midfoot associated with type 2 diabetes mellitus, with fat layer exposed (HC) Diabetic ulcer of left midfoot associated with type 2 diabetes mellitus, with bone involvement without evidence of necrosis (HC) Case Notes integra bilayer graft - roula will be here for case and bringing graft in am - 08/16Daniel aware of 730 start-08/10 GLUCOSE METER Routine 08/17/2024 6:43 AM DRY STARCH OPERATOR AEROBIC BACTERIAL CULTURE, STAIN Routine 08/09/2024 11:50 AM DRY STARCH OPERATOR Diabetic ulcer of right midfoot associated with type 2 diabetes mellitus, with fat layer exposed (HC) PATH TISSUE EXAM Today 07/10/2024 3:13 PM CDT COLONOSCOPY WITH POLYPECTOMY 07/10/2024 2:37 PM CDT Screen for colon cancer COLONOSCOPY 07/10/2024 2:31 PM CDT GLUCOSE METER Routine 07/10/2024 2:29 PM CDT LIPID PANEL Routine 01/07/2022 5:06 PM CDT Uncontrolled type 2 diabetes mellitus with hyperglycemia (HC) from Last 3 Months or Most Recently Relevant to Health Maintenance Results * POTASSIUM (09/28/2024 11:58 AM DRY STARCH OPERATOR) POTASSIUM 4.5 3.5 - 5.3 mmol/L [facility] nicol Sanchez Blood BLOOD SPECIMEN / Unknown 09/28/2024 11:58 AM DRY STARCH OPERATOR 09/28/2024 11:59 AM DRY STARCH OPERATOR Luz Elena PERRY CHEMISTRY Final Result [employer] [facility] [address] [place] [address], [facility] [address] [place] [address] * (ABNORMAL) AEROBIC BACTERIAL CULTURE, STAIN (09/13/2024 11:51 AM DRY STARCH OPERATOR) Only the most recent of2 resultswithin the time period is included. CULTURE RESULT(A) 09/17/2024 12:44 PM DRY STARCH OPERATOR [facility] CULTURE 4+ Escherichia coli 09/17/2024 12:44 PM DRY STARCH OPERATOR [facility] CULTURE 4+ Klebsiella oxytoca 09/17/2024 12:44 PM DRY STARCH OPERATOR [facility] CULTURE 2+ Mixed narinder present 09/17/2024 12:44 PM DRY STARCH OPERATOR [facility] GRAM STAIN No PMNs 09/17/2024 12:44 PM DRY STARCH OPERATOR [facility] GRAM STAIN No Epithelial cells 09/17/2024 12:44 PM DRY STARCH OPERATOR [facility] GRAM STAIN No RBCs 09/17/2024 12:44 PM DRY STARCH OPERATOR [facility] GRAM STAIN 2+ Gram Negative Bacilli 09/17/2024 12:44 PM DRY STARCH OPERATOR [facility] GRAM STAIN 1+ Gram Positive Cocci 09/17/2024 12:44 PM DRY STARCH OPERATOR [facility] Other (Other) Non-Blood / Unknown 09/13/2024 11:51 AM DRY STARCH OPERATOR 09/13/2024 3:09 PM DRY STARCH OPERATOR [facility] LABORATORY - 09/17/2024 12:44 PM DRY STARCH OPERATOR Mixed narinder; No Staphylococcus aureus, beta-Streptococcus, Streptococcus pneumoniae, or Pseudomonas aeruginosa isolated. Organism Antibiotic Method Susceptibility Escherichia coli TRIMETHOPRIM/SULF <=10/14: S Escherichia coli AMPICILLIN 4: S Escherichia coli CEFAZOLIN 2: S Escherichia coli GENTAMICIN <=1: S Escherichia coli CEFTRIAXONE <=0.25: S Escherichia coli CEFTAZIDIME <=0.5: S Escherichia coli LEVOFLOXACIN <=0.12: S Escherichia coli CIPROFLOXACIN <=0.06: S Escherichia coli PIPERACILLIN/TAZO <=4: S Escherichia coli AMPICILLIN/SULBACTAM <=2: S Escherichia coli CEFEPIME <=0.12: S Escherichia coli MEROPENEM <=0.25: S Klebsiella oxytoca TRIMETHOPRIM/SULF <=10/14: S Klebsiella oxytoca AMPICILLIN >=32: R Klebsiella oxytoca CEFAZOLIN >=32: R Klebsiella oxytoca GENTAMICIN <=1: S Klebsiella oxytoca CEFTRIAXONE <=0.25: S Klebsiella oxytoca CEFTAZIDIME <=0.5: S Klebsiella oxytoca LEVOFLOXACIN <=0.12: S Klebsiella oxytoca CIPROFLOXACIN <=0.06: S Klebsiella oxytoca PIPERACILLIN/TAZO <=4: S Klebsiella oxytoca AMPICILLIN/SULBACTAM 8: S Klebsiella oxytoca CEFEPIME <=0.12: S Klebsiella oxytoca MEROPENEM <=0.25: S Albertovonda Floyd DPM MICROBIOLOGY Final Res ult [facility] [address] [place] [address], * PATH TISSUE EXAM (09/13/2024 11:51 AM DRY STARCH OPERATOR) Only the most recent of3 resultswithin the time period is included. Case Report Pathology Report Case: [id number] Authorizing Provider: Alberto Floyd DPM Collected: 09/13/2024 1151 Ordering Location: [facility], Received: 09/14/2024 0823 [facility] [place] Pathologist: Kosta Rodney MD Specimen: Right foot 09/21/2024 10:25 AM [facility] [employer] [facility] Final Diagnosis A) SOFT TISSUE AND BONE, RIGHT FOOT ULCER, EXCISIONAL DEBRIDEMENT: 1. Necrotic soft tissue and bone fragments with acute inflammation, bone erosion and remodeling, and abundant bacterial clusters, consistent with acute osteomyelitis 2. Negative for malignancy 09/21/2024 10:25 AM [facility] [employer] [facility] Clinical Information Right foot ulcer 09/21/2024 10:25 AM [facility] [employer] [facility] Gross Description A) Received in formalin, labeled with the patient's name and R foot, is a 0.9 x 0.6 x 0.4 cm soft tissue biopsy. There is a friable 0.9 x 0.6 x 0.4 cm granular brown-black lesion. The specimen is inked green, trisected and entirely submitted in one cassette. [facility] 09/17/2024 09/21/2024 10:25 AM [facility] [employer] [facility] Microscopic Description The final diagnosis is based on microscopic examination of appropriate sections of all specimens. The presence of green ink is confirmed on tissue sections. 09/21/2024 10:[address] [facility] Additional Information Interpreted at [facility] [employer] [facility] - [address], [place] [address] 09/21/2024 10:[address] Other (Right foot) Non-Blood / Unknown 09/13/2024 11:51 AM DRY STARCH OPERATOR 09/14/2024 8:23 AM DRY STARCH OPERATOR Alberto Floyd DPM PATHOLOGY/CYTOLOGY Final Result [facility] [address] [place] [address], [place] * (ABNORMAL) GLUCOSE METER (08/17/2024 6:43 AM DRY STARCH OPERATOR) Only the most recent of2 resultswithin the time period is included. GLUCOSE METER 149(H) 65 - 100 mg/dL 08/17/2024 6:43 AM DRY STARCH OPERATOR [facility] Blood BLOOD SPECIMEN / Unknown 08/17/2024 6:43 AM DRY STARCH OPERATOR 08/17/2024 6:43 AM DRY STARCH OPERATOR Alberto Floyd DPM CHEMISTRY Final Res ult [facility] [address] [place], [place] [id number] * COLONOSCOPY (07/10/2024 2:31 PM CDT) 07/10/2024 2:31 PM CDT Narrative Transcriptions Deepika Wilson DO - 07/20/2024 2:41 PM CDT Patient Name: Hector Sharp Procedure Date: 07/10/2024 Gender: Male Date of : 1960 Admit Type: Ambulatory Procedure: Colonoscopy Proceduralist: Deepika Wilson MD Referring MD: Yudi Gunn Indications/Pre-Op Diagnosis: High risk colon cancer surveillance:Personal history of colonic polyps Medications: Propofol per Anesthesia, MonitoredAnesthesia Care Procedure Description: The patient had risks, benefits and alternatives explained to andgave informed consent. The patient had a stable cardiopulmonary status and judged an adequate candidate for conscious sedation. The endoscope [id number] was passed through the anus andadvanced to the cecum, identified by appendiceal orifice and ileocecal valve.The colonoscopy was performed without difficulty. The patient toleratedthe procedure well. The quality of the bowel preparation was good. The ileocecal valve, appendiceal orifice, and rectum were photographed. Complications: No immediate complications. Estimated Blood Loss & Specimen: Estimated blood loss was minimal. Specimen collected - Yes and sent to Laboratory Findings: There was a skin lesion on the right gluteal distribution [id number] in size and appeared melanotic. No biopsies taken, but was discussed with patient and his at the end of the procedure. The perianal and digital rectal examinations were normal. Pertinent negatives include normal sphincter tone, no palpable rectal lesionsand normal stool Hemoccult. Two sessile polyps were found in the sigmoid colon. The polyps were 3to 5 mm in size. These polyps were removed with a hot snare. Resectionand retrieval were complete. Verification of patient identification forthe specimen was done. Estimated blood loss was minimal. The exam was otherwise without abnormality on direct and retroflexion views. Impressions/Post-Op Diagnosis: - Two 3 to 5 mm polyps in the sigmoid colon, removed with a hotsnare. Resected and retrieved. - The examination was otherwise normal on direct and retroflexionviews. Recommendation: - Patient has a contact number available for emergencies. The signsand symptoms of potential delayed complications were discussed with the patient. Return to normal activities tomorrow. Written discharge instructions were provided to the patient. - Discharge patient to home (ambulatory). - Resume previous diet. - Continue present medications. - Await pathology results. - Repeat colonoscopy in 5 years for surveillance based on pathology results. Deepika Wilson MD 07/20/2024 2:41:27 PM This report has been signed electronically. Note Initiated On: 07/10/2024 2:31 PM us Deepika Wilson DO PROCEDURE ORD Final Res ult * LIPID PANEL (01/07/2022 5:06 PM CDT) CHOLESTEROL,TOTAL 131 100 - 199 mg/dL 01/07/2022 6:27 PM CDT [facility] TRIGLYCERIDES 119 <150 mg/dL 01/07/2022 6:27 PM CDT [facility] HDL CHOLESTEROL 57 >40 mg/dL 6:27 PM CDT [facility] NON-HDL CHOLESTEROL 74 <145 mg/dl 01/07/2022 6:27 PM T [facility] CHOL/HDL RATIO 2.30 <4.50 01/07/2022 6:27 PM CDT [facility] LDL CHOLESTEROL 50 <=130 mg/dL 01/07/2022 6:27 PM T [facility] VLDL CHOLESTEROL 24 <=30 mg/dL 01/07/2022 6:27 PM T [facility] PROVIDER ORDERED STATUS RANDOM 01/07/2022 6:27 PM T [facility] Blood BLOOD SPECIMEN / Unknown Venipuncture / Unknown 01/07/2022 5:06 PM CDT 01/07/2022 5:08 PM CDT Radhames Casas MD CHEMISTRY Final Resul t [facility] [address] [place] [address] from Last 3 Months or Most Recently Relevant to Health Maintenance Insurance [employer] PPO MR [place] MR PB ONLY MEDICARE PART B HB ONLY [place] BL[place] HB ONLY MEDICARE PART A HB ONLY Advance Directives * Full Code (Latest Code Status on File) Date Activated Date Inactivated Comments 08/17/2024 6:19 AM 08/17/2024 1:00 PM Question Answer Comments Code Status Discussion: Reviewed Preferences * Full Code Date Activated Date Inactivated Comments 07/10/2024 2:00 PM 07/10/2024 6:10 PM Question Answer Comments Code Status Discussion: Discussed * Full Code Date Activated Date Inactivated Comments 03/17/2022 10:18 PM 03/21/2022 2:27 PM Question Answer Comments Code Status Discussion: Reviewed Preferences Care Teams Operations Research Engineer Relationship Specialty Start Date End Date Yudi Gunn FNP [address] [place] [id number] PCP - General Nurse Practitioner 06/22/24
--- OUTSIDE RECORDS SUMMARY | 2024-10-01 09:39 | XMS_ITS ---
Author Organization [facility] Address [address] [place] [address] Care Team Providers Care Charge Auditor Name Role Phone Unavailable Unavailable Unavailable Surgery Details Not on file Complications Check Surgery Details section. Procedure Estimated Blood Loss Check Surgery Details section. Procedure Findings Check Surgery Details section. Procedure Specimens Taken Check Surgery Details section.
--- OUTSIDE RECORDS SUMMARY | 2024-10-01 09:39 | XMS_ITS | Referral Summary ---
Author Organization [facility] Address [address] [place] [address] Care Team Providers Care Operational Intelligence Analyst Name Role Phone Yudi Gunn APRN, C.N.P., D.N.P. P [facility] Care Provider Source Comments Patient records contain information from all sites at [facility]. For routine questions regarding patient records, call [phone] during business hours, M-F 8:00 AM - 5:00 PM Central Time. Record requests for emergency care only can be directed to [phone] at any time.[facility] Encounters Date Type Department Care Team Description 09/27/2024 Clinical Communication Department of Family [facility] [place], [facility], in [address] [phone] Yudi Gunn APRN, C.N.P., D.N.P. Appt Request (Pre-op) 09/21/2024 Clinical Communication Department of Family Medicine, [facility], in [address] [phone] Yudi Gunn APRN, C.N.P., D.N.P. 09/12/2024 Orders Only Department of [facility], [facility], [address] [phone] Yudi Gunn APRN C.N.P., D.N.P. 09/11/2024 7:50 AM [facility] M[facility] - 09/11/2024 11:59 PM [facility] Hospital Encounter Department of Laboratory Medicine in [address] [phone] Yudi Gunn APRN, C.NTina, D.N.P. 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 Pain Shoulder Left 08/16/2024 2:30 PM [facility]IO MGR Office Visit Department of Family Medicine, [facility], in [place] [address] [place] [address] Bob Vela P.A.-C. Preoperative Exam (Primary Dx) 08/07/2024 8:20 AM [facility] MGR - 08/07/2024 11:59 PM [facility] M[facility] Hospital Encounter Department of Radiology in [address] [phone] Julio Gomez M.D. Personal History Of Diabetic Foot Ulcer; Wound Lower Limb Multiple Open Subsequent Left; Wound Lower Limb Multiple Open Subsequent Right Discharge Disposition: Home or Self Care 08/06/2024 7:38 AM [facility] MGR - 08/06/2024 11:59 PM [facility] MGR Hospital Encounter Department of Vascular Medicine in [place], [place] [address] [place] [address] Julio Chadwick M.D. 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 Personal History Of Diabetic Foot Ulcer; Stasis Ulcer Varicose Vein Right (HCC) Discharge Disposition: Home or Self Care 08/03/2024 1:20 PM [facility] MGR Ancillary Procedure Department of Vascular 08/03/2024 1:15 PM [facility] MGR Ancillary Procedure Department of Vascular 08/03/2024 12:05 PM [facility] MGR Ancillary Procedure Department of Vascular 08/03/2024 9:55 AM [facility] MGR - 08/03/2024 11:59 PM [facility] MGR Hospital Encounter Department of Laboratory Medicine and Pathology, [place], [place] [address] [place] [phone] Julio Chadwick M.D. Stasis Ulcer Varicose Vein Right (HCC) Discharge Disposition: Home or Self Care 08/03/2024 9:55 AM [facility] MGR - 08/03/2024 11:59 PM [facility] MGR Hospital Encounter Department of Laboratory Medicine and Pathology, [place], [place] [address] [place] [phone] Julio Chadwick M.D. Stasis Ulcer Varicose Vein Right (HCC) Discharge Disposition: Home or Self Care 08/03/2024 2:00 PM [facility] MGR Comprehensive Visit Department of Vascular Medicine in [place], [place] [address] [place] [phone] Julio Gomez M.D. 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 Stasis Ulcer Varicose Vein Right (HCC); Stasis Dermatitis Lower Extremity Bilateral; Personal History Of Diabetic Foot Ulcer; Diabetes Mellitus Type 2 Ulcer (HCC) Discharge Disposition: Home or Self Care 07/27/2024 Refill Department of [facility], in [address] [phone] Yudi Gunn APRN, C.N.P., D.N.P. Med Refill 07/13/2024 Refill Department of [facility], [facility], in [address] [phone] Yudi Gunn APRN C.N.PNata, D.N.P. Med Refill 07/13/2024 Refill Department of [facility], [facility], in [address] [phone] Yudi Gunn APRN C.N.P., D.N.P. Med Refill 07/04/2024 Clinical Communication Department of [facility], in [address] [phone] Yudi Gunn APRN C.N.P., D.N.P. Panda[employer] Form ([employer] DM Shoes/Inserts) 07/03/2024 Clinical Communication Department of [facility], in [address] [phone] Yudi Gunn APRN C.N.P., D.N.P. 07/03/2024 1:40 PM CDT Office Visit Department of [facility] in [place], [place] [address] [place] [phone] Maria A Doss APRN, C.N.P. Callus Thatcher Foot (Primary Dx); Diabetes Mellitus Type 2 Ulcer (HCC); Wound Foot Open Subsequent Left from Last 3 Months Allergies Active Allergy [...] Limb Multiple Open Subsequent Right 08/03/2024 Callus Thatcher Foot 07/03/2024 Overview (07/03/2024): Plantar aspect of [...] He is scheduled to see Podiatry at [facility] on . Diabetes Mellitus Type 2 Neuropathy [...] episode, severe, specified as with psychotic behavior ([facility]) Overview: Major depressive disorder, recurrent episode, severe, [...] drink = 0.6 oz pu re alcohol) [facility] Utilities Answer Date Recorded In the past 12 months has [employer], oil, or water [employer] threatened to shut off services in your [...] AM CDT Legal Sex Male 5:43 PM [facility] M[facility] Gender Identity Male 04/03/2024 10:02 AM CDT Sexual Orientation Choose not to disclose 2023 10:02 AM CDT Last Filed Vital Signs Vital Sign Reading Time Taken Comments Blood Pressure 130/87 08/16/2024 2:32 PM [facility] MGR Pulse 105 08/16/2024 2:32 PM [facility] MGR Temperature 36 C (96.8 F) 08/16/2024 2:25 PM [facility]IO MGR Respiratory Rate 16 08/16/2024 2:25 PM [facility] MGR Oxygen Saturation 97% 08/16/2024 2:25 PM [facility] MGR Inhaled Oxygen Concentration - - Weight 99.2 kg (218 lb 9.4 oz) 08/16/2024 2:25 P M [facility] Height 184 cm (6' 0.44) 08/16/2024 2:25 PM [facility] MGR Body Mass Index 29.29 08/16/2024 2:25 PM [facility] MGR Plan of Treatment Not on file Medical Devices Implanted Type Area Pigment Grinder Device Identifier Shelf Expiration Date Model / Serial / Lot Ocular Lens Ocular Lens Bilateral : Eye Procedures Procedure Name Priority Date/Time Associated Diagnosis Comments HEMOGLOBIN A1C, B Routine 09/11/2024 8:03 AM [facility] MGR 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) MR FOOT RIGHT WITHOUT AND WITH IV CONTRAST RAD - Routine (most inpatients and all outpatients) 08/07/2024 10:12 AM [facility] MGR Personal History Of Diabetic Foot Ulcer Wound Lower Limb Multiple Open Subsequent Right MR FOOT LEFT WITHOUT AND WITH IV CONTRAST RAD - Routine (most inpatients and all outpatients) 08/07/2024 10:12 AM [facility] MGR Personal History Of Diabetic Foot Ulcer Wound Lower Limb Multiple Open Subsequent Left LOWER EXTREMITY ARTERIAL (SHOBHA) - TCPO2 (WOUND) Routine 08/06/2024 9:30 AM [facility]IO MGR 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) VASCULAR IMAGE EXAM Routine 08/03/2024 1:20 PM [facility] MGR VASCULAR IMAGE EXAM Routine 08/03/2024 1:15 PM [facility] M[facility] VASCULAR IMAGE EXAM Routine 08/03/2024 12:05 PM [facility] MGR DIPSTICK, U Routine 08/03/2024 10:19 AM [facility] MGR PH, U Routine 08/03/2024 10:19 AM [facility] MGR OSMOLALITY, U Routine 08/03/2024 10:19 AM [facility] MGR MICROSCOPIC AUTOMATED Routine 08/03/2024 10:19 AM [facility] MGR URINALYSIS WITH MICROSCOPIC Routine 08/03/2024 10:19 AM [facility] MGR Stasis Ulcer Varicose Vein Right (HCC) IMMUNOGLOBULINS (IGG, IGA, AND IGM), S Routine 08/03/2024 10:15 AM [facility] MGR Stasis Ulcer Varicose Vein Right (HCC) RHEUMATOID FACTOR, S/P Routine 08/03/2024 10:15 AM [facility] MGR Stasis Ulcer Varicose Vein Right (HCC) CRYOGLOBULIN, S Routine 08/03/2024 10:15 AM [facility] MGR Stasis Ulcer Varicose Vein Right (HCC) COMPLEMENT C4, S Routine 08/03/2024 10:15 AM [facility]IO MGR Stasis Ulcer Varicose Vein Right (HCC) COMPL C3, S Routine 08/03/2024 10:15 AM [facility]IO MGR Stasis Ulcer Varicose Vein Right (HCC) AB TO EXTRACTABLE NUCLEAR AG EVAL, S Routine 08/03/2024 10:15 AM [facility] MGR Stasis Ulcer Varicose Vein Right (HCC) ANTINUCLEAR ABS (KORTNEY), S Routine 08/03/2024 10:15 AM [facility] MGR Stasis Ulcer Varicose Vein Right (HCC) CREATININE WITH EGFR, S/P Routine 08/03/2024 10:15 AM [facility] MGR Stasis Ulcer Varicose Vein Right (HCC) C-REACTIVE PROTEIN (CRP), S/P Routine 08/03/2024 10:15 AM [facility]IO MGR Stasis Ulcer Varicose Vein Right (HCC) SEDIMENTATION RATE, B Routine 08/03/2024 10:15 AM [facility]IO MGR Stasis Ulcer Varicose Vein Right (HCC) CBC WITH DIFFERENTIAL, B Routine 08/03/2024 10:15 AM [facility]IO MGR Stasis Ulcer Varicose Vein Right (HCC) HCV AB W/REFLEX TO HCV PCR, S Routine 08/03/2024 10:15 AM [facility]IO MGR Stasis Ulcer Varicose Vein Right (HCC) HBC TOTAL AB, SERUM Routine 08/03/2024 10:15 AM [facility]IO MGR Stasis Ulcer Varicose Vein Right (HCC) HBS ANTIBODY, SERUM Routine 08/03/2024 10:15 AM [facility] MGR Stasis Ulcer Varicose Vein Right (HCC) HEPATITIS B SURFACE ANTIGEN Routine 08/03/2024 10:15 AM [facility]IO MGR Stasis Ulcer Varicose Vein Right (HCC) HEMOGLOBIN A1C, B Routine 07/31/2024 11:09 AM [facility] MGR Diabetes Mellitus Type 2 Ulcer (HCC) SEDIMENTATION RATE, B Routine 07/31/2024 11:09 AM [facility]IO MGR Personal History Of Diabetic Foot Ulcer Stasis Ulcer Varicose Vein Right (HCC) Stasis Dermatitis Lower Extremity Bilateral ANCA VASCULITIS PANEL, S Routine 07/31/2024 11:09 AM [facility]IO MGR Stasis Ulcer Varicose Vein Right (HCC) Stasis Dermatitis Lower Extremity Bilateral URINALYSIS WITH MICROSCOPIC IF INDICATED, U Routine 07/31/2024 11:07 AM [facility] MGR Personal History Of Diabetic Foot Ulcer Stasis Ulcer Varicose Vein Right (HCC) Stasis Dermatitis Lower Extremity Bilateral LIPID PANEL, S Routine 04/03/2024 12:09 PM CDT Health Maintenance Examination Adult BASIC METABOLIC PANEL, S/P Routine 04/03/2024 12:09 PM CDT Health Maintenance Examination Adult from Last 3 Months or Most Recently Relevant to Health Maintenance Results * (ABNORMAL) Hemoglobin A1c (09/11/2024 8:03 AM [facility] MGR) Only the most recent of2 resultswithin the time period is included. Hemoglobin A1c, B 9.5(H) 4.2 - 5.6 % 09/11/2024 3:31 PM [facility]IO MGR OWAT Comment: Hemoglobin A1c values greater than or equal to 6.5 percent are diagnostic for diabetes mellitus. Diagnosis should be confirmed by repeat testing. In diabetic patients, HbA1c goals should be discussed with healthcare provider. Blood (Blood, Venous) 09/11/2024 8:03 AM [facility] MGR 09/11/2024 8:12 AM [facility] MGR Yudi Gunn APRN C.N.PNata, Zen ROSS BLOOD ADD-ON Final Result [facility] [address] [place] [address], [place] OWAT [facility] in [place] [address] [place] [address] * MR Foot Left without and with IV Contrast (08/07/2024 10:12 AM [facility] MGR) Anatomical Region Laterality Modality Lower Extremity, Foot, Muscu loskeletal RST LOS, Musculoskeletal ARZ LOS, Muskuloskeletal FLA LOS Left Magne tic Resonance Impressions 08/07/2024 10:16 AM [facility] MGR 1. Mild skin thickening and subcutaneous edema [...] and subacute denervation. Narrative 08/07/2024 10:16 AM [facility] MGR EXAM: MR FOOT LEFT WITHOUT AND WITH [...] changes ofdiabetic microvascular insufficiency and subacute denervation. Julio Gomez M.D. [facility] MRI PROCEDURES Final Re sult * MR Foot Right without and with IV Contrast (08/07/2024 10:12 AM [facility]IO MGR) Anatomical Region Laterality Modality Lower Extremity, Foot, Muscu loskeletal RST LOS, Musculoskeletal ARZ LOS, Muskuloskeletal FLA LOS Right Magne tic Resonance Impressions 08/07/2024 10:28 AM [facility] MGR 1. Soft tissue ulcer along the medial [...] and subacute denervation. Narrative 08/07/2024 10:28 AM [facility] MGR EXAM: MR FOOT RIGHT WITHOUT AND WITH [...] microvascular insufficiency and subacutedenervation. Julio Gomez M.D. IMG MRI PROCEDURES Final Re sult * Lower Extremity Arterial (SHOBHA) - TCPO2 (Wound) (08/06/2024 9:30 AM PORT[facility]IO MGR) Anatomical Region Laterality Modality Other 08/06/2024 7:48 AM [facility]IO MGR Narrative 08/06/2024 10:07 AM [facility]IO MGR Right: Doppler Waveforms: Normal at all levels [...] Foot, Right-Vascular Image Exam (08/03/2024 1:20 PM PORT[facility]OLIO MGR) Only the most recent of3 resultswithin the time period is included. 08/03/2024 1:12 PM [facility]IO MGR Narrative IIMS - 08/03/2024 3:15 PM PORT[facility]IO MGR This order has been created and auto-finalized to support the import of images acquired without order. The clinical documentation to support these images can be found on the encounter that produced images. us Provider Not In System IMG NON RAD IMAGING PROCE DURES Final Result IIMS NA * (ABNORMAL) Dipstick, Urine (08/03/2024 10:19 AM [facility]IO MGR) Hemoglobin, QL, U Negative Negative 08/03/2024 11:19 AM [facility]IO MGR DTL Leukocyte Esterase, U Negative Negative 08/03/2024 11:19 AM [facility]IO MGR DTL Nitrite, U Negative Negative 08/03/2024 11:19 AM [facility]IO MGR DTL Ketone, U 5(A) Negative mg/dL 08/03/2024 11:19 AM [facility]IO MGR DTL Glucose, U 300(A) Negative mg/dL 08/03/2024 11:19 AM [facility]IO MGR DTL Urine 08/03/2024 10:1 9 AM [facility] MGR 08/03/2024 10:52 AM [facility]IO MGR Julio Chadwick M.D. LAB URINE ORDERABLES Final Result [facility] [address] [place] [address], [facility] [address] [place] [address] * Microscopic Automated (08/03/2024 10:19 AM [facility]IO MGR) Microscopy Normal 08/03/2024 11:19 AM [facility]IO MGR DTL RBC <3 <3 /hpf 08/03/2024 11:19 AM [facility] MGR DTL WBC None Seen /hpf 08/03/2024 11:19 AM PORT[facility]OLIO MGR DTL Comment: ----REFERENCE VALUE---- <4 (Males) <11 (Females) Casts, Hyaline 1-3 /lpf 08/03/2024 11:19 AM [facility]IO MGR DTL Urine 08/03/2024 10:1 9 AM [facility] MGR 08/03/2024 10:52 AM [facility]IO MGR Julio Chadwick M.D. LAB URINE ORDERABLES Final Result Performing Organization Address [facility]/ZIP Co de Phone Number [facility] [address] [place], [place] [address] [address] [place] [address] * pH, Urine (08/03/2024 10:19 AM PORTFOLIO MGR) pH, U 5.5 4.5 - 8.0 08/03/2024 11: 52 AM [facility]IO MGR DTL Urine 08/03/2024 10:1 9 AM [facility] MGR 08/03/2024 10:52 AM [facility]IO MGR Julio Chadwick M.D. LAB URINE ORDERABLES Final Result Performing Organization Address City/[facility]/ZIP Co de Phone Number [facility] [address] [place] [address], [facility] [address] [place] [address] * Osmolality, Urine (08/03/2024 10:19 AM PORT[facility]IO MGR) Osmolality, U 547 150 - 1150 mOsm/kg 08/03/2024 11:52 AM [facility]IO MGR DTL Urine 08/03/2024 10:1 9 AM [facility]IO MGR 08/03/2024 10:52 AM [facility]IO MGR Julio Chadwick M.D. LAB URINE ORDERABLES Final Result Performing Organization Address City/[facility]/ZIP Co de Phone Number [facility] [address] [place], [place] [address] [address] [place] [address] * Urinalysis, with Microscopic: Urine, Voided (08/03/2024 10:19 AM PORT[facility]IO MGR) Source Urine, Urine, Voided 08/03/2024 10:51 AM PORTFOLIO MGR DTL Color, U Yellow 08/03/2024 10:52 AM [facility]IO MGR DTL Clarity, U Clear 08/03/2024 10:52 AM [facility]IO MGR DTL Protein, U 8 <26 mg/dL 08/03/2024 11:31 AM [facility]IO MGR DTL Protein/Osmola lity 0.15 <0.42 ratio 08/03/2024 11:52 AM [facility]IO MGR DTL Predicted 24 HR Protein, U 151 <229 mg/24 h 08/03/2024 11:52 AM [facility]IO MGR DTL Predicted Range 48-475 mg/24 h 08/03/2024 11:52 AM [facility]IO MGR DTL Urine (Urine, Voided) 08/03/2024 10:19 AM [facility]IO MGR 08/03/2024 10:51 AM [facility]IO MGR Julio Chadwick M.D. LAB URINE ORDERABLES Final Result Performing Organization Address City/[facility]/ZIP Co de Phone Number [facility] [address] [place] [address], [facility] [address] [place] [address] * Antibody to Extractable Nuclear Antigen Evaluation (08/03/2024 10:15 AM PORT[facility]IO MGR) SS-A/Ro Ab, IgG, S <0.2 <1.0 (Negative) U 08/03/2024 4:06 PM PORTFOLIO MGR SDSC SS-B/La Ab, IgG, S <0.2 <1.0 (Negative) U 08/03/2024 4:06 PM PORTFOLIO MGR SDSC Sm Ab, IgG, S <0.2 <1.0 (Negative) U 08/03/2024 4:06 PM PORTFOLIO MGR SDSC MACHINE RECORDS UNITS SUPERVISOR Ab, IgG, S 0.4 <1.0 (Negative) U 08/03/2024 4:06 PM PORTFOLIO MGR SDSC Scl 70 Ab, IgG, S <0.2 <1.0 (Negative) U 08/03/2024 4:06 PM PORTFOLIO MGR SDSC Shante 1 Ab, IgG, S <0.2 <1.0 (Negative) U 08/03/2024 4:06 PM PORTFOLIO MGR SDS Blood (Blood, Venous) 08/03/2024 10:15 AM PORTFOLIO MGR 08/03/2024 2:02 PM PORT[facility]OLIO MGR Julio Chadwick M.D. LAB BLOOD ADD-ON Final Res ult Performing Organization Address [facility]/State/[facility] Co de Phone Number [facility] [address] [place] [address] [facility] [address] [place] [place] [address] * HCV Ab w/Reflex to HCV PCR, Serum (08/03/2024 10:15 AM PORTFOLIO MGR) HCV Ab, S Negative Negative 08/03/2024 3:20 PM PORTFOLIO MGR [facility] Comment: Consumption of high-dose biotin supplement within 12 hours of blood collection for this test can cause false-negative results. Blood (Blood, Venous) 08/03/2024 10:15 AM [facility]IO MGR 08/03/2024 2:01 PM [facility]IO MGR Julio Chadwick M.D. LAB MICROBIOLOGY - BLOOD O RDERABLES Final Result Performing Organization Address City/[facility] Co de Phone Number [facility] [address] [place] [address] [facility] [address] [place] [place] [address] * Cryoglobulin (08/03/2024 10:15 AM PORTFOLIO MGR) Pathologist [facility] Cryoglobulin , S Negative. This test is negative at 24 hours. All samples are held and reviewed again at 7 days. If delayed precipitation occurs after 7 days, Immunofixation will be performed and an additional report will follow. Negative %ppt 08/07/2024 10:33 AM PORTFOLIO MGR [facility] Blood (Blood, Venous) 08/03/2024 10:15 AM PORT[facility]OLIO MGR 08/03/2024 1:58 PM PORT[facility]OLIO MGR Julio Chadwick M.D. LAB BLOOD NON ADD-ON Final Result Performing Organization Address [facility] Co de Phone Number [facility] [address] [place] [address] [facility] [address] [place] [address] [place] [address] * HBc Total Ab, Serum (08/03/2024 10:15 AM PORTFOLIO MGR) [facility] HBc Total Ab, S Negative Negative 08/03/2024 3:26 PM PORTFOLIO MGR [facility] Blood (Blood, Venous) 08/03/2024 10:15 AM PORT[facility]OLIO MGR 08/03/2024 2:01 PM PORT[facility]OLIO MGR Julio Chadwick M.D. LAB MICROBIOLOGY - BLOOD O RDERABLES Final Result Performing Organization Address City/[facility]/ZIP Co de Phone Number [facility] [address] [place] [address] [facility] [address] [place] [address] * HBs Antibody, Serum (08/03/2024 10:15 AM PORTFOLIO MGR) [facility] HBs Antibody, S Negative 3:26 PM PORTFOLIO MGR [facility] Comment: Patient is NOT immune to HBV infection. Consumption of high-dose biotin supplement within 12 hours of blood collection for this test can cause false-negative results. ----REFERENCE VALUE---- Unvaccinated: Negative Vaccinated: Positive HBs Antibody, Quantitative, S <3.5 mIU/mL 08/03/2024 3:26 PM PORTFOLIO MGR [facility] Comment: ----REFERENCE VALUE---- Unvaccinated: <8.5 mIU/mL Vaccinated: >=11.5 mIU/mL Blood (Blood, Venous) 08/03/2024 10:15 AM PORT[facility]OLIO MGR 08/03/2024 2:01 PM PORTFOLIO MGR Julio Chadwick M.D. LAB MICROBIOLOGY - BLOOD O RDERABLES Final Result [facility] [address] [place] [address] [facility] [address] [place] [address] * Hepatitis B Surface Antigen (08/03/2024 10:15 AM PORTFOLIO MGR) HBs Antigen, S Negative Negative 08/03/2024 3:26 PM PORTFOLIO MGR [facility] Blood (Blood, Venous) 08/03/2024 10:15 AM PORTFOLIO MGR 08/03/2024 2:01 PM PORTFOLIO MGR Julio Chadwick M.D. LAB MICROBIOLOGY - BLOOD O RDERABLES Final Result Performing Organization Address City/[facility]/ZIP Co de Phone Number [facility] [address] [address] [place] [address] * Sedimentation Rate (08/03/2024 10:15 AM PORTFOLIO MGR) Only the most recent of2 resultswithin the time period is included. Sedimentation Rate, B 5 2 - 20 mm/h 08/03/2024 11:37 AM PORTFOLIO MGR DTL Blood (Blood, Venous) 08/03/2024 10:15 AM PORTFOLIO MGR 08/03/2024 10:39 AM PORTFOLIO MGR us Julio Chadwick M.D. LAB BLOOD ADD-ON Final Res ult [facility] [address] [place] [address], [facility] DTL [facility] [address] [place] [address] * CBC with Differential, Blood (08/03/2024 10:15 AM PORTFOLIO MGR) Hemoglobin 13.5 13.2 - 16.6 g/dL 08/03/2024 10:52 AM PORTFOLIO MGR DTL Hematocrit 42.2 38.3 - 48.6 % 08/03/2024 10:52 AM PORTFOLIO MGR DTL Erythrocytes 4.90 4.35 - 5.65 x10(12)/L 08/03/2024 10:52 AM PORTFOLIO MGR DTL MCV 86.1 78.2 - 97.9 fL 08/03/2024 10:52 AM PORTFOLIO MGR DTL RBC Distrib Width 13.2 11.8 - 14.5 % 08/03/2024 10:52 AM PORTFOLIO MGR DTL Platelet Count 194 135 - 317 x10(9)/L 08/03/2024 10:52 AM PORTFOLIO MGR DTL Leukocytes 6.9 3.4 - 9.6 x10(9)/L 08/03/2024 10:52 AM PORTFOLIO MGR DTL Neutrophils 4.17 1.56 - 6.45 x10(9)/L 08/03/2024 10:52 AM PORTFOLIO MGR [facility] Lymphocytes 1.65 0.95 - 3.07 x10(9)/L 08/03/2024 10:52 AM PORTFOLIO MGR DTL Monocytes 0.71 0.26 - 0.81 x10(9)/L 08/03/2024 10:52 AM PORTFOLIO MGR DTL Eosinophils 0.34 0.03 - 0.48 x10(9)/L 08/03/2024 10:52 AM PORTFOLIO MGR DTL Basophils 0.06 0.01 - 0.08 x10(9)/L 08/03/2024 10:52 AM PORTFOLIO MGR DTL Blood (Blood, Venous) 08/03/2024 10:15 AM PORTFOLIO MGR 08/03/2024 10:39 AM PORTFOLIO MGR Julio Chadwick M.D. LAB BLOOD ADD-ON Final Res ult [facility] [address] [place] [address], [place] DTL [facility] [address] [place] [address] [facility] [address] [place] [address] * Rheumatoid Factor (08/03/2024 10:15 AM PORTFOLIO MGR) Rheumatoid Factor, S <15 <15 IU/mL 08/03/2024 3:06 PM PORTFOLIO MGR [facility] Blood (Blood, Venous) 08/03/2024 10:15 AM PORTFOLIO MGR 08/03/2024 2:36 PM PORTFOLIO MGR Julio Chadwick M.D. LAB BLOOD ADD-ON Final Res ult Performing Organization Address City/[facility] Co de Phone Number [facility] [address] [place] [address] [facility] [address] [place] [place] [address] * Immunoglobulins (IgG, IgA, and IgM) (08/03/2024 10:15 AM PORTFOLIO MGR) Pathologist [facility] Immunoglobulin A (IgA), S 212 61 - 356 mg/dL 08/03/2024 4:00 PM PORTFOLIO MGR [facility] Immunoglobulin M (IgM), S 55 37 - 286 mg/dL 08/03/2024 4:00 PM PORTFOLIO MGR [facility]SC Immunoglobulin G (IgG), S 1460 767 - 1590 mg/dL 08/03/2024 4:00 PM PORTFOLIO MGR [facility] Blood (Blood, Venous) 08/03/2024 10:15 AM PORTFOLIO MGR 08/03/2024 1:58 PM PORTFOLIO MGR Julio Chadwick M.D. LAB BLOOD ADD-ON Final Res ult Performing Organization Address City/[facility]/ZIP Co de Phone Number [facility] [address] [place] [address] [facility] [address] [place] [address] * Complement C3 (08/03/2024 10:15 AM PORTFOLIO MGR) Complement C3, S 118 75 - 175 mg/dL 08/03/2024 4:13 PM PORTFOLIO MGR [facility] Blood (Blood, Venous) 08/03/2024 10:15 AM PORTFOLIO MGR 08/03/2024 1:58 PM PORTFOLIO MGR us Julio Chadwick M.D. LAB BLOOD ADD-ON Final Res ult [facility] [address] [place] [address] [facility] [address] [place] [address] * Complement C4 (08/03/2024 10:15 AM PORTFOLIO MGR) Complement C4, S 23 14 - 40 mg/dL 08/03/2024 4:12 PM PORTFOLIO MGR [facility] Blood (Blood, Venous) 08/03/2024 10:15 AM PORTFOLIO MGR 08/03/2024 1:58 PM PORTFOLIO MGR us Julio Chadwick M.D. LAB BLOOD ADD-ON Final Res ult Performing Organization Address City/[facility]/ZIP Co de Phone Number [facility] [address] [place] [address] [facility] [address] [place] [address] * CRP (C-Reactive Protein) (08/03/2024 10:15 AM PORTFOLIO MGR) C-Reactive Protein (CRP), S <3.0 <5.0 mg/L 08/03/2024 11:09 AM PORTFOLIO MGR DTL Blood (Blood, Venous) 08/03/2024 10:15 AM PORTFOLIO MGR 08/03/2024 10:52 AM PORTFOLIO MGR us Julio Chadwick M.D. LAB BLOOD ADD-ON Final Res ult [facility] [address] [place] [address], [facility] [address] [place] [address] * KORTNEY (Antinuclear Antibodies) (08/03/2024 10:15 AM PORTFOLIO MGR) Antinuclear Ab, S 0.3 <=1.0 (Negative) U 08/03/2024 6:04 PM PORTFOLIO MGR [facility] Comment: ----ADDITIONAL INFORMATION---- Method: Enzyme-linked immunoassay using HEp-2 nuclear extract supplemented with purified antigens. Blood (Blood, Venous) 08/03/2024 10:15 AM PORTFOLIO MGR 08/03/2024 2:02 PM PORTFOLIO MGR Julio Chadwick M.D. LAB BLOOD ADD-ON Final Res ult Performing Organization Address [facility] Co de Phone Number [facility] [address] [place] [address] [facility] [address] [place] [address] * Creatinine with Estimated GFR (08/03/2024 10:15 AM PORTFOLIO MGR) Creatinine 0.88 0.74 - 1.35 mg/dL 08/03/2024 11:09 AM PORTFOLIO MGR DTL Estimated GFR (eGFR) >90 >=60 mL/min/BSA 08/03/2024 11:09 AM PORTFOLIO MGR DT Comment: Estimated GFR calculated using the 2020 CKD_EPI creatinine equation. Blood (Blood, Venous) 08/03/2024 10:15 AM PORTFOLIO MGR 08/03/2024 10:52 AM PORTFOLIO MGR us Julio Chadwick M.D. LAB BLOOD ADD-ON Final Res ult Performing Organization Address City/[facility]/ZIP Co de Phone Number [facility] [address] [place] [address], [place] [facility] [address] [place] [address] * ANCA (Antineutrophil Cytoplasmic Antibodies) Vasculitis Panel (07/31/2024 11:09 AM PORTFOLIO MGR) Pathologist [facility] Myeloperoxidase Ab, S <0.2 <0.4 (Negative ) U 08/01/2024 9:06 AM PORTFOLIO MGR [facility] Proteinase 3 Ab (PR3), S <0.2 <0.4 (Negative ) U 08/01/2024 9:06 AM PORTFOLIO MGR [facility] Blood (Blood, Venous) 07/31/2024 11:09 AM PORTFOLIO MGR 08/01/2024 6:41 AM PORTFOLIO MGR us Yudi Gunn APRN, C.N.P., D.N.P. LA B BLOOD ADD-ON Final Result [facility] [address] [place] [address] [facility] [address] [place] [address] * (ABNORMAL) Urinalysis with Microscopic if Indicated (07/31/2024 11:07 AM PORTFOLIO MGR) Pathologist [facility] Source Urine, Urine, Midstream 07/31/2024 11:17 AM PORTFOLIO MGR FB60 Clarity Clear Clear 07/31/2024 11:20 AM PORTFOLIO MGR FB60 Color Yellow 07/31/2024 11:20 AM PORTFOLIO MGR FB60 Comment: ----REFERENCE VALUE---- Colorless Yellow Linh Blood Negative Negative 07/31/2024 11:20 AM PORTFOLIO MGR FB60 Nitrite Negative Negative 07/31/2024 11:20 AM PORTFOLIO MGR FB60 Leukocyte Esterase Negative Negative 07/31/2024 11:20 AM PORTFOLIO MGR FB60 Protein Negative mg/dL 07/31/2024 11:20 AM PORTFOLIO MGR FB60 Comment: ----REFERENCE VALUE---- Negative Trace Glucose 100(A) Negative mg/dL 07/31/2024 11:20 AM PORTFOLIO MGR FB60 Ketones, QI(U) Negative Negative mg/dL 07/31/2024 11:20 AM PORTFOLIO MGR FB60 Bilirubin Negative Negative 07/31/2024 11:20 AM PORTFOLIO MGR FB60 pH 6.0 5.0 - 8.0 07/31/2024 11:20 AM PORTFOLIO MGR FB60 Specific [place] 1.010 1.001 - 1.035 07/31/2024 11:20 AM PORTFOLIO MGR FB60 Urobilinogen 0.2 0.2 - 1.0 mg/dL 07/31/2024 11:20 AM PORTFOLIO MGR FB60 Urine (Urine, Midstream) 07/31/2024 11:07 AM PORTFOLIO MGR 07/31/2024 11:17 AM PORTFOLIO MGR Yudi Gunn APRN, C.N.P., D.N.P. LA B URINE ORDERABLES Final Result [facility] [address] [place] [address], [facility] FB60 [facility] in [place] [address] [place] [address] * Lipid Panel (04/03/2024 12:09 PM CDT) [...] PM CDT us Yudi Gunn APRN, C.N.P., D.N.PNata LA B BLOOD ADD-ON Final Result [facility] [address] [place] [address], [facility] OWAT [facility] in [place] [address] [place] [address] * (ABNORMAL) Basic Metabolic Panel (04/03/2024 12:09 [...] CDT Yudi Gunn APRN, C.N.P., D.N.P. LA B BLOOD ADD-ON Final Result [facility] [address] [place] [address], [place] [address] [facility] in [place] [address], [place] [address] from Last 3 Months or Most Recently Relevant to Health Maintenance Insurance MEDICARE [facility] [[email or web address]] Care Teams Operational Intelligence Analyst Relationship Specialty Start Date End Date Yudi Gunn APRN, C.N.P., D.N.P. [address] [place] [address] PCP - General Family Medicine 12/05/23 [facility] 04/03/24
--- OUTSIDE RECORDS SUMMARY | 2024-10-01 09:39 | XMS_ITS | Encounter Summary ---
Author Organization [facility] Address [address] [place] [address] Care Team Providers Care Cnc Router Operator Name Role Phone Yudi Gunn APRN, C.N.P., D.N.P. P [facility] Care Provider Encounter Details Date Type Department Care Team (Late st Contact Info) Description 09/21/2024 Clinical Communication Department of Family Medicine, [facility], in [place], [place] [address] [place] [phone] Yudi Gunn APRN, C.N.P., D.N.P. [address], [place] [phone] Social History Tobacco Use Types Packs/Day Years Used Date Smoking Tobacco: Former Cigarettes Smokeless Tobacco: Never Alcohol Use Standard Drinks/Week Comments Yes 16 (1 standard drink = 0.6 oz pu re alcohol) [facility] Utilities Answer Date Recorded In the past 12 months has [facility] [employer], gas, oil, or water [employer] threatened to shut off services in your [...] AM CDT Legal Sex Male 5:43 PM CONSTRUCTION TECHNICIAN Gender Identity Male 04/03/2024 10:02 AM CDT Sexual Orientation Choose not to disclose 2023 10:02 AM CDT documented as of this encounter Miscellaneous Notes * Telephone Encounter - Eliana Watson LNataP.N. - 09/25/2024 1:07 PM CONSTRUCTION TECHNICIAN Unable to leave a voicemail message for patient to schedule with Yudi or to Call Patient Experience [phone]. TRUCTION TECHNICIAN documented in this encounter Plan of Treatment Not on file documented as of this encounter Visit Diagnoses Not on filedocumented in this encounter Additional Health Concerns Assessment Noted Time PHQ-9 Depression Total Score: 13 024 9:37 AM CDT documented as of this encounter Care Teams Cnc Router Operator Relationship Specialty Start Date End Date Martin-Yudi Weaver APRN, C.N.P., D.N.P. [address] [place] [phone] PCP - General Family Medicine 12/05/23 [facility] Ophthalmology 04/03/24 documented as of this encounter
--- OUTSIDE RECORDS SUMMARY | 2024-10-01 09:39 | XMS_ITS | Encounter Summary ---
Author Organization [facility] Address [address] [place] [address] Care Team Providers Care Beck Tender Name Role Phone Yudi Gunn APRN, C.N.P., D.N.P. P [facility] Care Provider Reason for Referral * Outpatient (Routine) - Authorized Specialty Diagnoses / Procedures Referred By Zuleyma t Referred To Contact Family Medicine Yudi Gunn APRN, C.N.P., D.N.P. [address] [place] [address] Phone: tel: fax: [facility] Referral ID Status Reason Start Date Expiration Date V isits Requested Visits Authorized [id number] Authorized 09/12/2024 03/14/2026 1 1 SEWER Encounter Details Date Type Department Care Team (Late st Contact Info) Description 09/12/2024 Orders Only Department of Family Medicine, [facility], in [place], [place] [address] [place] [address] Yudi Gunn APRN, C.N.P., D.N.P. [address] [place] [address] Social History Tobacco Use Types Packs/Day Years Used Date Smoking Tobacco: Former Cigarettes Smokeless Tobacco: Never Alcohol Use Standard Drinks/Week Comments Yes 16 (1 standard drink = 0.6 oz pu re alcohol) [facility] Utilities Answer Date Recorded In [...] AM CDT Legal Sex Male 5:43 PM RAND SEWER Gender Identity Male 04/03/2024 10:02 AM CDT [...] documented as of this encounter Care Teams Beck Tender Relationship Specialty Start Date End Date Martin-Yudi Weaver APRN, C.N.P., D.N.P. [address] [phone] PCP - General Family Medicine 12/05/23 [facility] Ophthalmology 04/03/24 documented as of this encounter
--- OUTSIDE RECORDS SUMMARY | 2024-10-01 09:39 | XMS_ITS | Encounter Summary ---
Author Organization [facility] Address [address] [place] [address] Care Team Providers Care Strategic Marketing Associate Name Role Phone Yudi Gunn APRN, C.N.P., D.N.P. P [facility] Care Provider Reason for Visit * Reason Onset Date Comments Appt Request 09/27/2024 Pre-op Encounter Details Date Type Department Care Team (Late st Contact Info) Description 09/27/2024 Clinical Communication Department of Family Medicine, [facility], in [place], [place] [address] [place] [phone] Yudi Gunn APRN, C.N.P., D.N.P. [address] [phone] Appt Request (Pre-op) Social History Tobacco Use Types Packs/Day Years Used Date Smoking Tobacco: Former Cigarettes Smokeless Tobacco: Never Alcohol Use Standard Drinks/Week Comments Yes 16 (1 standard drink = 0.6 oz pu re alcohol) [facility] Utilities Answer Date Recorded In the past 12 months has [facility] [employer] gas, oil, or water company threatened to [...] AM CDT Legal Sex Male 5:43 PM INSPECTOR AGRICULTURAL COMMODITIES Gender Identity Male 04/03/2024 10:02 AM CDT Sexual Orientation Choose not to disclose 2023 10:02 AM CDT documented as of this encounter Miscellaneous Notes * Telephone Encounter - Eileen Hodge, CNataMOli - 09/27/2024 3:23 PM INSPECTOR AGRICULTURAL COMMODITIES SUBJECTIVE CHIEF COMPLAINT / REASON FOR CALL Appt Request (Pre-op) Information Discussed Called and informed patient of information per Bob Vela P.A.-C. Patient was not happy with the information and hung up on sports book writer. PLAN Disposition/Recommendation: n/a patient hung up Information/Education: not applicable Caller agreeable to plan of care: no Patient hung up The following references were used: provider Bob Vela P.A.-C. [employer] documented in this encounter Plan of Treatment Not on file documented as of this encounter Visit Diagnoses Not on filedocumented in this encounter Additional Health Concerns Assessment Noted Time PHQ-9 Depression Total Score: 13 024 9:37 AM CDT documented as of this encounter Care Teams Strategic Marketing Associate Relationship Specialty Start Date End Date Martin-Yudi Weaver APRN, C.N.P., D.N.P. [address] [phone] PCP - General Family Medicine 12/05/23 [facility] Ophthalmology 04/03/24 documented as of this encounter
--- OUTSIDE RECORDS SUMMARY | 2024-10-01 09:39 | XMS_ITS | Encounter Summary ---
Author Organization [facility] Address [address] [place] [address] Care Team Providers Care Mill Tender Warm Up Name Role Phone Yudi Gunn APRN, C.N.P., D.N.P. P [facility] Care Provider Reason for Visit * Reason Comments Diabetes * Outpatient (Routine) - Authorized Specialty Diagnoses / Procedures Referred By Zuleyma fang Referred To Contact Endocrinology Diagnoses Pain Shoulder Left Yudi Gunn APRN, C.N.P., D.N.P. [address] [place] [address] Phone: tel: fax: [facility] Referral ID Status Reason Start Date Expiration Date V isits Requested Visits Authorized [id number] Authorized 05/03/2024 11/02/2025 1 1 Encounter Details Date Type Department Care Team (Latest Contact Info) Description 09/11/2024 9:00 AM LEGAL ADMINISTRATOR Comprehensive Visit Department of Endocrinology in [place], [place] [address] [place] [address] Lydia Cox, LEXIS, P.A.-C., P.A. [address], [place] [address] Pain Shoulder Left Social History Tobacco Use Types Packs/Day Years Used Date Smoking Tobacco: Former Cigarettes Smokeless Tobacco: Never Alcohol Use Standard Drinks/Week Comments Yes 16 (1 standard drink = 0.6 oz pu re alcohol) [facility] Utilities Answer Date Recorded In [...] AM CDT Legal Sex Male 5:43 PM LEGAL ADMINISTRATOR Gender Identity Male 04/03/2024 10:02 AM CDT [...] documented as of this encounter Care Teams Mill Tender Warm Up Relationship Specialty Start Date End Date Yudi Gunn APRN, C.N.P., D.N.P. [address] [place] [address] PCP - General Family Medicine 12/05/23 [facility] Ophthalmology 04/03/24 documented as of this encounter
--- OUTSIDE RECORDS SUMMARY | 2024-10-01 09:39 | XMS_ITS | Encounter Summary ---
Author Organization [facility] Address [address] [place] [address] Care Team Providers Care Integration Consultant Name Role Phone Yudi Gunn APRN, C.N.P., D.N.P. P [facility] Care Provider Encounter Details Date Type Department Care Team (Late st Contact Info) Description 09/11/2024 7:50 AM 7TH GRADE TEACHER - 09/11/2024 11:59 PM [facility] Hospital Encounter Department of Laboratory Medicine in [place], [place] [address] [place] [phone] Yudi Gunn APRN, C.N.P., D.N.P. [address] [place] [phone] 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) Discharge Disposition: Home or Self Care Social History Tobacco Use Types Packs/Day Years Used Date Smoking Tobacco: Former Cigarettes Smokeless Tobacco: Never Alcohol Use Standard Drinks/Week Comments Yes 16 (1 standard drink = 0.6 oz pu re alcohol) [facility] Utilities Answer Date Recorded In the past 12 months has [employer], gas, oil, or water [employer] threatened to shut off services in your [...] AM CDT Legal Sex Male 5:43 PM 7TH GRADE TEACHER Gender Identity Male 04/03/2024 10:02 AM CDT [...] A1C, B Routine 09/11/2024 8:0 3 AM 7TH GRADE TEACHER 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) documented in this encounter Results * (ABNORMAL) Hemoglobin A1c (09/11/2024 8:03 AM 7TH GRADE TEACHER) Hemoglobin A1c, B 9.5(H) 4.2 - 5.6 % 09/11/2024 3:31 PM 7TH GRADE TEACHER OWAT Comment: Hemoglobin A1c values greater than or equal to 6.5 percent are diagnostic for diabetes mellitus. Diagnosis should be confirmed by repeat testing. In diabetic patients, HbA1c goals should be discussed with healthcare provider. Blood (Blood, Venous) 09/11/2024 8:03 AM 7TH GRADE TEACHER 09/11/2024 8:12 AM 7TH GRADE TEACHER us Yudi Gunn APRN, C.N.P., D.N.P. LA B BLOOD ADD-ON Final Result [facility] [address] [place] [address], [place] OWAT [facility] in [place] [address] [place] [address] documented in this encounter Visit Diagnoses Diagnosis 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) documented in this encounter Additional Health Concerns Assessment Noted Time PHQ-9 Depression Total Score: 13 024 9:37 AM CDT documented as of this encounter Care Teams Integration Consultant Relationship Specialty Start Date End Date Martin-Yudi Weaver APRN, C.N.P., D.N.P. [address] [place] [phone] PCP - General Family Medicine 12/05/23 [facility] Ophthalmology 04/03/24 documented as of this encounter
[2024-10-01 10:04] VITALS: BP 110/83; PULSE 106; RESP 16; TEMP 36.4; O2SAT 98; BMI 28.8
[2024-10-01] MEDS: SODIUM CHLORIDE 0.9 % (FLUSH) 10 ML SYRINGE IVF (10:15)
[2024-10-01] MEDS: 0.9 % SODIUM CHLORIDE 500 ML 500 ML 100 ML IV (10:15)
[2024-10-01] MEDS: BUPIVACAINE 0.25% 30 ML INJECTION (11:00)
[2024-10-01] MEDS: CEFAZOLIN 2 GM INJ IVP (11:05)
--- NOTE | 2024-10-01 11:18 | CRLHL7_ITS ---
For Patients: As a result of the Cures Act, medical imaging exams and procedure reports are released immediately into your electronic medical record. You may view this report before your referring provider. If you have questions, please contact your health care provider. 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 Fluoroscopic time 1.2 seconds. 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 Dictated by Luis Rosario MD @ 10/01/2024 12:42:10 PM (Electronically Signed)
[2024-10-01 12:28] VITALS: BP 97/76; PULSE 94; RESP 16; TEMP 36.5; O2SAT 94
[2024-10-01 12:30] VITALS: BP 107/70; PULSE 95; RESP 16; O2SAT 95
[2024-10-01 12:45] VITALS: BP 115/89; PULSE 91; RESP 16; O2SAT 93
[2024-10-01 13:00] VITALS: BP 127/86; PULSE 91; RESP 16; O2SAT 94
--- NOTE | 2024-10-01 15:52 | W.PODPROC_ITS ---
Date of Procedure: 10/01/24 Surgeon: Alberto Floyd DPM Pre-op Diagnosis: 1. Osteomyelitis right foot 2. Nonhealing diabetic ulceration right foot Post-op Diagnosis: 1. Osteomyelitis right foot 2. Nonhealing diabetic ulceration right foot Type of Procedure: 1. Partial 1st ray resection right foot Indications: Patient has a diabetic foot infection with osteomyelitis. He has longstanding ulceration with nonhealing. Due to the level infection he needs surgical intervention. I reviewed the procedure including potential complications. These include but not limited to: Poor wound healing, continued infection, potentially future surgery, potential loss of limb, deep venous thrombosis, pulmonary embolism, potential . He understands risks written consent was obtained. Site marked. Procedure Description: Patient brought the operating room placed supine position on operating table. IV sedation was initiated local anesthetic injected into the right foot. He was prepped and draped in sterile fashion. Standard time-out protocol followed. T he right limb was exsanguinated the tourniquet inflated. Incision started on the lateral aspect base of the great toe extended dorsally and plantarly converging medially and extending along the medial 1st metatarsal. The incision was carried directly to bone. Soft tissue was removed selected away from the underlying osseous structures. The cartilage of the 1st metatarsal head was loose and friable. Underlying bone was sin and unhealthy. The hallux was disarticulated at the MPJ and removed. All necrotic tissue excised. First metatarsal head was exposed. Sagittal saw was used to resect the 1st metatarsal at a level where the bony tissue appeared more Normal. A 2 mm clear margin wafer was then also taken and sent to pathology. Portions of the 1st metatarsal head were sent for culture as well as to pathology. Once all necrotic and unhealthy tissue had been excised wound was thoroughly irrigated normal sterile saline. I did not create flap that could incorporate the ulceration and instead will rely on secondary intention to heal the wound. The tourniquet was released and all bleeding vessels cauterized. The dorsal and plantar flaps were brought together with 3-0 nylon and a series of simple and retention sutures were placed. Sterile wet-to-dry dressing was placed into the ulcer site and then a well-padded sterile dressing applied to the foot. Patient is transferred from OR to same-day surgery. He utilize a cam boot and walker. He will continue with weight to the heel. Both written and verbal postop instructions given. Follow up in clinic in 3 days. Continue Levaquin. Anesthesia: MAC and local Hemostasis: ankle Estimated blood loss (mL): 30 Specimens: specimen obtained, sent to pathology (First metatarsal head to pathology, clear margin 1st metatarsal to pathology, 1st metatarsal head culture) Disposition: same day
--- NOTE | 2024-10-02 10:12 | W.ANESCHARGE ---
Anesthesia Charges Start Date/Time Anesthesia Start Date: 10/01/24 Anesthesia Start Time: 10:53 Stop Date/Time Anesthesia Stop Date: 10/01/24 Anesthesia Stop Time: 12:32
== END 2024-10-01 13:30 | disposition home or self-care (01) ==
PROVIDERS: Visit Provider Podiatrist
PROC: (CPT 28810; principal; 2024-10-01 11:00)
DX: M86.171 Other acute osteomyelitis, right ankle and foot (principal); E11.621 Type 2 diabetes mellitus with foot ulcer; L97.416 Non-pressure chronic ulcer of right heel and midfoot with bone involvement without evidence of necrosis; B96.5 Pseudomonas (aeruginosa) (mallei) (pseudomallei) as the cause of diseases classified elsewhere
CPT/HCPCS: 28810; 01462; 73620; 82962; 87070; 87075; 87186; 87205; 88304; 88311; J0665; J0690; J1100; J2250; J2405; J2704; J3010; J7030